=== PATIENT | female | born 1950 | race Caucasian/White ===

== ENCOUNTER → 2017-01-19 | Outpatient (CLI) | payer OTHER ==
[~2017-01-19] MED LIST: ASPI81TA28 PO; CYAN500T SL; LORA-741 PO; LPR25 PO; OMEG10007 PO; TRAM-10 PO
[2017-01-19 11:30] LABS: BLOOD UREA NITROGEN 17 mg/dl (7-18); BUN/CREATININE RATIO 23.5 (10-20); CALCIUM 9.3 mg/dl (8.5-10.1); CARBON DIOXIDE 31 mmol/L (21-32); CHLORIDE 106 mmol/L (98-107); CREATININE 0.72 mg/dl (0.60-1.20); GLUCOSE 96 mg/dl (70-99); MAGNESIUM 2.3 mg/dl (1.8-2.4); POTASSIUM 3.8 mmol/L (3.5-5.1); SODIUM 141 mmol/L (136-145)
== END | disposition home or self-care (01) ==
LOC: C.LABBC 08:52
PROVIDERS: ATTEND Family Medicine
DX: I10 Essential (primary) hypertension (principal); E53.8 Deficiency of other specified B group vitamins; R00.2 Palpitations

== ENCOUNTER → 2017-07-19 | Outpatient (CLI) | payer OTHER ==
[2017-07-19 11:03] LABS: BASO % 0.4 %; BASO ABS # 0.02 K/uL (0-0.2); COMPLETE YES; EOS % 1.5 %; HEMATOCRIT 43.3 % (37-47); LYMPH % 40.6 %; LYMPH ABS # 2.21 K/uL (1.2-3.4); MEAN CELL VOLUME 91.2 fL (80-100); MEAN CORPUSCULAR HEMOGLOBIN 29.5 pg (25-34); MEAN CORPUSCULAR HGB CONC 32.3 g/dl (32-36); MEAN PLATELET VOLUME 9.7 fL (7.4-10.4); NEUT % 48.5 %; PLATELET COUNT 267 K/uL (130-400); RED BLOOD COUNT 4.75 M/uL (4.2-5.4); WHITE BLOOD COUNT 5.45 K/uL (4.8-10.8)
[2017-07-19 11:21] LABS: BLOOD UREA NITROGEN 23 mg/dl (7-18); BUN/CREATININE RATIO 32.9 (10-20); CALCIUM 9.4 mg/dl (8.5-10.1); CARBON DIOXIDE 29 mmol/L (21-32); CHLORIDE 105 mmol/L (98-107); CHOLESTEROL 201 mg/dl (0-200); CREATININE 0.69 mg/dl (0.60-1.20); GLUCOSE 100 mg/dl (70-99); POTASSIUM 4.5 mmol/L (3.5-5.1); SODIUM 140 mmol/L (136-145)
[2017-07-19 11:24] LABS: CHOLESTEROL/HDL RATIO 3.5; HDL CHOLESTEROL 57 mg/dl; LDL CHOLESTEROL CALCULATED 123 mg/dl; TRIGLYCERIDES 105 mg/dl (0-150); VERY LOW DENSITY LIPOPROT CALC 21 mg/dl
== END | disposition home or self-care (01) ==
LOC: C.LABBC 07:27
PROVIDERS: ATTEND Family Medicine
DX: Z00.00 Encounter for general adult medical examination without abnormal findings (principal); I10 Essential (primary) hypertension; E53.8 Deficiency of other specified B group vitamins; G43.909 Migraine, unspecified, not intractable, without status migrainosus; Z13.220 Encounter for screening for lipoid disorders

== ENCOUNTER 2024-08-21 00:10 | Inpatient (IN) ==
--- OUTSIDE RECORDS SUMMARY | 2024-08-21 00:17 | External Medical Summary | Summary of Care ---
Author Name Unknown Organization [facility] Address [address] [place] [address] Phone [phone] Care Team Providers Care Spine Supervisor Name Role Phone Joceline Salter DO Primary Care Provider [phone]- [phone] Reason for Referral * Precert (Within 10 days (routine)) - Authorized Specialty Diagnoses / Procedures Referred By Contac t Referred To Contact Cardiac Studies Diagnoses Abnormal echocardiogram HTN, goal below 140/90 Procedures ECHO, COMPLETE (2D), TRANS-THORACIC Lo Eli CRNP [address] [place] [address] Referral ID Status Reason Start Date Expiration Date V isits Requested Visits Authorized [id number] Authorized Precert 10/21/2024 999 999 Reason for Visit * Reason Onset Date Comments Test Results 04/21/2024 Encounter Details Date Type Department Care Team (Late st Contact Info) Description 04/21/2024 Telephone Cardiology, [facility] [address] [place] [address] Lo Eli CRNP [address] [place] [address] Test Results Allergies Active Allergy Reactions Criticality Noted Date Comments Atorvastatin 05/06/2023 Joint pain Carvedilol Psych complications 07/01/2023 Estrogens 03/30/2016 Hydrochlorothiazide Other (Please comment) 07/01/2023 Fatigue,visual problems,muscle weakness, Indapamide 10/07/2023 Increased BP, agitation, shaky Lisinopril Other (Please comment) 07/01/2023 Visual problems, muscle cramps, Morphine And Codeine Rash 04/17/2010 Morphine Sulfate 04/17/2010 Nausea and vomiting Oxycodone-Acetaminophen 04/17/2010 Hallucinations Fluoxetine Other (Please comment) 03/30/2016 Chest pain and difficulty breathing documented as of this encounter (statuses as of 07/21/2024) Medications Medication Sig Dispensed Refills Start Date End Date Status B-12 [address] under the tongue. 04/17/2010 Active IMODIUM A-D 2 MG PO TABS Take by mouth as needed. Active Mometasone Furoate 0.1 % External Solution (Elocon)Indication s:Plant allergic contact dermatitis Apply topically to affected area 1 Applicator daily . 60 mL 04/01/2022 Active Aspirin 81 MG Oral Tablet Chewable (Aspirin 81) Take 1 Tablet by mouth in the morning. Active OneTouch Verio In Vitro Strip (Glucose Blood)Indications: Hypoglycemia Use up to 4 times a day for hypoglycemia 100 Strip 11 11/15/2023 Active OneTouch Verio w/Device KitIndications:Hyp oglycemia Use up to 4 times a day E11.9 1 Kit 11/15/2023 Active Premarin 0.625 MG/GM Vaginal Cream (Estrogens Conjugated)Indicat ions:Vaginal dryness Administer 0.5 grams into the vagina at bedtime. As directed. 42.5 g 5 12/09/2023 Active Chlorthalidone 25 MG Oral Tablet (Hygroton) Take 1 Tablet by mouth in the morning. 30 Tablet 5 01/31/2024 Active Additional Information Patient taking differently: 12.5 mgOral Daily(AM), Reported on 02/11/2024 cloNIDine HCl 0.1 MG Oral Tablet (Catapres) Take 1 tab as needed maximal three times daily if BP > 160/100 45 Tablet 3 01/31/2024 Active Baclofen 10 MG Oral Tablet (Lioresal)Indicati ons:Muscle spasm of back Take 1 Tablet by mouth at bedtime as needed for Muscle spasms. 30 Tablet 2 04/10/2024 Active Additional Information Patient not taking.Reported on 06/01/2024 documented as of this encounter (statuses as of 07/21/2024) Active Problems Problem Noted Date Diagnosed Date Vitamin D deficiency 11/13/2022 Mixed hyperlipidemia 11/13/2022 Osteopenia of multiple sites 11/13/2022 Double vision 11/13/2022 History of TIA (transient ischemic attack) 11/13 Overview: ? in 2007. Secondary to hormone. She reports negative workup. History of colon surgery 10/15/2021 Overview: 2009 Overweight (BMI 25.0-29.9) 11/13/2019 Vaginal dryness 11/13/2019 HTN, goal below 140/90 03/30/2016 documented as of this encounter (statuses as of 07/21/2024) Resolved Problems Problem Noted Date Diagnosed Date Resolved Date Ophthalmoplegic migraine, not intractable 06/11/2023 06/17/2023 Ophthalmoplegic migraine, not intractable 06/11/2023 11/15/2023 Scoliosis 11/13/2019 11/13/2019 Leg cramps 05/12/2018 08/04/2018 INFORMATION 07/30/2017 12/24/2017 Overview: Gets increased fatigue, blurred vision, fevers and brain fog with tick borne illness PVC (premature ventricular contraction) 03/30/2016 11/09/2019 Overview: Historical. Cervicalgia 03/30/2016 11/09/2019 Overview: Acute. History of atypical nevus 05/09/2013 Overview: left lateral scapula 02/25/07 Historical. Diverticulitis of colon 05/14/201010/25 documented as of this encounter (statuses as of 07/21/2024) Immunizations Name Administration Dates Next Due COVID-19 mRNA, LNP-s, No Pre serve, 2-Dose Series ([employer]) 08/21/2023,05/08/2022,08/30/2021,01/22,12/27/2020 Pneumococcal Conjugate Vacc, 13 Valent (Prevnar) 07/28/2016 Pneumococcal Polysaccharide PPV23 (Pneumovax) 08/04/2018 Season Influenza, Quad, PF, Adjuvanted, 65+ Yrs, IM (FLUAD) 07/31/2020 Seasonal Influenza, PF, 6 M & above, IM , (FluLaval or Fluzone) 08/04/2018,07/30/2017 Seasonal Influenza, Quadriva lent Hd (Fluzone Hd) 07/19/2023,08/07/2022,07/31/2021 Seasonal Influenza, Trivalen t, Adjuvanted, 65+ YRS, PF, (Fluad) 08/18/2019 TDAP (age 10 and older)(Boostrix) 11/13/2019 Zoster Vaccine Recombinant (Shingrix) 05/05/2021 documented as of this encounter Social History Tobacco Use Types Packs/Day Years Used Date Smoking Tobacco: Former Smokeless Tobacco: Never Comments:quit 33 years ago Alcohol Use Standard Drinks/Week Comments No 0 (1 standard drink = 0.6 oz pur e alcohol) stopped 1979 PHQ-2 Answer Date Recorded PHQ Adult Total Score 0 06/23/2023 Hunger Vital Sign Answer Date Recorded Within the past 12 months, y ou worried that your food would run out before you got the money to buy more. Never true 11/02/19 23 Within the past 12 months, t he food you bought just didn't last and you didn't have money to get more. Never true 11/02/2022 Sex and Gender Information Value Date Recorded Sex Assigned at Female 04/06/2022 10:25 AM EDT Gender Identity Female 04/06/2022 10:25 AM EDT Sexual Orientation Straight 04/06/2022 10 :25 AM EDT Job Start Date Occupation Industry Not on file Not on file Not on file documented as of this encounter Miscellaneous Notes * Telephone Encounter - Ronak Dowling LPN - 04/21/2024 11:41 AM EDT Sent patient a [employer] message to make aware. Echo ordered. Scheduling please assist. ----- Message from Lo Eli sent at 04/19/2024 12:38 PM EDT ----- Echo showed a preserved LVEF of 55-59% Isolated basal septal hypertrophy (1.4 cm); possibly due to hypertension. Mild AI. No evidence of MVP or regurgitation. Recommend repeat echo in 6 months to reassess basal septal hypertrophy. documented in this encounter Plan of Treatment Upcoming Encounters Date Type Department Care Team (Late st Contact Info) Description 10/31/2024 7:30 AM EST Cardiac Studies Cardiac Studies [facility] [place] [address] [facility] [place] [address] 02/06/2025 11:00 AM EDT Office Visit Nephrology, [facility] [address] [facility] [place] [address] Carlito Nesbitt MD [address] [facility] [place] [address] 02/14/2025 8:00 AM EDT Office Visit Family Practice [facility] [address] [facility] [place] [address] Joceline Salter DO [address] [place] [address] 04/18/2025 7:20 AM EDT Office Visit Dermatology [facility] [place] [address] [facility] [place] [address] Rita Walker PA-C [address] [place] [address] Scheduled Orders Name Type Priority Associated Diagnoses Orde r Schedule ECHO, COMPLETE (2D), TRANS-THORACIC Echocardiology Routine Abnormal echocardiogram HTN, goal below 140/90 Expected: 10/21/2024 (Approximate), Expires: 04/21/2025 Health Maintenance Due Date Last Done Comments Adult Wellness Visit 2014 Zoster Vaccines (2 of 2) 06/30/2021 05/05/2021 DXA Scan 12/08/2022 12/08/2018, 07/30/2015 Depression Screening 06/23/2024 06/23/2023 COVID-19 Vaccine ( season) 2024 08/21/2023, 05/08/2022, 08/30/2021, Additional history exists Influenza Vaccine (FLU shot) (#1) 2024 07/19/2023, 08/07/2022, 07/31/2021, Additional history exists GFR 04/08/2025 04/08/2024, 01/23, 10/04/2023, Additional history exists Albumin/Creatinine Ratio 08/03/2026 023, 11/13/2022, 07/22/2016 DTap/Tdap Vaccines (2 - Td or Tdap) 11/13/2029 11/13/2019 Colonoscopy Discontinued 02/16/2018 Colorectal Cancer Screening Discontinued RETIRED - COLONOSCOPY-EVERY 5 YRS AGES 18-100 Discontinued 02/16/2018 Pneumococcal Vaccine: 65+ Years Completed 08/04/2018, 07/28/2016 Cologuard Discontinued Fecal Occult Blood Test Discontinued HPV (Gardasil) Vaccine Aged Out No lo nger eligible based on patient's age to complete this topic Hepatitis B Vaccine Aged Out No longe r eligible based on patient's age to complete this topic MENINGOCOCCAL (MENACTRA/MENVEO) Aged Out No longer eligible based on patient's age to complete this topic Sigmoidoscopy Discontinued documented as of this encounter Medical Devices Not on filedocumented as of this encounter Visit Diagnoses Diagnosis Abnormal echocardiogram- Primary Nonspecific (abnormal) findings on radiological and other examination of other intrathoracic organs HTN, goal below 140/90 Unspecified essential hypertension documented in this encounter Advance Directives * Full Code (Latest Code Status on File) Date Activated Date Inactivated Comments 05/19/2010 11:40 AM 05/21/2010 5:47 PM This order reflects the patients wishes and were consensually agreed upon. Care Teams Spine Supervisor Relationship Specialty Start Date End Date Joceline Salter DO [address] [facility] [place] [address] PCP - General Family Medicine 10/14/23 documented as of this encounter
--- OUTSIDE RECORDS SUMMARY | 2024-08-21 00:17 | External Medical Summary | Summary of Care ---
Author Name Unknown Organization [facility] Address [address] [place] [address] Phone [phone] Care Team Providers Care Front Desk Clerk Name Role Phone Joceline Salter DO Primary Care Provider [phone]- [phone] Reason for Visit * Reason Onset Date Comments Other 06/12/2024 Encounter Details Date Type Department Care Team (Late st Contact Info) Description 06/12/2024 Telephone Nephrology, [address] [address] Services, Scheduling [address] [place] [address] Other Allergies Active Allergy Reactions Criticality Noted Date [...] as of this encounter (statuses as of 06/13/2024) Medications Medication Sig Dispensed Refills Start Date [...] Additional Information Patient not taking.Reported on 06/01/2024 cloNIDine HCl 0.3 MG Oral Tablet take one tablet by mouth in the morning and one tablet before bedtime 60 Tablet 11 06/01/2024 Active documented as of this encounter (statuses as of 06/13/2024) Active Problems Problem Noted Date Diagnosed Date Vitamin D deficiency 11/13/2022 Mixed hyperlipidemia 11/13/2022 Osteopenia of multiple sites 11/13/2022 Double vision 11/13/2022 History of TIA (transient ischemic attack) 11/13 Overview: ? in 2007. Secondary to hormone. She reports negative workup. History of colon surgery 10/15/2021 Overview: 2010 Overweight (BMI 25.0-29.9) 11/13/2019 Vaginal dryness 11/13/2019 HTN, goal below 140/90 03/30/2016 documented as of this encounter (statuses as of 06/13/2024) Resolved Problems Problem Noted Date Diagnosed Date [...] as of this encounter (statuses as of 06/13/2024) Immunizations Name Administration Dates Next Due COVID-19 mRNA, LNP-s, No Pre serve, 2-Dose Series ([email or web address]) 08/21/2023,05/08/2022,08/30/2021,01/22,12/27/2020 Pneumococcal Conjugate Vacc, 13 Valent (Prevnar) 07/28/2016 Pneumococcal Polysaccharide PPV23 (Pneumovax) 08/04/2018 Season Influenza, Quad, PF, Adjuvanted, 65+ Yrs, IM (FLUAD) 07/31/2020 Seasonal Influenza, PF, 6 M & above, IM , (FluLaval or Fluzone) 08/04/2018,07/30/2017 Seasonal Influenza, Quadriva lent Hd (Fluzone Hd) 07/19/2023,08/07/2022,07/31/2021 Seasonal Influenza, Trivalen t, Adjuvanted, 65+ yrs 08/18/2019 TDAP (age 10 and older)(Boostrix) 11/13/2019 [...] encounter Miscellaneous Notes * Telephone Encounter - Carlito Nesbitt MD - 06/13/2024 10:16 AM EDT Maybe the tab dose is not equivalent to Patch. lets do clonidine 0.1 mg twice daily. Will need new Rx though. * Telephone Encounter - Tali Quintana LPN - 06/12/2024 11:47 AM EDT Pt states took Clonidine 0.3 mg first dose last Pm then went to bed (Pt had been on the patch priorbut was changed due to cost and skin irritation) Awoke this AM feeling dizzy unsteady [place] like I was in a brain fog" and very tired fatigued " BP @ 1100 112/67 P 54 1130 96/58 P 57 Pt is questioningif she can try 1/2 the dose and see how she does with that Or go back to patch Please advise * Telephone Encounter - Etelvina Loving OSA - 06/12/2024 11:21 AM EDT Good morning, Pt on the line, requesting a call back from Dr. Nesbitt sometime today, she is having a reaction toa medication. Please give her a call back at [phone] documented in this encounter Plan of Treatment Upcoming Encounters Date Type Department Care Team (Late st Contact Info) Description 10/31/2024 7:30 AM EST [facility] [address] [facility] [place] [address] 02/06/2025 11:00 AM EDT Office Visit Nephrology, [facility] [address] [facility] [place] [address] Carlito Nesbitt MD [address] [facility] [place] [address] 02/14/2025 8:00 AM EDT Office Visit Family Practice [facility] [address] [facility] [place] [address] Joceline Salter DO [address] [facility] [place] [address] 04/18/2025 7:20 AM EDT Office Visit Dermatology [place] [facility] [place] [address] [facility] [place] [address] Rita Walker PA-C [address] [facility] [place] [address] Health Maintenance Due Date Last Done Comments Adult Wellness Visit 2014 Zoster Vaccines (2 of 2) 06/30/2021 05/05/2021 DXA Scan 12/08/2022 12/08/2018, 07/30/2015 COVID-19 Vaccine ( season) 2023 08/21/2023, 05/08/2022, 08/30/2021, Additional history exists Depression Screening 06/23/2024 06/23/2023 Influenza Vaccine (FLU shot) (#1) 2024 07/19/2023, 08/07/2022, 07/31/2021, Additional history exists GFR 04/08/2025 04/08/2024, 01/23, 10/04/2023, Additional history exists Albumin/Creatinine Ratio 08/03/2026 023, 11/13/2022, 07/22/2016 DTaP,Tdap,and Td Vaccines (2 - Td or Tdap) 11/13/2029 [...] Not on filedocumented as of this encounter Advance Directives * Full Code (Latest Code Status on File) Date Activated Date Inactivated Comments 05/19/2010 11:40 AM 05/21/2010 5:47 PM This order reflects the patients wishes and were consensually agreed upon. Care Teams Front Desk Clerk Relationship Specialty Start Date End Date Joceline Salter DO [address] [facility] [place] [id number] PCP - General Family Medicine 10/14/23 documented as of this encounter
--- OUTSIDE RECORDS SUMMARY | 2024-08-21 00:17 | External Medical Summary | Summary of Care ---
Author Name Unknown Organization [facility] Address [address] [place] [address] Phone [phone] Care Team Providers Care Hook And Eye Sewing Machine Operator Name Role Phone Joceline Salter DO Primary Care Provider [phone] Reason for Visit * Reason Comments NEW PATIENT * Evaluate & Treat - Unlimited Visits (Within 10 days (routine)) - Authorized Specialty Diagnoses / Procedures Referred By Evonne rachel Referred To Contact CLINICAL PHARMACY TECHNICIAN - Urogynecology / Gynecology Urology Diagnoses Cystocele with prolapse Joceline Salter DO [address] [place] [address] Referral ID Status Reason Start Date Expiration Date Visits Requested Visits Authorized [id number] Authorized Specialty Services Required [phone] Encounter Details Date Type Department Care Team (Late st Contact Info) Description 08/15/2024 2:55 PM EDT Office Visit Urogynecology Urvashi Rush [address] [place] [address] Fran Ojeda MD [address] [place] [address] Nurse Jennifer Rush [address] [place] [address] Cystocele, midline*; Vaginal vault prolapse, posthysterectomy; AMADO (stress urinary incontinence, female); Urgency of urination; Vaginal atrophy Allergies Active Allergy Reactions Criticality Noted Date [...] as of this encounter (statuses as of 08/15/2024) Medications Medication Sig Dispensed Refills Start Date End Date Status B-12 [address] under the tongue. 04/17/2010 Active IMODIUM A-D 2 MG PO TABS Take by mouth as needed. Active Mometasone Furoate 0.1 % External Solution (Elocon)Indicatio ns:Plant allergic contact dermatitis Apply topically to affected area 1 Applicator daily . 60 mL 04/01/2022 Active Aspirin 81 MG Oral Tablet Chewable (Aspirin 81) Take 1 Tablet by mouth in the morning. Active OneTouch Verio In Vitro Strip (Glucose Blood)Indications :Hypoglycemia Use up to 4 times a day for hypoglycemia 100 Strip 11 11/15/2023 Active OneTouch Verio w/Device KitIndications:Hy poglycemia Use up to 4 times a day E11.9 1 Kit 11/15/2023 Active Premarin 0.625 MG/GM Vaginal Cream (Estrogens Conjugated)Indica tions:Vaginal dryness Administer 0.5 grams into the vagina [...] 01/31/2024 Active Baclofen 10 MG Oral Tablet (Lioresal)Indicat ions:Muscle spasm of back Take 1 Tablet by mouth at bedtime as needed for Muscle spasms. 30 Tablet 2 04/10/2024 Active Additional Information Patient not taking.Reported on 08/15/2024 cloNIDine 0.2 MG/24HR Transdermal Patch Weekly (Catapres-Tts- 2)Indications:HTN , goal below 140/90 Place 1 Patch topically on the skin once a week. 12 Patch 1 07/06/2024 Active cloNIDine HCl 0.3 MG Oral Tablet take one tablet by mouth in the morning and one tablet before bedtime 60 Tablet 11 06/01/2024 Discontinue d(Patient preference/ discontinua tion) documented as of this encounter (statuses as of 08/15/2024) Active Problems Problem Noted Date Diagnosed Date Cystocele, midline 08/15/2024 Vaginal vault prolapse, posthysterectomy 024 AMADO (stress urinary incontinence, female) 2023 Vitamin D deficiency 11/13/2022 Mixed hyperlipidemia 11/13/2022 Osteopenia of multiple sites 11/13/2022 Double vision 11/13/2022 History of TIA (transient ischemic attack) 11/13 Overview: ? in 2007. Secondary to hormone. She reports negative workup. History of colon surgery 10/15/2021 Overview: 2010 Overweight (BMI 25.0-29.9) 11/13/2019 Vaginal dryness 11/13/2019 HTN, goal below 140/90 03/30/2016 documented as of this encounter (statuses as of 08/15/2024) Resolved Problems Problem Noted Date Diagnosed Date [...] as of this encounter (statuses as of 08/15/2024) Immunizations Name Administration Dates Next Due COVID-19 mRNA, LNP-s, No Pre serve, 2-Dose Series (ZootRock) 08/21/2023,05/08/2022,08/30/2021,01/22,12/27/2020 Pneumococcal Conjugate Vacc, 13 Valent (Prevnar) [...] Date Smoking Tobacco: Former Smokeless Tobacco: Never Tobacco Cessation:Counseling Given: Not Answered Comments:quit 33 years ago Alcohol Use Standard Drinks/Week Comments No 0 (1 standard drink = 0.6 oz pur e alcohol) stopped 1979 PHQ-2 Answer Date Recorded PHQ Adult Total Score 0 06/23/2023 Hunger Vital Sign Answer Date Recorded Within the past 12 months, y ou worried that your food would run out before you got the money to buy more. Never true 02/01/20 24 Within the past 12 months, t he food you bought just didn't last and you didn't have money to get more. Never true 02/01/2024 Childcare Answer Date Recorded Do you feel overwhelmed with taking care of a child, family member or friend? No 02/01/2024 Does your family need help f inding childcare? (Household - for ages 0-17 years) Not on file 02/01/2024 Clothing Answer Date Recorded Have you been unable to get clothing when it was really needed? No 02/01/2024 Is your family able to get c lothes or diapers when needed? (Household - for ages 0-17 years) Not on file 02/01/2024 Personal Safety Answer Date Recorded Do you feel unsafe or have concerns for your saf ety? No 02/01/2024 Do you have concerns for you r family's safety? (Household - for ages 0-17 years) Not on file 02/01/2024 Utilities Answer Date Recorded Do you have trouble paying y our heating, water, or electric bill? No 02/01/2024 Is your family able to pay t he heat, water, or electric bill? (Household - for ages 0-17 years) Not on file 02/01/2024 Does your family have access to good internet? (Household - for ages 0-17 years) Not on file 02/01/2024 Employment Status Answer Date Recorded Are you unemployed or without regular income? No 02/01/2024 Does the household have a re gular source of income? (Household - for ages 0-17 years) Not on file 02/01/2024 Social Connections Answer Date Recorded How often do you feel lonely or isolated from th ose around you? Never 02/01/2024 Financial Resource Strain Answer Date R ecorded Do you have any trouble payi ng for your medications, or do you think you might in the future? No 02/01/2024 Does your family have troubl e paying for medicine? (Household - for ages 0-17 years) Not on file 02/01/2024 Transportation Needs Answer Date Record ed READ ONLY Do you have troubl e getting a ride to medical visits or work? Never True 02/01/2024 Does your family have a hard time getting a ride to doctors visits? (Household - for ages 0-17 years) Not on file 02/01/2024 Has lack of transportation k ept you from medical appointments, meetings, work, or from getting things needed for daily living? Check all that apply. (Adult - for ages 18 years and over) Not on file 02/01/2024 Do you (or your family) have trouble finding or paying for a ride (transportation)? (Household - for ages 0-17 years) Not on file 02/01/2024 Housing Stability Answer Date Recorded Do you currently live in a s helter or have no steady place to sleep at night? No 02/01/2024 READ ONLY Do you think you a re at risk of becoming homeless? No 02/01/2024 Does your family worry about paying for your home or becoming homeless? (Household - for ages 0-17 years) Not on file 0 02/01/2024 Are you homeless or worried that you might be in the future? (Adult - for ages 18 years and over) Not on file Are you (or your family) jah eless or worried that you might be in the future? (Household - for ages 0-17 years) Not on file Food Insecurity Answer Date Recorded Do you need food for this week? No 02/01/2024 Are you able to get enough f ood for your family? (Household - for ages 0-17 years) Not on file 02/01/2024 Does your family need food t his week? (Household - for ages 0-17 years) Not on file 02/01/2024 Do you always have enough fo od for your family? (Household - for ages 0-17 years) Not on file 02/01/2024 Sex and Gender Information Value Date Recorded Sex Assigned at Female 04/06/2022 10:25 AM EDT Gender Identity Female 04/06/2022 10:25 AM EDT Sexual Orientation Straight 04/06/2022 10 :25 AM EDT Job Start Date Occupation Industry Not on file Not on file Not on file documented as of this encounter Last Filed Vital Signs Vital Sign Reading Time Taken Comments Blood Pressure 162/92 08/15/2024 2:53 PM EDT Pulse - - Temperature - - Respiratory Rate - - Oxygen Saturation - - Inhaled Oxygen Concentration - - Weight 67.9 kg (149 lb 12.8 oz) 08/15/2024 2:53 PM EDT Height 160 cm (5' 3") 08/15/2024 2:53 PM EDT Body Mass Index 26.54 08/15/2024 2:53 PM EDT documented in this encounter Progress Notes * Eunice Meyer - 08/15/2024 2:55 PM EDT Diya Hawkins is a 74 year old female P 2P002 here for evaluation of cystocele with prolapse. Referred by Joceline Salter DO. Patient reports several weeks ago she went to the bathroom, wiped, and felt a tissue protrusion from her vagina. Patient has a history of hysterectomy. Urinary: Leakage: experienced LOF prior to prolapse, now has urgency. Denies frequency Wears pads: No She denies a sense of incomplete bladder emptying. Prior/current treatment include: None UTI: She states she has had no urinary tract infections in the past year. Voiding detail: Daytime frequency: Denies Urgency Admits Nocturia:1-2x a night Hesitancy: prior to prolapse Straining: prior to prolpase Hematuria Denies Postvoid dribbling Denies Postvoid urgency denies Manual reduction Admits to leakage of urine with cough Prolapse: She admits a palpable bulge and admits symptoms of pelvic pressure. Patient reports she has to manually reduce several times a day GI: Bowel habits: hx of diverticulitis, no consistency in BM. Has hx of bowel resections 12 inches due to diverticulitis, reports surgery was completed through rectum She denies fecal incontinence. Gynecologic history: endometriosis. Medical History: Patient Active Problem List Diagnosis HTN, goal below 140/90 Overweight (BMI 25.0-29.9) Vaginal dryness History of colon surgery Vitamin D deficiency Mixed hyperlipidemia Osteopenia of multiple sites Double vision History of TIA (transient ischemic attack) Past Medical History: Diagnosis Date Diverticulitis of colon 05/14/2010 Diverticulitis of colon 05/14/2010 Patient sees Joceline Salter DO as her primary care provider. Surgical History: Past Surgical History: Procedure Laterality Date CYSTOSCOPY/INSERTION OF STENT 05/19/2010 CYSTOURETHROSCOPY WITH INSERTION URETERAL STENT performed by NICHOLAS VELASCO at OR [facility] INFORMATION Clavicle fx repair INFORMATION 1997 Nevus sebacceous wendy removal LAP;W/HYSTERECTOMY Hysterectomy Complete PARTIAL REMOVAL OF COLON 12" removed REMOVAL OF APPENDIX Appendectomy REMOVE TONSILS & ADENOIDS, UNDER 12 Tonsillectomy/Adenoids,<12 Y/O REPAIR RECURRENT INGUINAL HERNIA 1996 Inguinal Hernia Repair, Recurrent OB History 2 Para 2 Term 2 AB Living 2 SAB IAB Ectopic Multiple Live Births Vaginal deliveries: 2 C/S: 0 Allergies: Review of patient's allergies indicates: Allergen Reactions Atorvastatin Joint pain Coreg [Carvedilol] Psych complications Estrogens Hydrochlorothiazide Other (Please comment) Fatigue,visual problems,muscle weakness, Indapamide Increased BP, agitation, shaky Lisinopril Other (Please comment) Visual problems, muscle cramps, Morphine And Codeine Rash Morphine Sulfate Nausea and vomiting Percocet [Oxycodone-Acetaminophen] Hallucinations Prozac [Fluoxetine] Other (Please comment) Chest pain and difficulty breathing Active Medications: Current Outpatient Medications Medication Sig Dispense Refill B-12 [address] under the tongue. IMODIUM A-D 2 MG PO TABS Take by mouth as needed. Mometasone Furoate 0.1 % External Solution (Elocon) Apply topically to affected area 1 Applicator daily . 60 mL 0 Aspirin 81 MG Oral Tablet Chewable (Aspirin 81) Take 1 Tablet by mouth in the morning. Premarin 0.625 MG/GM Vaginal Cream (Estrogens Conjugated) Administer 0.5 grams into the vagina at bedtime. As directed. 42.5 g 5 Chlorthalidone 25 MG Oral Tablet (Hygroton) Take 1 Tablet by mouth in the morning. (Patient taking differently: Take 0.5 Tablets by mouth in the morning.) 30 Tablet 5 cloNIDine HCl 0.1 MG Oral Tablet (Catapres) Take 1 tab as needed maximal three times daily if BP > 160/100 45 Tablet 3 cloNIDine 0.2 MG/24HR Transdermal Patch Weekly (Catapres-Tts- 2) Place 1 Patch topically on the skin once a week. 12 Patch 1 OneTouch Verio In Vitro Strip (Glucose Blood) Use up to 4 times a day for hypoglycemia 100 Strip 11 OneTouch Verio w/Device Kit Use up to 4 times a day E11.9 1 Kit 0 Baclofen 10 MG Oral Tablet (Lioresal) Take 1 Tablet by mouth at bedtime as needed for Muscle spasms. (Patient not taking: Reported on 08/15/2024) 30 Tablet 2 No current facility-administered medications for this visit. Social History: Social History Socioeconomic History Marital status: Tobacco Use Smoking status: Former Smokeless tobacco: Never Tobacco comments: quit 33 years ago Vaping Use Vaping status: Never Used Substance and Sexual Activity Alcohol use: No Comment: stopped 1979 Drug use: No Sexual activity: Yes control/protection: Surgical Social Determinants of Health Financial Resource Strain: Low Risk (02/01/2024) Financial Resource Strain Do you have any trouble paying for your medications, or do you think you might in the future? (Adult - for ages 18 years and over): No Food Insecurity: No Food Insecurity (02/01/2024) Food Insecurity Do you need food for this week? (Adult - for ages 18 years and over): No Transportation Needs: No Transportation Needs (02/01/2024) Transportation Needs Do you have trouble getting a ride to medical visits or work? (Adult - for ages 18 years and over):Never True Social Connections: Socially Integrated (02/01/2024) Social Connections How often do you feel lonely or isolated from those around you? (Adult - for ages 18 years and over): Never Housing Stability: Low Risk (02/01/2024) Housing Stability Do you currently live in a alf or have no steady place to sleep at night? (Adult - for ages 18 years and over): No Do you think you are at risk of becoming homeless? (Adult - for ages 18 years and over): No Family History: Family History Problem Relation Name Age of Onset Lymphoma Mother Hypertension Mother Heart disease Father Stroke Father 89 Diabetes Brother 1/2 paternal 80 Breast Cancer Aunt (Unspecified) maternal Cancer Uncle (Unspecified) maternal Diabetes Brother 69 Hypertension Sister Ludmila Scoliosis Sister Ludmila CONSTITUTIONAL ROS: No change in weight, No weakness and No fatigue NECK ROS: No lumps or masses, PULMONARY ROS: No recent change in breathing CARDIOVASCULAR ROS: No chest pain, No shortness of breath and No dyspnea on exertion GASTROINTESTINAL ROS: No abdominal pain,as per HPI GENITO-URINARY FEMALE ROS: As per HPI MSK/EXTREMITIES ROS: denies joint pain joint stiffness back pain SKIN/INTEGUMENTARY ROS: No rash and No itching NEUROLOGICAL ROS: Normal balance No weakness PSYCHIATRIC ROS: denies depression and anxiety Refinery Pipeline Operator Documentation: Provider requested data entry manager Name of Refinery Pipeline Operator: Angelica Mullins Blood pressure 162/92, height 1.6 m (5' 3"), weight 67.9 kg (149 lb 12.8 oz), not currently . Blood pressure %amanda are not available for patients who are 18 years or older. Body mass index is 26.54 kg/m. EXAM: Well developed well nourished female in no apparent distress. Alert oriented x3 HEENT: NC AT HEART: Normal peripheral pulse, edema THYROID: no obvious neck mass LUNG: No increased respiratory effort ABDOMEN: Soft, NT, ND, PELVIC EXAM: Ext. Gen: Normal external female genitalia, no vulvar lesions. Clitoris, labia, minor vestibular glands and urethral meatus appear normal. Urethra and bladder palpated non-tender with no masses and no expressible exudate. Vagina atrophic without lesions. Cervix: surgically absent BIMANUAL EXAM: PROJECT CONTROLS SPECIALIST: positive Levator ani muscle strength 2. Tenderness elicited on palpation Rectovaginal exam: perianal area normal, anus normal, digital rectal exam negative, anal sphincter tone normal, no masses, . Aa 0 Ba 0 C 0 GH 2 PB 3 TVL -6 Ap -2 Bp -2 D The following data points/ labs were reviewed: Results for orders placed or performed in visit on 04/18/24 ECHO, COMPLETE (2D), TRANS-THORACIC Result Value Ref Range LEFT VENTRICULAR EJECTION FRACTION 55 % PVR: 62 ml via bladder scan Records/ Imaging/ Results reviewed include: N/A Impression: This is a 74 year old with cystocele and vaginal vault prolapse, and AMADO. Discussed treatment options including pessary or surgical. Discussed anterior colporrhaphy with bladder sling placement or colpocleisis with bladder sling placement. Patient is not sexually active and does not intend for sexual activity in the future. Discussed with colpocleisis, upper vagina will be closed off not allowingvaginal intercourse. Patient is understanding and would like to move forward with colpocleisis withbladder sling placement. Pessary placed in the office and patient does not have to remove until surgery date. Will obtain CBC, CMP, and EKG for presurgical workup. Went over risks of surgery including infection, bleeding, and injury to surrounding structures. (N81.11) Cystocele, midline (primary encounter diagnosis) - Will send to OR schedulers - CBC, CMP, EKG - Pessary placement in office today, will keep in vagina until surgery date (N99.3) Vaginal vault prolapse, posthysterectomy - Will send to OR schedulers - CBC, CMP, EKG (N39.3) AMADO (stress urinary incontinence, female) - Will move forward with colpocleisis with bladder sling placement - Given vaginal sensitivity during pelvic exam will avoid sacrospinous approach (R39.15) Urgency of urination (N95.2) Vaginal atrophy - Recommended to continue vaginal estrogen cream Eunice Meyer, DO PGY-2 OBGYN 08/15/2024 2:30 PM I saw and evaluated the patient today. I have reviewed the resident/fellow physician note and agree. Patient desires colpocleisis, colporrhaphy, sling, and cystoscopy. We reviewed the risks of surgeryincluding infection, bleeding, injury, pain, mesh exposure, urinary retention. All questions answered. Educational materials provided. I spent a total of 56 minutes on the date of service in preparation, delivery, and documentation ofthe care provided to Diya Hawkins excluding any time spent in the performance of separately billed services. documented in this encounter Nursing Notes * Angelica Mullins LPN - 08/15/2024 2:53 PM EDT Pt presents to clinic as a new pt Cystocele -08/06 noticed it was at vaginal opening- having to push back up in Having some burning around vaginal opening Premarin as needed Wanting surgery PVR- 62 documented in this encounter Miscellaneous Notes * Addendum Note - Fran Ojeda MD - 08/15/2024 4:08 PM EDTAddended by: FRAN OJEDA on: 08/15/2024 04:08 PM Modules accepted: Level of Service documented in this encounter Plan of Treatment Upcoming Encounters Date Type Department Care Team (Late st Contact Info) Description 10/31/2024 7:30 AM EST Cardiac Studies Cardiac Studies [facility] [place] [address] [place] [address] 02/06/2025 11:00 AM EDT Office Visit Nephrology, [facility] [address] [facility] [place] [address] Carlito Nesbitt MD [address] [facility] [place] [address] 02/14/2025 8:00 AM EDT Office Visit Family Practice [facility] [address] [place] [address] Joceline Salter DO [address] [place] [address] 04/18/2025 7:20 AM EDT Office Visit Dermatology [facility] [address] [place] [address] Rita Walker PA-C [address] [place] [address] Scheduled Orders Name Type Priority Associated Diagnoses Orde r Schedule BASIC METABOLIC PANEL Lab Routine Cystocele, midline Vaginal vault prolapse, posthysterectomy AMADO (stress urinary incontinence, female) Expected: 08/15/2024, Expires: 08/15/2025 CBC WITH WBC DIFFERENTIAL AND ANEMIA REFLEX WORKUP Lab Routine Cystocele, midline Vaginal vault prolapse, posthysterectomy AMADO (stress urinary incontinence, female) Expected: 08/15/2024, Expires: 08/15/2025 EKG EKG Routine Cystocele, midline Vaginal vault prolapse, posthysterectomy AMADO (stress urinary incontinence, female) Expected: 08/15/2024, Expires: 09/15/2025 Scheduled Procedures Name Priority Associated Diagnoses Date/Ti fl COMBINED ANTEROPOSTERIOR COLPORRHAPHY, CYSTO Cystocele, midline Vaginal vault prolapse, posthysterectomy AMADO (stress urinary incontinence, female) VAGINAL SLING PROCEDURE FOR STRESS INCONTINENCE Cystocele, midline Vaginal vault prolapse, posthysterectomy AMADO (stress urinary incontinence, female) COLPOCLEISIS Cystocele, midline Vaginal vault prolapse, posthysterectomy AMADO (stress urinary incontinence, female) Health Maintenance Due Date Last Done Comments [...] as of this encounter Visit Diagnoses Diagnosis Cystocele, midline- Primary Vaginal vault prolapse, posthysterectomy Prolapse of vaginal vault after hysterectomy AMADO (stress urinary incontinence, female) Female stress incontinence Urgency of urination Vaginal atrophy Postmenopausal atrophic vaginitis documented in this encounter Advance Directives * Full Code (Latest Code Status on File) Date Activated Date Inactivated Comments 05/19/2010 11:40 AM 05/21/2010 5:47 PM This order reflects the patients wishes and were consensually agreed upon. Care Teams Hook And Eye Sewing Machine Operator Relationship Specialty Start Date End Date Joceline Salter DO [address] [facility] [place] [address] PCP - General Family Medicine 10/14/23 documented as of this encounter
--- OUTSIDE RECORDS SUMMARY | 2024-08-21 00:17 | External Medical Summary | Summary of Care ---
Author Name Unknown Organization [facility] Address [address] [place] [address] Phone [phone] Care Team Providers Care Senior Linux Engineer Name Role Phone Joceline Salter DO Primary Care Provider +1- [phone] Reason for Referral * Evaluate & Treat - Unlimited Visits (Within 10 days (routine)) - Authorized Specialty Diagnoses / Procedures Referred By Evonne rachel Referred To Contact SODA DRY HOUSE OPERATOR - Urogynecology / Gynecology Urology Diagnoses Cystocele with prolapse Joceline Salter DO [address] [place] [address] Referral ID Status Reason Start Date Expiration Date Visits Requested Visits Authorized [id number] Authorized Specialty Services Required 4 [phone] Question Answer Referral Priority Within 10 days (routine) Where should this appointment be scheduled? [facility] What condition is the patient being referred for? Prolapse (dropped bladder, uterus, etc) Reason for Visit * Reason Comments Acute She went to the bath room yesterday, started to wipe after a BM, felt like a big mushroom, literally fell out of her vagina. She was able to push it back up in. No pain. Over the last 2 months or so, she would get a random feeling that she needed to urinate, but when she sat to go, she couldn't. Now looking back, thinking this was coming, and that was probably a sign. Doing a lot of heavy lifting. Encounter Details Date Type Department Care Team (Late st Contact Info) Description 08/07/2024 3:00 PM EDT Office Visit Family [facility] [place], [place] [address] [place] [address] Joceline Salter DO [address] [place] [address] Cystocele with prolapse* Allergies Active Allergy Reactions Criticality Noted Date [...] as of this encounter (statuses as of 08/07/2024) Medications Medication Sig Dispensed Refills Start Date End Date Status B-12 [address] under the tongue. 04/17/2010 Active IMODIUM A-D 2 MG PO TABS Take by mouth as needed. Active Mometasone Furoate 0.1 % External Solution (Elocon)Indications :Plant allergic contact dermatitis Apply topically to affected area 1 Applicator daily . 60 mL 04/01/2022 Active Aspirin 81 MG Oral Tablet Chewable (Aspirin 81) Take 1 Tablet by mouth in the morning. Active OneTouch Verio In Vitro Strip (Glucose Blood)Indications:H ypoglycemia Use up to 4 times a day for hypoglycemia 100 Strip 11 11/15/2023 Active OneTouch Verio w/Device KitIndications:Hypo glycemia Use up to 4 times a day E11.9 1 Kit 11/15/2023 Active Premarin 0.625 MG/GM Vaginal Cream (Estrogens Conjugated)Indicati ons:Vaginal dryness Administer 0.5 grams into the vagina [...] 01/31/2024 Active Baclofen 10 MG Oral Tablet (Lioresal)Indicatio ns:Muscle spasm of back Take 1 Tablet by mouth at bedtime as needed for Muscle spasms. 30 Tablet 2 04/10/2024 Active cloNIDine HCl 0.3 MG Oral Tablet take one tablet by mouth in the morning and one tablet before bedtime 60 Tablet 11 06/01/2024 Active cloNIDine 0.2 MG/24HR Transdermal Patch Weekly (Catapres-Tts- 2)Indications:HTN, goal below 140/90 Place 1 Patch topically on the skin once a week. 12 Patch 1 07/06/2024 Active documented as of this encounter (statuses as of 08/07/2024) Active Problems Problem Noted Date Diagnosed Date [...] as of this encounter (statuses as of 08/07/2024) Resolved Problems Problem Noted Date Diagnosed Date [...] as of this encounter (statuses as of 08/07/2024) Immunizations Name Administration Dates Next Due COVID-19 mRNA, LNP-s, No Pre serve, 2-Dose Series ([employer]) 08/21/2023,05/08/2022,08/30/2021,01/22,12/27/2020 Pneumococcal Conjugate Vacc, 13 Valent (Prevnar) [...] Former Smokeless Tobacco: Never Tobacco Cessation:Counseling Given: No Comments:quit 33 years ago Alcohol Use Standard [...] Sign Reading Time Taken Comments Blood Pressure 164/82 08/07/2024 3:04 PM EDT Pulse 69 08/07/2024 3:04 PM EDT Temperature 36.7 C (98 F) 08/07/2024 3:04 PM EDT Respiratory Rate 20 08/07/2024 3:04 PM EDT Oxygen Saturation 95% 08/07/2024 3:04 PM EDT Inhaled Oxygen Concentration - - Weight 67.9 kg (149 lb 9.6 oz) 08/07/2024 3:04 P M EDT Height 160.7 cm (5' 3.25") 08/07/2024 3:04 PM ED T Body Mass Index 26.29 08/07/2024 3:04 PM EDT documented in this encounter Progress Notes * Joceline Salter, - 08/07/2024 4:59 PM EDT Subjective Diya Hawkins is a 74 year old female. Chief Complaint Patient presents with Acute She went to the bathroom yesterday, started to wipe after a BM, felt like a big mushroom, literallyfell out of her vagina. She was able to push it back up in. No pain. Over the last 2 months or so, she would get a random feeling that she needed to urinate, but when she sat to go, she couldn't. Nowlooking back, thinking this was coming, and that was probably a sign. Doing a lot of heavy lifting. HPI: 74-year-old female here today for acute visit Chart reviewed Patient states that when she went to the bathroom yesterday she was having some pelvic pressure, felt like her bladder was prolapsing, states that look like something was falling out of her vagina She has had some issues with urinary urgency Pelvic pressure seem to get worse after she was doing some heavy lifting She denies any significant bowel issues although she has had a previous colon surgery Patient is asking for referral to Gynecology PMH: Patient Active Problem List Diagnosis HTN, goal below 140/90 Overweight (BMI 25.0-29.9) Vaginal dryness History of colon surgery Vitamin D deficiency Mixed hyperlipidemia Osteopenia of multiple sites Double vision History of TIA (transient ischemic attack) Current Outpatient Medications Medication Sig Dispense Refill B-12 [address] under the tongue. IMODIUM A-D 2 MG PO TABS Take by mouth as needed. Mometasone Furoate 0.1 % External Solution (Elocon) Apply topically to affected area 1 Applicator daily . 60 mL 0 Aspirin 81 MG Oral Tablet Chewable (Aspirin 81) Take 1 Tablet by mouth in the morning. OneTouch Verio In Vitro Strip (Glucose Blood) Use up to 4 times a day for hypoglycemia 100 Strip 11 OneTouch Verio w/Device Kit Use up to 4 times a day E11.9 1 Kit 0 Premarin 0.625 MG/GM Vaginal Cream (Estrogens Conjugated) [...] if BP > 160/100 45 Tablet 3 Baclofen 10 MG Oral Tablet (Lioresal) Take 1 Tablet by mouth at bedtime as needed for Muscle spasms. 30 Tablet 2 cloNIDine HCl 0.3 MG Oral Tablet take one tablet by mouth in the morning and one tablet before bedtime 60 Tablet 11 cloNIDine 0.2 MG/24HR Transdermal Patch Weekly (Catapres-Tts- 2) Place 1 Patch topically on the skin once a week. 12 Patch 1 No current facility-administered medications for this visit. Past Medical History: Diagnosis Date Diverticulitis of colon 05/14/2010 Diverticulitis of colon 05/14/2010 Past Surgical History: Procedure Laterality Date CYSTOSCOPY/INSERTION OF STENT 05/19/2010 CYSTOURETHROSCOPY WITH INSERTION URETERAL STENT [place]CO [place] [facility] [place] [facility] [place] Clavicle fx repair INFORMATION 1997 Nevus sebacceous wendy removal LAP;W/HYSTERECTOMY Hysterectomy Complete PARTIAL REMOVAL OF COLON 12" removed REMOVAL OF APPENDIX Appendectomy REMOVE TONSILS & ADENOIDS, UNDER 12 Tonsillectomy/Adenoids,<12 Y/O REPAIR RECURRENT INGUINAL HERNIA 1995 Inguinal Hernia Repair, Recurrent Review of patient's allergies indicates: Allergen Reactions Atorvastatin Joint pain Coreg [Carvedilol] Psych complications Estrogens Hydrochlorothiazide Other (Please comment) Fatigue,visual problems,muscle weakness, Indapamide Increased BP, agitation, shaky Lisinopril Other (Please comment) Visual problems, muscle cramps, Morphine And Codeine Rash Morphine Sulfate Nausea and vomiting Percocet [Oxycodone-Acetaminophen] Hallucinations Prozac [Fluoxetine] Other (Please comment) Chest pain and difficulty breathing Family History Problem Relation Name Age of Onset Lymphoma Mother Hypertension Mother Heart disease Father Stroke Father 89 Diabetes Brother 1/2 paternal 80 Breast Cancer Aunt (Unspecified) maternal Cancer Uncle (Unspecified) maternal Diabetes Brother 69 Hypertension Sister Ludmila Scoliosis Sister Ludmila Family Status Relation Status Mo Fa Bro MGMA MGFA PGMA PGFA AUNT UNCLE Bro Sis Alive Won Alive Won Alive Social History Socioeconomic History Marital status: Spouse name: Not on file Number of children: Not on file Years of education: Not on file Highest education level: Not on file Occupational History Not on file Tobacco Use Smoking status: Former Smokeless tobacco: Never Tobacco comments: quit 33 years ago Vaping Use Vaping status: Never Used Substance and Sexual Activity Alcohol use: No Comment: stopped 1979 Drug use: No Sexual activity: Yes control/protection: Surgical Other Topics Concern Not on file Social History Narrative Not on file Social Determinants of Health Financial Resource Strain: Low Risk (02/01/2024) Financial Resource Strain Do you have any trouble paying for your medications, or do you think you might in the future? (Adult - for ages 18 years and over): No Does your family have trouble paying for medicine? (Household - for ages 0-17 years): Not on file Food Insecurity: No Food Insecurity (02/01/2024) Food Insecurity Do you need food for this week? (Adult - for ages 18 years and over): No Are you able to get enough food for your family? (Household - for ages 0-17 years): Not on file Does your family need food this week? (Household - for ages 0-17 years): Not on file Do you always have enough food for your family? (Household - for ages 0-17 years): Not on file Transportation Needs: No Transportation Needs (02/01/2024) Transportation Needs Do you have trouble getting a ride to medical visits or work? (Adult - for ages 18 years and over):Never True Does your family have a hard time getting a ride to doctors visits? (Household - for ages 0-17 years): Not on file Has lack of transportation kept you from medical appointments, meetings, work, or from getting things needed for daily living? Check all that apply. (Adult - for ages 18 years and over): Not on file Do you (or your family) have trouble finding or paying for a ride (transportation)? (Household - for ages 0-17 years): Not on file Social Connections: Socially Integrated (02/01/2024) Social Connections How often do you feel lonely or isolated from those around you? (Adult - for ages 18 years and over): Never Housing Stability: Low Risk (02/01/2024) Housing Stability Do you currently live in a fpc or have no steady place to sleep at night? (Adult - for ages 18 years and over): No Do you think you are at risk of becoming homeless? (Adult - for ages 18 years and over): No Does your family worry about paying for your home or becoming homeless? (Household - for ages 0-17 years): Not on file Are you homeless or worried that you might be in the future? (Adult - for ages 18 years and over): Not on file Are you (or your family) homeless or worried that you might be in the future? (Household - for ages0-17 years): Not on file Objective BP 164/82 | Pulse 69 | Temp 36.7 C (98 F) (Temporal Artery) | Resp 20 | Ht 1.607 m (5' 3.25") |Wt 67.9 kg (149 lb 9.6 oz) | SpO2 95% | BMI 26.29 kg/m | BSA 1.74 m Physical Exam Constitutional: Appearance: Normal appearance. Genitourinary: Comments: Patient refused Neurological: Mental Status: She is alert. Psychiatric: Mood and Affect: Mood normal. Behavior: Behavior normal. ASSESSMENT/PLAN: Cystocele with prolapse (Primary) - UROGYNECOLOGY CLINIC REFERRAL OP (FEMALE ONLY) Will refer to Urogynecology Recommend patient call the office with any worsening symptoms Follow-up at regular scheduled visit Follow Up: Return if symptoms worsen or fail to improve. Joceline Salter DO documented in this encounter Nursing Notes * Ana Espinoza LPN - 08/07/2024 3:00 PM EDT Chief Complaint Patient presents with Acute She went to the bathroom yesterday, started to wipe after a BM, felt like a big mushroom, literallyfell out of her vagina. She was able to push it back up in. No pain. Over the last 2 months or so, she would get a random feeling that she needed to urinate, but when she sat to go, she couldn't. Nowlooking back, thinking this was coming, and that was probably a sign. Doing a lot of heavy lifting. documented in this encounter Plan of Treatment Upcoming Encounters Date Type Department Care Team (Late st Contact Info) Description 09/11/2024 1:35 PM EST Office Visit Urogynecology [facility] [address] [place] [address] Fran Ojeda MD [address] [place] [address] Nurse Jennifer Rush [address] [address] 10/31/2024 7:30 AM EST Cardiac Studies Cardiac Studies [address] [place] [address] 02/06/2025 11:00 AM EDT Office Visit Nephrology, Myra [address] [address] [facility] [place] [address] Carlito Nesbitt MD [address] [facility] [place] [address] 02/14/2025 8:00 AM EDT Office Visit Family Practice [address], [place] [address] [place] [address] Joceline Salter, [address] [place] [address] 04/18/2025 7:20 AM EDT Office Visit Dermatology [address], [place] [address] [place] [address] Rita Walker PA-C [address] [place] [address] Scheduled Referrals Name Type Priority Associated Diagnoses Order Schedule UROGYNECOLOGY CLINIC REFERRAL OP (FEMALE ONLY) Referral Within 10 days (routine) Cystocele with prolapse Ordered: 08/07/2024 Health Maintenance Due Date Last Done Comments [...] as of this encounter Visit Diagnoses Diagnosis Cystocele with prolapse- Primary documented in this encounter Advance Directives * Full Code (Latest Code Status on File) Date Activated Date Inactivated Comments 05/19/2010 11:40 AM 05/21/2010 5:47 PM This order reflects the patients wishes and were consensually agreed upon. Care Teams Senior Linux Engineer Relationship Specialty Start Date End Date Joceline Salter DO [address] [facility] [place] [address] PCP - General Family Medicine 10/14/23 documented as of this encounter
--- OUTSIDE RECORDS SUMMARY | 2024-08-21 00:17 | External Medical Summary | Summary of Care ---
Author Name Unknown Organization [facility] Address [address] [place] [address] Phone [phone] Care Team Providers Care Digital Print Operator Name Role Phone Joceline Salter DO Primary Care Provider +1- [phone] Reason for Visit * Reason Onset Date Comments Other 06/12/2024 Encounter Details Date Type Department Care Team (Late st Contact Info) Description 06/12/2024 Telephone Nephrology, [address] [address] Services, Scheduling [address] [place] [address] Other Allergies Active Allergy Reactions Criticality Noted [...] as of this encounter (statuses as of 06/14/2024) Medications Medication Sig Dispensed Refills Start Date [...] as of this encounter (statuses as of 06/14/2024) Active Problems Problem Noted Date Diagnosed Date [...] as of this encounter (statuses as of 06/14/2024) Resolved Problems Problem Noted Date Diagnosed Date [...] as of this encounter (statuses as of 06/14/2024) Immunizations Name Administration Dates Next Due COVID-19 mRNA, LNP-s, No Pre serve, 2-Dose Series ([employer]) 08/21/2023,05/08/2022,08/30/2021,01/22,12/27/2020 Pneumococcal Conjugate Vacc, 13 Valent (Prevnar) [...] encounter Miscellaneous Notes * Telephone Encounter - Tali Quintana LPN - 06/14/2024 11:54 AM EDT See previous message Per Dr Nesbitt she was returned to patch * Telephone Encounter - Carlito Nesbitt MD [...] irritation) Awoke this AM feeling dizzy unsteady Warriormine like I was in a brain fog" [...] Please give her a call back at [phone] documented in this encounter Plan of Treatment Upcoming Encounters Date Type Department Care Team (Late st Contact Info) Description 10/31/2024 7:30 AM EST Cardiac Studies Cardiac Studies [facility] [address] [place] [address] 02/06/2025 11:00 AM EDT Office Visit Nephrology, Myra Denney [address] [place] [address] Carlito Nesbitt MD [address] [facility] [place] [address] 02/14/2025 8:00 AM EDT Office Visit Family Practice [facility] [place] [address] Joceline Salter DO [address] [place] [address] 04/18/2025 7:20 AM EDT Office Visit Dermatology [facility] [address] [place] [address] Rita Walker PA-C [address] [facility] [place] [address] Health Maintenance Due Date Last Done Comments [...] and were consensually agreed upon. Care Teams Digital Print Operator Relationship Specialty Start Date End Date Joceline Salter DO [address] [facility] [place] [address] PCP - General Family Medicine 10/14/23 documented as of this encounter
--- OUTSIDE RECORDS SUMMARY | 2024-08-21 00:17 | External Medical Summary | Summary of Care ---
Author Name Unknown Organization [facility] Address [address] [place] [address] Phone [phone] Care Team Providers Care Fish Tender Name Role Phone Joceline Salter DO Primary Care Provider +1- [phone] Reason for Visit * Reason Comments NEW PATIENT * Evaluate & Treat - Unlimited Visits (Within 10 days (routine)) - Authorized Specialty Diagnoses / Procedures Referred By Evonne rachel Referred To Contact CONTROL ROOM HELPER - Urogynecology / Gynecology Urology Diagnoses Cystocele with prolapse Joceline Salter DO [address] [place] [address] Referral ID Status Reason Start Date Expiration Date Visits Requested Visits Authorized [id number] Authorized Specialty Services Required [phone] Encounter Details Date Type Department Care Team (Late st Contact Info) Description 08/15/2024 2:55 PM EDT Office Visit Urogynecology [facility] Rush [address] [place] [address] Fran Ojeda MD [address] [place] [address] Nurse Jennifer Rush [address] [place] [address] Cystocele, midline*; Vaginal vault prolapse, posthysterectomy; AMADO [...] mRNA, LNP-s, No Pre serve, 2-Dose Series ([employer]) 08/21/2023,05/08/2022,08/30/2021,01/22,12/27/2020 Pneumococcal Conjugate Vacc, 13 Valent (Prevnar) [...] STENT performed by NICHOLAS VELASCO at [place] [facility] [place] Clavicle fx repair INFORMATION 1997 Nevus [...] Stability Do you currently live in a mcfp or have no steady place to sleep [...] weakness PSYCHIATRIC ROS: denies depression and anxiety Vacuum Caster Documentation: Provider requested banana ripening room supervisor Name of Vacuum Caster: Angelica Mullins Blood pressure 162/92, height 1.6 [...] without lesions. Cervix: surgically absent BIMANUAL EXAM: GRINDER CHIPPER: positive Levator ani muscle strength 2. Tenderness [...] 7:30 AM EST Cardiac Studies Cardiac Studies [facility], [place] [address] [place] [address] 02/06/2025 11:00 AM EDT Office Visit Nephrology, [facility] [address] [facility] [place] [address] Carlito Nesbitt MD [address] [facility] [place] [address] 02/14/2025 8:00 AM EDT Office Visit Family Practice [facility] [address] [place] [address] Joceline Salter DO [address] [place] [address] 04/18/2025 7:20 AM EDT Office Visit Dermatology [facility] [address] [place] [address] Rita Walker PA-C [address] [place] [address] Scheduled Orders Name Type Priority Associated Diagnoses [...] Scheduled Procedures Name Priority Associated Diagnoses Date/Ti wa COMBINED ANTEROPOSTERIOR COLPORRHAPHY, CYSTO Cystocele, midline Vaginal [...] and were consensually agreed upon. Care Teams Fish Tender Relationship Specialty Start Date End Date Joceline Salter DO [address] [facility] [place] [address] PCP - General Family Medicine 10/14/23 documented as of this encounter
--- OUTSIDE RECORDS SUMMARY | 2024-08-21 00:17 | External Medical Summary | Summary of Care ---
Author Name Unknown Organization [facility] Address [address] [place] [address] Phone [phone] Care Team Providers Care Sealer Aircraft Name Role Phone Joceline Salter DO Primary Care Provider [phone]- [phone] Reason for Visit * Reason Onset Date Comments Medication Refill Status Check 07/04/2024 Encounter Details Date Type Department Care Team (Late st Contact Info) Description 07/04/2024 Refill [facility] [address] [place] [address] Joceline Salter DO [address] [place] [address] HTN, goal below 140/90* Allergies Active Allergy Reactions Criticality Noted Date [...] as of this encounter (statuses as of 07/06/2024) Medications Medication Sig Dispensed Refills Start Date [...] as of this encounter (statuses as of 07/06/2024) Active Problems Problem Noted Date Diagnosed Date Vitamin D deficiency 11/13/2022 Mixed hyperlipidemia 11/13/2022 Osteopenia of multiple sites 11/13/2022 Double vision 11/13/2022 History of TIA (transient ischemic attack) 11/13 Overview: ? in 2008. Secondary to hormone. She reports negative workup. History of colon surgery 10/15/2021 Overview: 2010 Overweight (BMI 25.0-29.9) 11/13/2019 Vaginal dryness 11/13/2019 HTN, goal below 140/90 03/30/2016 documented as of this encounter (statuses as of 07/06/2024) Resolved Problems Problem Noted Date Diagnosed Date [...] as of this encounter (statuses as of 07/06/2024) Immunizations Name Administration Dates Next Due COVID-19 mRNA, LNP-s, No Pre serve, 2-Dose Series ([employer]) 08/21/2023,05/08/2022,08/30/2021,01/22,12/27/2020 Pneumococcal Conjugate Vacc, 13 Valent (Prevnar) [...] encounter Miscellaneous Notes * Telephone Encounter - Craig Nguyen PA-C - 07/06/2024 1:43 PM EDT Signed Prescriptions: Disp Refills cloNIDine 0.2 MG/24HR Transdermal Patch We*12 Pat*1 Sig: Place 1 Patch topically on the skin once a week. Authorizing Provider: CRAIG NGUYEN * Telephone Encounter - Sheree Knowles CPhT - 07/05/2024 3:24 PM EDT Patient is requesting a new prescription for clonidine patch please Did you pend patient's preferred pharmacy and medication before forwarding?yes Pharmacy: [facility] Pending Prescriptions: Disp Refills cloNIDine 0.2 MG/24HR Transdermal Patch W*12 Pat*1 Sig: Place 1 Patch topically on the skin once a week. Last Visit: 11/15/2023 (in office), Visit date not found (telemedicine) Next Visit: Visit date not found If no future appointments scheduled, and last appointment is greater than a year ago, please schedule patient for a follow-up appointment Last date the medication was ordered: 04/06/24 Is this request for a controlled substance?No Urine Drug Screen:No results found for this or any previous visit. Patient Phone Numbers Labs: Lab Results Component Value Date/Time CREAT 0.60 04/08/2024 12:00 AM CREAT 0.7 05/17/2020 07:21 AM POTASSIUM 4.0 04/08/2024 12:00 AM POTASSIUM 4.0 05/17/2020 07:21 AM TSH 2.13 08/03/2023 08:00 AM TSH 1.97 05/17/2020 07:21 AM LDL 104 08/03/2023 08:00 AM LDL 104 05/17/2020 07:21 AM LDL NOT APPLICABLE 05/17/2020 07:21 AM LDLCALC 123 07/19/2017 12:00 AM ALT 18 08/03/2023 08:00 AM ALT 14 05/17/2020 07:21 AM HGBA1C 5.5 08/03/2023 08:00 AM * Telephone Encounter - Mona Stewart CCMA - 07/05/2024 7:24 AM EDTPending Prescriptions: Disp Refills cloNIDine 0.2 MG/24HR Transdermal Patch We*12 Pat*1 Sig: Place 1 Patch topically on the skin once a week. * Telephone Encounter - Mona Stewart CCMA - 07/05/2024 7:22 AM EDT Pending Prescriptions: Disp Refills cloNIDine 0.2 MG/24HR Transdermal Patch W*12 Pat*1 Sig: Place 1 Patch topically on the skin once a week. Last Visit: 11/15/2023 (in office), Visit date not found (telemedicine) Next Visit: Visit date not found Last date the medication was ordered: 04/06/24 Patient Active Problem List Diagnosis HTN, goal below 140/90 Overweight (BMI 25.0-29.9) Vaginal dryness History of colon surgery Vitamin D deficiency Mixed hyperlipidemia Osteopenia of multiple sites Double vision History of TIA (transient ischemic attack) Labs: Lab Results Component Value Date/Time CREATININE - [facility] 0.7 02/11/2024 09:01 AM CREATININE - [facility] 0.7 05/17/2020 07:21 AM CREATININE, RANDOM URINE - [facility] 84 08/03/2023 08:00 AM CREATININE-OUTSIDE LAB 0.60 04/08/2024 12:00 AM Lab Results Component Value Date/Time POTASSIUM - [facility] 3.5 02/11/2024 09:01 AM POTASSIUM - [facility] 4.0 05/17/2020 07:21 AM POTASSIUM-OUTSIDE LAB 4.0 04/08/2024 12:00 AM Lab Results Component Value Date/Time TSH - [facility] 2.13 08/03/2023 08:00 AM TSH - [facility] 1.97 05/17/2020 07:21 AM Lab Results Component Value Date/Time LDL (CALCULATED)-OUTSIDE LAB 123 07/19/2017 12:00 AM LDL CHOLESTEROL (CALCULATED) - [facility] 104 08/03/2023 08:00 AM LDL CHOLESTEROL (CALCULATED) - [facility] 63 01/14/2023 07:47 AM LDL CHOLESTEROL (CALCULATED) - [facility] 104 05/17/2020 07:21 AM LDL CHOLESTEROL (CALCULATED) - [facility] 118 05/10/2019 07:40 AM LDL CHOLESTEROL (DIRECT MEASURE) - [facility] NOT APPLICABLE 05/17/2020 07:21 AM LDL CHOLESTEROL (DIRECT MEASURE) - [facility] NOT APPLICABLE 05/10/2019 07:40 AM Lab Results Component Value Date/Time ALT - [facility] 18 08/03/2023 08:00 AM ALT - [facility] 14 05/17/2020 07:21 AM Hemoglobin AIC Results: Lab Results Component Value Date/Time HEMOGLOBIN A1C - [facility] 5.5 08/03/2023 08:00 AM HEMOGLOBIN A1C - [facility] 5.7 (H) 11/13/2022 08:23 AM * Telephone Encounter - Renetta Guzmán - 07/04/2024 4:29 PM EDTPending Prescriptions: Disp Refills cloNIDine 0.2 MG/24HR Transdermal Patch We*12 Pat*1 Sig: Place 1 Patch topically on the skin once a week. documented in this encounter Plan of Treatment Upcoming Encounters Date Type Department Care Team (Late st Contact Info) Description 10/31/2024 7:30 AM EST Cardiac Studies Cardiac Studies [place] [facility]pa Lawler [address] [place] [address] 02/06/2025 11:00 AM EDT Office Visit Myra Rodriguez [address] [place], [place] [address] Carlito Nesbitt MD [address], [place] [address] 02/14/2025 8:00 AM EDT Office Visit Family Practice [facility], [place] [address] [place] [address] Joceline Salter, [address] [place] [address] 04/18/2025 7:20 AM EDT Office Visit Dermatology [facility], [place] [address] [place] [address] Rita Walker PA-C [address] [place] [address] Health Maintenance Due Date Last Done Comments Adult Wellness Visit 2014 Zoster Vaccines (2 of 2) 06/30/2021 05/05/2021 DXA Scan 12/08/2022 12/08/2018, 07/30/2015 Depression Screening 06/23/2024 06/23/2023 COVID-19 Vaccine ( season) 2024 08/21/2023, 05/08/2022, 08/30/2021, Additional history exists Influenza Vaccine (FLU shot) (#1) 2024 07/19/2023, 08/07/2022, 07/31/2021, Additional history exists GFR 04/08/2025 04/08/2024, 0406/2024, 10/04/2023, Additional history exists Albumin/Creatinine Ratio 08/03/2026 [...] as of this encounter Visit Diagnoses Diagnosis HTN, goal below 140/90- Primary Unspecified essential hypertension documented in this encounter Advance Directives * Full Code (Latest Code Status on File) Date Activated Date Inactivated Comments 05/19/2010 11:40 AM 05/21/2010 5:47 PM This order reflects the patients wishes and were consensually agreed upon. Care Teams Sealer Aircraft Relationship Specialty Start Date End Date Joceline Salter DO [address] [facility] [place] [address] PCP - General Family Medicine 10/14/23 documented as of this encounter
--- OUTSIDE RECORDS SUMMARY | 2024-08-21 00:17 | External Medical Summary | Summary of Care ---
Author Name Unknown Organization [facility] Address [address] [place] [address] Phone [phone] Care Team Providers Care Crystallizer Operator Name Role Phone Joceline Salter DO Primary Care Provider [phone]- [phone] Reason for Visit * Reason Comments NEW PATIENT * Evaluate & Treat - Unlimited Visits (Within 10 days (routine)) - Authorized Specialty Diagnoses / Procedures Referred By Evonne rachel Referred To Contact DOCUMENT CONTROL ASSOCIATE - Urogynecology / Gynecology Urology Diagnoses Cystocele with prolapse Joceline Salter DO [address] [place] [address] Referral ID Status Reason Start Date Expiration Date Visits Requested Visits Authorized [id number] Authorized Specialty Services Required [phone] Encounter Details Date Type Department Care Team (Late st Contact Info) Description 08/15/2024 2:55 PM EDT Office Visit Urogynecology [facility] Rush [address] [place] [address] Fran Ojeda MD [address] [place] [address] Nurse Jennifer Rush [address] [place] [address] Cystocele, midline*; Vaginal vault prolapse, posthysterectomy; AMADO [...] as of this encounter (statuses as of 08/16/2024) Medications Medication Sig Dispensed Refills Start Date [...] as of this encounter (statuses as of 08/16/2024) Active Problems Problem Noted Date Diagnosed Date [...] as of this encounter (statuses as of 08/16/2024) Resolved Problems Problem Noted Date Diagnosed Date [...] as of this encounter (statuses as of 08/16/2024) Immunizations Name Administration Dates Next Due COVID-19 mRNA, LNP-s, No Pre serve, 2-Dose Series ([employer]) 08/21/2023,05/08/2022,08/30/2021,01/22,12/27/2020 Pneumococcal Conjugate Vacc, 13 Valent (Prevnar) [...] documented in this encounter Progress Notes * Fran Ojeda MD - 08/16/2024 7:38 AM EDT I have discussed the patient's management with the medical trainee and agree with the note. Please refer to the documented findings and plan of care. This patient's visit today consisted of an evaluation. I was present and confirmed the findings of the history and exam, and PVR bladder scan. Fran Ojeda MD * Fran Ojeda MD - 08/16/2024 7:36 AM EDT I have discussed the patient's management with the medical trainee and agree with the note. Please refer to the documented findings and plan of care. This patient's visit today consisted of an evaluation. I was present and confirmed the findings of the history and exam, and bladder scan PVR. Fran Ojeda MD * Eunice Meyer DO - 08/15/2024 2:55 PM EDT Diya Hawkins [...] URETERAL STENT performed by NICHOLAS VELASCO at [facility] INFORMATION Clavicle fx repair INFORMATION 1997 Nevus sebacceous wendy removal LAP;W/HYSTERECTOMY Hysterectomy Complete PARTIAL REMOVAL OF COLON 12" removed REMOVAL OF APPENDIX Appendectomy REMOVE TONSILS & ADENOIDS, UNDER 12 Tonsillectomy/Adenoids,<12 Y/O REPAIR RECURRENT INGUINAL HERNIA 1995 Inguinal Hernia Repair, Recurrent OB History 2 [...] weakness PSYCHIATRIC ROS: denies depression and anxiety Rigging And Controls Aircraft Mechanic Documentation: Provider requested supervisor paper machine Name of Rigging And Controls Aircraft Mechanic: Angelica Mullins Blood pressure 162/92, height 1.6 [...] without lesions. Cervix: surgically absent BIMANUAL EXAM: MACARONI MAKER: positive Levator ani muscle strength 2. Tenderness [...] 7:30 AM EST Cardiac Studies Cardiac Studies [facility], [place] [address] [facility] [place] [address] 02/06/2025 11:00 AM EDT Office Visit Nephrology, [facility] [address] [place] [address] Carlito Nesbitt MD [address] [place] [address] 02/14/2025 8:00 AM EDT Office Visit Family Practice [facility] [place] [address] [facility] [place] [address] Joceline Salter DO [address] [facility] [place] [address] 04/18/2025 7:20 AM EDT Office Visit Dermatology [facility] [place] [address] [facility] [place] [address] Rita Walker PA-C [address] [place] [address] Scheduled Orders Name Type Priority Associated Diagnoses [...] Scheduled Procedures Name Priority Associated Diagnoses Date/Ti me COMBINED ANTEROPOSTERIOR COLPORRHAPHY, CYSTO Cystocele, midline Vaginal [...] and were consensually agreed upon. Care Teams Crystallizer Operator Relationship Specialty Start Date End Date Joceline Salter DO [address] [facility] [place] [address] PCP - General Family Medicine 10/14/23 documented as of this encounter
--- OUTSIDE RECORDS SUMMARY | 2024-08-21 00:17 | External Medical Summary | Summary of Care ---
Author Name Unknown Organization [facility] Address [address] [place] [address] Phone [phone] Care Team Providers Care Nurse Paralegal Name Role Phone Joceline Salter DO Primary Care Provider +1- [phone] Reason for Visit * Reason Comments NEW PATIENT * Evaluate & Treat - Unlimited Visits (Within 10 days (routine)) - Authorized Specialty Diagnoses / Procedures Referred By Evonne rachel Referred To Contact ELECTRIC MULE DRIVER - Urogynecology / Gynecology Urology Diagnoses Cystocele with prolapse Joceline Salter DO [address] [place] [address] Referral ID Status Reason Start Date Expiration Date Visits Requested Visits Authorized [id number] Authorized Specialty Services Required [phone] Encounter Details Date Type Department Care Team (Late st Contact Info) Description 08/15/2024 2:55 PM EDT Office Visit Urogynecology [facility] Rush [address] [place] [address] Fran Ojeda MD [address] [place] [address] Nurse Jennifer Rush [address] [place] [address] Cystocele, midline*; Vaginal vault prolapse, posthysterectomy; AMADO [...] mRNA, LNP-s, No Pre serve, 2-Dose Series (Going My Way) 08/21/2023,05/08/2022,08/30/2021,01/22,12/27/2020 Pneumococcal Conjugate Vacc, 13 Valent (Prevnar) [...] Notes * Fran Ojeda MD - 08/16/2024 7:36 [...] STENT performed by NICHOLAS VELASCO at [facility] INFORMATION Clavicle fx repair INFORMATION 1997 Nevus [...] Sexual Activity Alcohol use: No Comment: stopped 1980 Drug use: No Sexual activity: Yes control/protection: [...] Stability Do you currently live in a group home or have no steady place to sleep [...] weakness PSYCHIATRIC ROS: denies depression and anxiety Senior Business Development Analyst Documentation: Provider requested merchandise stocker Name of Senior Business Development Analyst: Angelica Mullins Blood pressure 162/92, height 1.6 [...] without lesions. Cervix: surgically absent BIMANUAL EXAM: ICE BAG ASSEMBLER: positive Levator ani muscle strength 2. Tenderness [...] to continue vaginal estrogen cream Eunice Meyer, PGY-2 OBGYN 08/15/2024 2:30 PM I saw [...] 7:30 AM EST Cardiac Studies Cardiac Studies [facility], [place] [address] [place] [address] 02/06/2025 11:00 AM EDT Office Visit Nephrology, [facility] [address] [facility] [address] Carlito Nesbitt MD [address] [place] [address] 02/14/2025 8:00 AM EDT Office Visit Family Practice [facility], [place] [address] [place] [address] Joceline Salter DO [address] [place] [address] 04/18/2025 7:20 AM EDT Office Visit Dermatology [address], [place] [address] [place] [address] Rita Walker PA-C [address] [place] [address] Scheduled Orders Name Type Priority Associated Diagnoses [...] and were consensually agreed upon. Care Teams Nurse Paralegal Relationship Specialty Start Date End Date Joceline Salter DO [address] [place] [address] PCP - General Family Medicine 10/14/23 documented as of this encounter
--- OUTSIDE RECORDS SUMMARY | 2024-08-21 00:18 | External Medical Summary | Summary of Care ---
Author Name Unknown Organization [facility] Address [address] [place] [address] Phone [phone] Care Team Providers Care Professional Bass Fisher Name Role Phone Joceline Salter DO Primary Care Provider +1- [phone] Reason for Visit * Reason Comments Skin Check 1 yr routine skin ex am. Hx: atypical mole. Encounter Details Date Type Department Care Team (Late st Contact Info) Description 04/17/2024 7:20 AM EDT Office Visit Dermatology [facility] [address] [place] [address] Rita Walker PA-C [address] [place] [address] Multiple pigmented nevi*; Diffuse photodamage of skin; History of atypical nevus; Skin exam, screening for cancer Allergies Active Allergy Reactions Criticality Noted Date [...] as of this encounter (statuses as of 04/17/2024) Medications Medication Sig Dispensed Refills Start Date [...] > 160/100 45 Tablet 3 01/31/2024 Active cloNIDine 0.2 MG/24HR Transdermal Patch Weekly (Catapres-Tts- 2)Indications:HTN, goal below 140/90 Place 1 Patch topically on the skin once a week. 12 Patch 1 04/06/2024 Active Baclofen 10 MG Oral Tablet (Lioresal)Indicatio ns:Muscle spasm of back Take 1 Tablet by mouth at bedtime as needed for Muscle spasms. 30 Tablet 2 04/10/2024 Active documented as of this encounter (statuses as of 04/17/2024) Active Problems Problem Noted Date Diagnosed Date [...] as of this encounter (statuses as of 04/17/2024) Resolved Problems Problem Noted Date Diagnosed Date [...] as of this encounter (statuses as of 04/17/2024) Immunizations Name Administration Dates Next Due COVID-19 mRNA, LNP-s, No Pre serve, 2-Dose Series (KeyMe) 08/21/2023,05/08/2022,08/30/2021,01/22,12/27/2020 Pneumococcal Conjugate Vacc, 13 Valent (Prevnar) [...] on file documented as of this encounter Progress Notes * Rita Walker PA-C - 04/17/2024 7:12 AM EDT Nursing Notes: Sofía Melgoza LPN 04/17/24 0735 Signed Patient identified by name and date. Chief Complaint Patient presents with Skin Check 1 yr routine skin exam. Hx: atypical mole. SUBJECTIVE: HPI: Diya Hawkins is a 72 year old female who is an established patient seen for follow-up full skin check. Patient last visit on 04/16/23. 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 Wears long-sleeve shirts and hats while outside sometimes. REVIEW OF SYSTEMS: See HPI- all other findings negative Constitutional: (-) fever, chills, sweats, weight loss Cardiovascular: (-) lower extremity edema Skin: (-) no rash or new or changing moles or skin lesions MEDICA TIONS: Current Outpatient Medications Medication Sig Dispense Refill [...] skin once a week. 12 Patch 1 Baclofen 10 MG Oral Tablet (Lioresal) Take 1 Tablet by mouth at bedtime as needed for Muscle spasms. 30 Tablet 2 No current facility-administered medications for this visit. ALLERG Y: Atorvastatin, Coreg [carvedilol], Estrogens, Hydrochlorothiazide, Indapamide, Lisinopril, Morphine and codeine, Morphine sulfate, Percocet [oxycodone- acetaminophen], and Prozac [fluoxetine] OBJECTIVE: GEN: Healthy, alert, no distress, appears oriented, pleasant and cooperative. PSYCH: Appropriate mood and affect, alert SKIN: Detailed exam of scalp, hair, face including lids and lips, ears, neck, chest, back, abdomen,buttocks, bilateral upper extremities and bilateral lower extremities including the nails and digits was completed and are within normal limits with the following exceptions: 1. Scattered benign appearing lesions over examined skin including scattered benign and relatively monomorphic appearing melanocytic nevi, waxy flesh- colored, greyish brown benign and non-inflamed appearing stuck-on papules and plaques, benign and uniform appearing brown macules and patches in sun exposed areas, bright red benign appearing dome-shaped papules and macules and solar elastosis and evident photodamage of sunexposed skin. 2. Scar L scapula and R temporal scalp ASSESSMENT/PLAN: 1. Multiple benign-appearing nevi - No features concerning for malignancy on exam today. - Continue to monitor with monthly self-skin exams. - Patient counseled on ABCDEs of melanoma. - Discussed and emphasized importance of sun protection including broadband, water-resistant, SPF 30 or greater sunscreen with reapplication q2h or after swimming/excessive perspiration and sun protective attire (wide-brimmed hats, long pants/shirt, sunglasses). - Patient to contact physician for any new or changing lesions or other concerns. 2. Photodamage - The signs and symptoms of skin cancer were reviewed and the patient was advised to practice sun protection and sun avoidance, use daily sunscreen, and perform regular self skin exams. 3. H/o Atypical nevus - No evidence of disease, continue to monitor 4. Routine Skin Examination For Skin Cancer -Educated patient on ABCDE's. -Advised patient that if they notice any of these changes to please call for a follow-up appointment as soon as possible. -Counseled patient on criteria for good sunscreen including SPF 30 or higher, broad spectrum (UVA and UVB) and water resistant (up to 40 to 80 minutes). Advised to reapply sunscreen every 2 hours andafter swimming or profuse sweating. Advised to wear protective clothing when out in the sun including long sleeved shirt, pants, wide-brimmed hat and sunglasses. Informed to seek shade during 10 AM to 4 PM when the sun's rays are the strongest. -Advised to perform routine (at least once a year) skin self-examinations. Advised to contact theirdermatologist immediately if they notice any new or changing skin lesions. Patient alone today. Follow-up: 1 year Photos taken, patient consented to photos taken. Applicable photos (if any) and chart reviewed by Dr. Kin Fox The patient was encouraged to contact me with any further questions or concerns. Rita Walker PA-C 04/17/24 documented in this encounter Nursing Notes * Sofía Melgoza LPN - 04/17/2024 7:35 AM EDT Patient identified by name and date. Chief Complaint Patient presents with Skin Check 1 yr routine skin exam. Hx: atypical mole. documented in this encounter Plan of Treatment Upcoming Encounters Date Type Department Care Team (Late st Contact Info) Description 04/18/2024 8:30 AM EDT Cardiac Studies Cardiac Studies [facility], [place] [address] [place] [address] 05/05/2024 3:00 PM EDT Office Visit NephrologyMyra [address] [facility] [place] [address] Carlito Nesbitt MD [address] [facility] [place] [address] 02/14/2025 8:00 AM EDT Office Visit Family Practice [facility], [place] [address] [place] [address] Joceline Salter DO [address] [place] [address] 04/18/2025 7:20 AM EDT Office Visit Dermatology [facility] [place] [address] [place] [address] Rita Walker PA-C [address] [place] [address] Health Maintenance Due Date Last Done Comments Zoster Vaccines (2 of 2) 06/30/2021 05/05/2021 DXA Scan 12/08/2022 12/08/2018, 07/30/2015 COVID-19 Vaccine ( season) 2023 08/21/2023, 05/08/2022, 08/30/2021, Additional history exists Depression Screening 06/23/2024 06/23/2023 GFR 04/08/2025 04/08/2024, 04/06/2024, 10/04/2023, Additional history exists Albumin/Creatinine Ratio 08/03/2026 023, 11/13/2022, 07/22/2016 DTaP,Tdap,and Td Vaccines (2 - Td or Tdap) 11/13/2029 11/13/2019 Colonoscopy Discontinued 02/16/2018 Colorectal Cancer Screening Discontinued RETIRED - COLONOSCOPY-EVERY 5 YRS AGES 18-100 Discontinued 02/16/2018 Pneumococcal Vaccine: 65+ Years Completed 08/04/2018, 07/28/2016 Influenza Vaccine (FLU shot) Completed 07/19/2023, 08/07/2022, 07/31/2021, Additional history exists Cologuard Discontinued Fecal Occult Blood Test Discontinued GARDASIL-HPV IMMUNIZATION SERIES Aged Out No longer eligible based on patient's age to complete this topic Hepatitis B Aged Out No longer eligi ble based on patient's age to complete this topic MENINGOCOCCAL (MENACTRA/MENVEO) Aged Out No longer eligible based on patient's age to complete this topic Sigmoidoscopy Discontinued documented as of this encounter Medical Devices Not on filedocumented as of this encounter Procedures Procedure Name Priority Date/Time Associated Diagnosis Comments DERM EXAM - DERM (IMAGES ONLY, NO REPORT) Routine 04/17/2024 7:13 AM EDT Multiple pigmented nevi Diffuse photodamage of skin History of atypical nevus Skin exam, screening for cancer documented in this encounter Results * DERM EXAM - DERM (IMAGES ONLY, NO REPORT) (04/17/2024 7:13 AM EDT) Narrative Scheduling, Silent - 04/17/2024 7:13 AM EDT This is an imaging study not interpreted or resulted by a [facility] contracted radiologist. Rita Walker PA-C RADIOLOGY ( [facility]) documented in this encounter Visit Diagnoses Diagnosis Multiple pigmented nevi- Primary Benign neoplasm of skin, site unspecified Diffuse photodamage of skin Other chronic dermatitis due to solar radiation History of atypical nevus Personal history of diseases of skin and subcutaneous tissue Skin exam, screening for cancer Screening for malignant neoplasm of the skin documented in this encounter Advance Directives * Full Code (Latest Code Status on File) Date Activated Date Inactivated Comments 05/19/2010 11:40 AM 05/21/2010 5:47 PM This order reflects the patients wishes and were consensually agreed upon. Care Teams Professional Bass Fisher Relationship Specialty Start Date End Date Joceline Salter DO [address] [facility] [place] [address] PCP - General Family Medicine 10/14/23 documented as of this encounter
--- OUTSIDE RECORDS SUMMARY | 2024-08-21 00:18 | External Medical Summary | Summary of Care ---
Author Name Unknown Organization [facility] Address [address] [place] [address] Phone [phone] Care Team Providers Care Spooler Name Role Phone Joceline Salter DO Primary Care Provider +1- [phone] Reason for Visit * Reason Onset Date Comments Other 06/12/2024 Encounter Details Date Type Department Care Team (Late st Contact Info) Description 06/12/2024 Telephone Nephrology, [address] [address] Services, Scheduling [address] [place] [address] Other Allergies Active Allergy Reactions Criticality Noted [...] as of this encounter (statuses as of 06/12/2024) Medications Medication Sig Dispensed Refills Start Date [...] as of this encounter (statuses as of 06/12/2024) Active Problems Problem Noted Date Diagnosed Date [...] as of this encounter (statuses as of 06/12/2024) Resolved Problems Problem Noted Date Diagnosed Date [...] as of this encounter (statuses as of 06/12/2024) Immunizations Name Administration Dates Next Due COVID-19 mRNA, LNP-s, No Pre serve, 2-Dose Series (Liveyearbook) 08/21/2023,05/08/2022,08/30/2021,01/22,12/27/2020 Pneumococcal Conjugate Vacc, 13 Valent (Prevnar) [...] encounter Miscellaneous Notes * Telephone Encounter - Etelvina Loving OSA - 06/12/2024 11:21 AM EDT Good morning, Pt on the line, requesting a call back from Dr. Nesbitt sometime today, she is having a reaction toa medication. Please give her a call back at [phone] documented in this encounter Plan of Treatment Upcoming Encounters Date Type Department Care Team (Late st Contact Info) Description 10/31/2024 7:30 AM EST Cardiac Studies Cardiac Studies [place] [facility] [address] [place] [id number] 02/06/2025 11:00 AM EDT Office Visit [facility]Myra [address] [facility] [place] [address] Carlito Nesbitt MD [address] [facility] [place] [address] 02/14/2025 8:00 AM EDT Office Visit Family Practice [address], [place] [address] [place] [address] Joceline Salter, [address] [place] [address] 04/18/2025 7:20 AM EDT Office Visit Dermatology [address], [place] [address] [place] [address] Rita Walker PA-C [address] [place] [address] Health Maintenance Due Date Last Done Comments Adult Wellness Visit 2014 Zoster Vaccines (2 of 2) 06/30/2021 05/05/2021 DXA Scan 12/08/2022 12/08/2018, 07/30/2015 COVID-19 Vaccine (2022- season) 2023 08/21/2023, 05/08/2022, 08/30/2021, Additional history [...] and were consensually agreed upon. Care Teams Spooler Relationship Specialty Start Date End Date Joceline Salter DO [address] [facility] [place] [address] PCP - General Family Medicine 10/14/23 documented as of this encounter
--- OUTSIDE RECORDS SUMMARY | 2024-08-21 00:18 | External Medical Summary | Summary of Care ---
Author Name Unknown Organization [facility] Address [address] [place] [address] Phone [phone] Care Team Providers Care Quantitative Associate Name Role Phone Joceline Salter DO Primary Care Provider +1- [phone] Reason for Visit * Reason Onset Date Comments Other 06/12/2024 Encounter Details Date Type Department Care Team (Late st Contact Info) Description 06/12/2024 Telephone Nephrology, [address] [address] Services, Scheduling [address] [place] [address] Other Allergies Active Allergy Reactions Criticality Noted [...] mRNA, LNP-s, No Pre serve, 2-Dose Series ([place]) 08/21/2023,05/08/2022,08/30/2021,01/22,12/27/2020 Pneumococcal Conjugate Vacc, 13 Valent (Prevnar) [...] irritation) Awoke this AM feeling dizzy unsteady [place] like I was in a brain fog" [...] Please give her a call back at [phone] documented in this encounter Plan of Treatment Upcoming Encounters Date Type Department Care Team (Late st Contact Info) Description 10/31/2024 7:30 AM EST Cardiac Studies Cardiac Studies [facility], [place] [address] [place] [address] 02/06/2025 11:00 AM EDT Office Visit Nephrology, [place] [address] [place] [address] Carlito Nesbitt MD [address] [facility] [place] [address] 02/14/2025 8:00 AM EDT Office Visit Family Practice [facility] [place] [address] [place] [address] Joceline Salter DO [address] [place] [address] 04/18/2025 7:20 AM EDT Office Visit Dermatology [facility], [place] [address] [place] [address] Rita Walker PA-C [address] [place] [address] Health Maintenance Due Date Last Done Comments [...] and were consensually agreed upon. Care Teams Quantitative Associate Relationship Specialty Start Date End Date Joceline Salter DO [address] [facility] [place] [address] PCP - General Family Medicine 10/14/23 documented as of this encounter
--- OUTSIDE RECORDS SUMMARY | 2024-08-21 00:18 | External Medical Summary | Summary of Care ---
Author Name Unknown Organization [facility] Address [address] [place] [address] Phone [phone] Care Team Providers Care Sociology Teacher Name Role Phone Joceline Salter DO Primary Care Provider +1- [phone] Reason for Visit * Reason Onset Date Comments Appointment 04/21/2024 pt called to [facility] her annual with [employer] Cristian Blum Encounter Details Date Type Department Care Team (Late st Contact Info) Description 04/21/2024 Telephone Dermatology [facility] [address] [place] [address] Services, Scheduling [address] [place] [address] Appointment (pt called to schedule her gayle... Allergies Active Allergy Reactions Criticality Noted Date [...] as of this encounter (statuses as of 04/24/2024) Medications Medication Sig Dispensed Refills Start Date [...] as of this encounter (statuses as of 04/24/2024) Active Problems Problem Noted Date Diagnosed Date [...] as of this encounter (statuses as of 04/24/2024) Resolved Problems Problem Noted Date Diagnosed Date [...] as of this encounter (statuses as of 04/24/2024) Immunizations Name Administration Dates Next Due COVID-19 mRNA, LNP-s, No Pre serve, 2-Dose Series (Voice2Insight) 08/21/2023,05/08/2022,08/30/2021,01/22,12/27/2020 Pneumococcal Conjugate Vacc, 13 Valent (Prevnar) [...] encounter Miscellaneous Notes * Telephone Encounter - Breezy Chow OSA - 04/24/2024 7:47 AM EDT Patient has been scheduled with Niecy Clarke. Currently no appts with Dr. Harris. Wednesday Arrive by 1:45 PM Appt at 2:00 PM (30 min) * Telephone Encounter - Bobby Mulligan OSA - 04/21/2024 4:52 PM EDT Neto, documented in this encounter Plan of Treatment Upcoming Encounters Date Type Department Care Team (Late st Contact Info) Description 05/05/2024 3:00 PM EDT Office Visit Nephrology, [place] [address] [facility] [place] [address] Carlito Nesbitt MD [address] [facility] [place] [place] [address] 05/31/2024 2:00 PM EDT Office Visit Cardiology, [facility] [address] [facility] [place] [address] Niecy Clarke PA-C [address] [facility] [place] [address] 10/31/2024 7:30 AM EST Cardiac Studies Cardiac Studies [facility], [place] [address] [facility] [place] [address] 02/14/2025 8:00 AM EDT Office Visit Family Practice [address], [place] [address] [place] [address] Joceline Salter, [address] [place] [address] 04/18/2025 7:20 AM EDT Office Visit Dermatology [address], [place] [address] [place] [address] Rita Walker PA-C [address] [place] [address] Health Maintenance Due Date Last Done Comments [...] and were consensually agreed upon. Care Teams Sociology Teacher Relationship Specialty Start Date End Date Joceline Salter DO [address] [facility] [place] [address] PCP - General Family Medicine 10/14/23 documented as of this encounter
--- OUTSIDE RECORDS SUMMARY | 2024-08-21 00:18 | External Medical Summary | Summary of Care ---
Author Name Unknown Organization [facility] Address [address] [place] [address] Phone [phone] Care Team Providers Care Masonry Teacher Name Role Phone Joceline Salter DO Primary Care Provider +1- [phone] Reason for Visit * Reason Onset Date Comments Other 06/12/2024 Encounter Details Date Type Department Care Team (Late st Contact Info) Description 06/12/2024 Telephone Nephrology, [address] [address] Services, Scheduling [address] [place] [address] Other Allergies Active Allergy Reactions Criticality Noted [...] mRNA, LNP-s, No Pre serve, 2-Dose Series (UpMo) 08/21/2023,05/08/2022,08/30/2021,01/22,12/27/2020 Pneumococcal Conjugate Vacc, 13 Valent (Prevnar) [...] Please give her a call back at [phone] documented in this encounter Plan of Treatment Upcoming Encounters Date Type Department Care Team (Late st Contact Info) Description 10/31/2024 7:30 AM EST Cardiac Studies Cardiac Studies [place] [address] [place] [id number] 02/06/2025 11:00 AM EDT Office Visit [facility]Myra [address] [facility] [facility] [address] Carlito Nesbitt MD [address] [facility] [place] [address] 02/14/2025 8:00 AM EDT Office Visit Family Practice [address], [place] [address] [place] [address] Joceline Salter, [address] [place] [address] 04/18/2025 7:20 AM EDT Office Visit Dermatology [address], [place] [address] [place] [address] Rita Walker PA-C [address] [place] [address] Health Maintenance Due Date Last Done Comments [...] and were consensually agreed upon. Care Teams Masonry Teacher Relationship Specialty Start Date End Date Joceline Salter DO [address] [facility] [place] [address] PCP - General Family Medicine 10/14/23 documented as of this encounter
--- OUTSIDE RECORDS SUMMARY | 2024-08-21 00:18 | External Medical Summary | Summary of Care ---
Author Name Unknown Organization [facility] Address [address] [place] [address] Phone [phone] Care Team Providers Care Graphic Manager Name Role Phone Joceline Salter DO Primary Care Provider +1- [phone] Reason for Visit * Reason Comments Hypertension Encounter Details Date Type Department Care Team (Late st Contact Info) Description 06/01/2024 1:40 PM EDT Office Visit Nephrology, [facility] [address] [place] [address] Carlito Nesbitt MD [address] [place] [address] HTN, goal below 130/80* Allergies Active Allergy Reactions Criticality Noted Date [...] as of this encounter (statuses as of 06/01/2024) Medications Medication Sig Dispensed Refills Start Date [...] once a week. 12 Patch 1 04/06/2024 Discontinue d(Discharge d) documented as of this encounter (statuses as of 06/01/2024) Active Problems Problem Noted Date Diagnosed Date [...] as of this encounter (statuses as of 06/01/2024) Resolved Problems Problem Noted Date Diagnosed Date [...] as of this encounter (statuses as of 06/01/2024) Immunizations Name Administration Dates Next Due COVID-19 mRNA, LNP-s, No Pre serve, 2-Dose Series ([id number]) 08/21/2023,05/08/2022,08/30/2021,01/22,12/27/2020 Pneumococcal Conjugate Vacc, 13 Valent (Prevnar) [...] Sign Reading Time Taken Comments Blood Pressure 146/91 06/01/2024 1:43 PM EDT Pulse 73 06/01/2024 1:43 PM EDT Temperature 36.4 C (97.6 F) 06/01/2024 1:40 PM ED T Respiratory Rate 18 06/01/2024 1:40 PM EDT Oxygen Saturation 94% 06/01/2024 1:40 PM EDT Inhaled Oxygen Concentration - - Weight 67.6 kg (149 lb) 06/01/2024 1:40 PM EDT Height - - Body Mass Index 25.98 03/06/2024 10:28 AM EDT documented in this encounter Progress Notes * Carlito Nesbitt MD - 06/01/2024 1:51 PM EDT Chief complaint------ patient with severe hypertension with extreme problem with medication tolerance transferring care to me. She has seen Nephrology in [facility] September 2023. HPI: Diya has been having multiple side effects from all BP medications that she has taken in the past.She has tried lisinopril, coreg, HCTZ, indapamide, losartan and amlodipine. Sometimes she can tolerate the medications for weeks to months, but will have side effects and will sometimes experience elevated BP despite taking the medications. Medications will initially lower her BP. Has experienced vision changes, tingling in limbs, muscle discomfort and headaches. Has had recently labs including BMP and 24 urine. Has had recent US and MRI. During that visit she was prescribed clonidine patch which she is taking currently. She feels all her family members have significant problem with tolerating blood pressure medications Complaining of lot of anxiety stress specially with her 's health--he was on dialysis and iscurrently status post kidney transplant but is struggling because of lack of vision. Renovascular scan and hormonal workup for hypertension already done and normal. Has trouble with skin tearing from Clonidine patch and wants to change to pills. Taking Chlorthalidone as needed and sometime half tab only. Past Medical History: Diagnosis Date Diverticulitis of colon 05/14/2010 Diverticulitis of colon 05/14/2010 Patient Active Problem List Diagnosis HTN, goal below 140/90 Overweight (BMI 25.0-29.9) Vaginal dryness History of colon surgery Vitamin D deficiency Mixed hyperlipidemia Osteopenia of multiple sites Double vision History of TIA (transient ischemic attack) REVIEW OF SYSTEMS: Constitutional: (-) fever chills sweats or weight loss Eyes: (+) vision changes with elevated BP Cardiovascular: (-) negative: no chest pain, dyspnea, syncope, or palpitations Pulmonary: (-) negative: no cough, wheezing, or shortness of breath Extremities: (-) edema, +tingling sensation at times Psychiatry: (+) anxious and stressed All other systems were reviewed and were negative. Current Outpatient Medications Medication Sig Dispense Refill B-12 [address] under the tongue. Mometasone Furoate 0.1 % External Solution (Elocon) [...] in the morning.) 30 Tablet 5 cloNIDine 0.2 MG/24HR Transdermal Patch Weekly (Catapres-Tts- 2) Place 1 Patch topically on the skin once a week. 12 Patch 1 IMODIUM A-D 2 MG PO TABS Take by mouth as needed. OneTouch Verio In Vitro Strip (Glucose Blood) Use up to 4 times a day for hypoglycemia 100 Strip 11 OneTouch Verio w/Device Kit Use up to 4 times a day E11.9 1 Kit 0 cloNIDine HCl 0.1 MG Oral Tablet (Catapres) Take 1 tab as needed maximal three times daily if BP > 160/100 45 Tablet 3 Baclofen 10 MG Oral Tablet (Lioresal) Take 1 Tablet by mouth at bedtime as needed for Muscle spasms. (Patient not taking: Reported on 06/01/2024) 30 Tablet 2 No current facility-administered medications for this visit. Review of patient's allergies indicates: Allergen Reactions Atorvastatin Joint pain Coreg [Carvedilol] Psych complications Estrogens Hydrochlorothiazide Other (Please comment) Fatigue,visual problems,muscle weakness, Indapamide Increased BP, agitation, shaky Lisinopril Other (Please comment) Visual problems, muscle cramps, Morphine And Codeine Rash Morphine Sulfate Nausea and vomiting Percocet [Oxycodone-Acetaminophen] Hallucinations Prozac [Fluoxetine] Other (Please comment) Chest pain and difficulty breathing Social History Socioeconomic History Marital status: Spouse [...] Stability Do you currently live in a retirement or have no steady place to sleep [...] - for ages0-17 years): Not on file Family History Problem Relation Name Age of Onset Lymphoma Mother Hypertension Mother Heart disease Father Stroke Father 89 Diabetes Brother 1/2 paternal 80 Breast Cancer Aunt (Unspecified) maternal Cancer Uncle (Unspecified) maternal Diabetes Brother 69 Hypertension Sister Ludmila Scoliosis Sister Ludmila Family Status Relation Status Mo Fa Bro MGMA MGFA PGMA PGFA AUNT UNCLE Bro Sis Alive Won Alive Won Alive PHYSICAL EXAMINATION: Filed Vitals: 06/01/24 1340 06/01/24 1343 BP: 142/91 146/91 Pulse: 71 73 Resp: 18 Temp: 36.4 C (97.6 F) SpO2: 94% Weight: 67.6 kg (149 lb) GENERAL: alert, healthy, and no distress LUNGS: normal respiratory rate and rhythm, lungs clear to auscultation HEART: regular rate & rhythm, no murmur, and no gallops ABDOMEN: abdomen soft and non-tender EXTREMITIES: no edema LABS: Lab Results Component Value Date/Time CREATININE - [facility] 0.7 02/11/2024 09:01 AM CREATININE - [facility] 0.6 10/04/2023 08:26 AM CREATININE - [facility] 0.7 08/03/2023 08:00 AM CREATININE - [facility] 0.6 06/11/2023 07:45 AM CREATININE - [facility] 0.6 05/04/2023 11:41 AM CREATININE - [facility] 0.6 01/14/2023 07:47 AM CREATININE - [facility] 0.7 11/13/2022 08:23 AM CREATININE - [facility] 0.7 04/29/2022 07:48 AM CREATININE - [facility] 0.7 10/15/2021 10:44 AM CREATININE - [facility] 0.7 05/12/2021 10:25 AM CREATININE - [facility] 0.7 05/17/2020 07:21 AM CREATININE - [facility] 0.7 05/10/2019 07:40 AM CREATININE - [facility] 0.6 05/12/2018 10:04 AM CREATININE - [facility] 0.7 12/24/2017 08:35 AM CREATININE - [facility] 0.7 08/02/2017 08:02 AM CREATININE - [facility] 0.7 03/30/2016 08:43 AM CREATININE - [facility] 0.5 (L) 05/21/2010 06:30 AM CREATININE - [facility] 0.5 (L) 05/20/2010 06:10 AM CREATININE - [facility] RESULTS RECHECKED 05/20/2010 06:10 AM CREATININE - [facility] 0.6 (L) 05/12/2010 10:34 AM CREATININE, RANDOM URINE - [facility] 84 08/03/2023 08:00 AM CREATININE, RANDOM URINE - [facility] 61 11/13/2022 08:23 AM CREATININE-OUTSIDE LAB 0.60 04/08/2024 12:00 AM CREATININE-OUTSIDE LAB 0.60 06/11/2023 12:00 AM CREATININE-OUTSIDE LAB 0.69 07/19/2017 12:00 AM CREATININE-OUTSIDE LAB 0.63 05/01/2016 12:00 AM Lab Results Component Value Date/Time BUN - [facility] 13 02/11/2024 09:01 AM BUN - [facility] 14 10/04/2023 08:26 AM BUN - [facility] 11 08/03/2023 08:00 AM BUN - [facility] 10 06/11/2023 07:45 AM BUN - [facility] 13 05/04/2023 11:41 AM BUN - [facility] 11 01/14/2023 07:47 AM BUN - [facility] 12 11/13/2022 08:23 AM BUN - [facility] 15 04/29/2022 07:48 AM BUN - [facility] 14 10/15/2021 10:44 AM BUN - [facility] 12 05/12/2021 10:25 AM BUN - [facility] 11 05/17/2020 07:21 AM BUN - [facility] 16 05/10/2019 07:40 AM BUN - [facility] 11 05/12/2018 10:04 AM BUN - [facility] 12 12/24/2017 08:35 AM BUN - [facility] 14 08/02/2017 08:02 AM BUN - [facility] 18 03/30/2016 08:43 AM BUN - [facility] 9 05/21/2010 06:30 AM BUN - [facility] 8 05/20/2010 06:10 AM BUN - [facility] RESULTS RECHECKED 05/20/2010 06:10 AM BUN - [facility] 10 05/12/2010 10:34 AM Lab Results Component Value Date/Time SODIUM - [facility] 137 02/11/2024 09:01 AM SODIUM - [facility] 140 10/04/2023 08:26 AM SODIUM - [facility] 143 08/03/2023 08:00 AM SODIUM - [facility] 143 06/11/2023 07:45 AM SODIUM - [facility] 137 05/04/2023 11:41 AM SODIUM - [facility] 141 05/17/2020 07:21 AM SODIUM - [facility] 141 05/10/2019 07:40 AM SODIUM - [facility] 139 05/12/2018 10:04 AM SODIUM - [facility] 144 12/24/2017 08:35 AM SODIUM - [facility] 141 08/02/2017 08:02 AM Lab Results Component Value Date/Time POTASSIUM - [facility] 3.5 02/11/2024 09:01 AM POTASSIUM - [facility] 4.0 10/04/2023 08:26 AM POTASSIUM - [facility] 4.4 08/03/2023 08:00 AM POTASSIUM - [facility] 4.5 06/11/2023 07:45 AM POTASSIUM - [facility] 4.0 05/04/2023 11:41 AM POTASSIUM - [facility] 4.1 01/14/2023 07:47 AM POTASSIUM - [facility] 3.9 11/13/2022 08:23 AM POTASSIUM - [facility] 4.2 04/29/2022 07:48 AM POTASSIUM - [facility] 4.1 10/15/2021 10:44 AM POTASSIUM - [facility] 4.2 05/12/2021 10:25 AM POTASSIUM - [facility] 4.0 05/17/2020 07:21 AM POTASSIUM - [facility] 4.3 05/10/2019 07:40 AM POTASSIUM - [facility] 3.5 05/12/2018 10:04 AM POTASSIUM - [facility] 4.2 12/24/2017 08:35 AM POTASSIUM - [facility] 4.1 08/02/2017 08:02 AM POTASSIUM - [facility] 4.6 03/30/2016 08:43 AM POTASSIUM - [facility] 3.5 05/21/2010 06:30 AM POTASSIUM - [facility] 3.8 05/20/2010 06:10 AM POTASSIUM - [facility] RESULTS RECHECKED 05/20/2010 06:10 AM POTASSIUM - [facility] 3.5 05/12/2010 10:34 AM POTASSIUM-OUTSIDE LAB 4.0 04/08/2024 12:00 AM POTASSIUM-OUTSIDE LAB 3.9 06/11/2023 12:00 AM POTASSIUM-OUTSIDE LAB 4.5 07/19/2017 12:00 AM POTASSIUM-OUTSIDE LAB 3.6 05/01/2016 12:00 AM Lab Results Component Value Date/Time CHLORIDE - [facility] 96 (L) 02/11/2024 09:01 AM CHLORIDE - [facility] 99 10/04/2023 08:26 AM CHLORIDE - [facility] 104 08/03/2023 08:00 AM CHLORIDE - [facility] 102 05/17/2020 07:21 AM CHLORIDE - [facility] 101 05/10/2019 07:40 AM CHLORIDE - [facility] 97 (L) 05/12/2018 10:04 AM Lab Results Component Value Date/Time CO2 - [facility] 30 02/11/2024 09:01 AM CO2 - [facility] 29 10/04/2023 08:26 AM CO2 - [facility] 28 08/03/2023 08:00 AM CO2 - [facility] 28 05/17/2020 07:21 AM CO2 - [facility] 32 05/10/2019 07:40 AM CO2 - [facility] 32 05/12/2018 10:04 AM Lab Results Component Value Date/Time CALCIUM - [facility] 9.6 02/11/2024 09:01 AM CALCIUM - [facility] 9.6 10/04/2023 08:26 AM CALCIUM - [facility] 9.5 08/03/2023 08:00 AM CALCIUM - [facility] 9.3 05/17/2020 07:21 AM CALCIUM - [facility] 9.7 05/10/2019 07:40 AM CALCIUM - [facility] 9.5 05/12/2018 10:04 AM Lab Results Component Value Date/Time HGB 14.2 04/08/2024 12:00 AM HGB 14.6 08/03/2023 08:00 AM HGB 15.1 06/11/2023 12:00 AM HGB 14.3 05/04/2023 11:41 AM HGB 15.0 11/13/2022 08:23 AM HGB 13.8 05/17/2020 07:21 AM HGB 14.6 05/10/2019 07:40 AM HGB 14.5 12/24/2017 08:35 AM No results found for: "PLATELET" ASSESSMENT AND PLAN HTN, goal below 130/80 (Primary) Difficult to control hypertension because of significant side-effects she gets with most of the blood pressure medications. She has tried many different agents and has had significant and varied problems related with that. Renovascular scan already done and normal. Hormonal workup for hypotension already done and normal. Does not have proteinuria. Despite high blood pressure she really does not have much end-organ damage as of now. She looks healthy and is able to do significant amount of exercise including walking for miles. Currently taking clonidine patch 0.2 mcg. We had a lot of discussion about the issue with blood pressure. We will keep trying to find a regimen that she can tolerate. Also suggested to take clonidine 0.1 mg tablet if her blood pressure gets more than 160 x 100. Check blood pressure mainly in the morning. She has a blood pressure machine and does check blood pressure regularly and keeps a log. - cloNIDine HCl 0.1 MG Oral Tablet (Catapres); Take 1 tab as needed maximal three times daily if BP > 160/100 As per patient request will stop Clonidine patch. Instead use Clonidine 0.3 bid as baseline and extra 0.1 as needed for SBP > 160 Reminded her again to take at least 1/2 tab daily of Chlorthalidone Follow Up: Return in about 6 months (around 12/02/2024) for Clinic Visit. | For: Clinic Visit Carlito Nesbitt MD documented in this encounter Nursing Notes * Yadira Main RN - 06/01/2024 1:42 PM EDT Follow up visit today. Only taking Chlorthalidone as needed and not daily. Does monitor readings athome. documented in this encounter Plan of Treatment Upcoming Encounters Date Type Department Care Team (Late st Contact Info) Description 10/31/2024 7:30 AM EST Cardiac Studies Cardiac Studies [address], [place] [address] [place] [address] 02/06/2025 11:00 AM EDT Office Visit Nephrology, [facility] [address] [place] [address] Carlito Nesbitt MD [address] [facility] [place], [place] [address] 02/14/2025 8:00 AM EDT Office Visit Family Practice [address], [place] [address] [place] [address] Joceline Salter DO [address] [place] [address] 04/18/2025 7:20 AM EDT Office Visit Dermatology [address], [place] [address] [place] [address] Rita Walker PA-C [address] [place] [address] Health Maintenance Due Date Last Done Comments [...] encounter Visit Diagnoses Diagnosis HTN, goal below 130/80- Primary Unspecified essential hypertension documented in this encounter Advance Directives * Full Code (Latest Code Status on File) Date Activated Date Inactivated Comments 05/19/2010 11:40 AM 05/21/2010 5:47 PM This order reflects the patients wishes and were consensually agreed upon. Care Teams Graphic Manager Relationship Specialty Start Date End Date Joceline Salter DO [address] [facility] [place] [address] PCP - General Family Medicine 10/14/23 documented as of this encounter
--- OUTSIDE RECORDS SUMMARY | 2024-08-21 00:18 | External Medical Summary | Summary of Care ---
Author Name Unknown Organization [facility] Address [address] [place] [address] Phone [phone] Care Team Providers Care Fuller Brush Worker Name Role Phone Joceline Salter DO Primary Care Provider +1- [phone] Reason for Visit * Reason Onset Date Comments Appointment 05/02/2024 Encounter Details Date Type Department Care Team (Late st Contact Info) Description 05/02/2024 Telephone Nephrology, [facility] [address] [place] [address] Carlito Nesbitt MD 200 [facility] [place] [address] Appointment Allergies Active Allergy Reactions Criticality Noted Date [...] as of this encounter (statuses as of 05/02/2024) Medications Medication Sig Dispensed Refills Start Date [...] as of this encounter (statuses as of 05/02/2024) Active Problems Problem Noted Date Diagnosed Date [...] as of this encounter (statuses as of 05/02/2024) Resolved Problems Problem Noted Date Diagnosed Date [...] as of this encounter (statuses as of 05/02/2024) Immunizations Name Administration Dates Next Due COVID-19 mRNA, LNP-s, No Pre serve, 2-Dose Series ([employer]) 08/21/2023,05/08/2022,08/30/2021,01/22,12/27/2020 Pneumococcal Conjugate Vacc, 13 Valent (Prevnar) [...] encounter Miscellaneous Notes * Telephone Encounter - Yadira Main RN - 05/02/2024 1:19 PM EDT Please reschedule pt from 05/05/24. documented in this encounter Plan of Treatment Upcoming Encounters Date Type Department Care Team (Late st Contact Info) Description 05/05/2024 3:00 PM EDT Office Visit [facility]My[facility] [address] [place] [address] Carlito Nesbitt MD [address] [place] [address] 05/31/2024 2:00 PM EDT Office Visit Cardiology, [facility] [address] [facility] [place] [address] Niecy Clarke PA-C [address] [facility] [place] [address] 06/01/2024 1:40 PM EDT Office Visit Nephrology, [facility] [address] [facility] [place] [address] Carlito Nesbitt MD 200 [facility] [place] [address] 10/31/2024 7:30 AM EST Cardiac Studies Cardiac Studies [address] [place] [address] 02/14/2025 8:00 AM EDT Office Visit Family Practice [address] [place] [address] Joceline Salter DO [address] [place] [address] 04/18/2025 7:20 AM EDT Office Visit Dermatology [address] [place] [address] Rita Walker PA-C [address] [place] [address] Health Maintenance Due Date Last Done Comments [...] and were consensually agreed upon. Care Teams Fuller Brush Worker Relationship Specialty Start Date End Date Joceline Salter DO [address] [facility] [place] [address] PCP - General Family Medicine 10/14/23 documented as of this encounter
--- OUTSIDE RECORDS SUMMARY | 2024-08-21 00:18 | External Medical Summary | Summary of Care ---
Author Name Unknown Organization [facility] Address [address] [place] [address] Phone [phone] Care Team Providers Care Note Specialist Name Role Phone Joceline Salter DO Primary Care Provider +1- [phone] Encounter Details Date Type Department Care Team (Latest Contact Info) Description 04/17/2024 7:13 AM EDT - 04/17/2024 11:59 PM EDT Hospital Encounter Radiology Film File [address] [place] [address] Arrived Discharge Disposition: Home - Self Care Allergies Active Allergy Reactions Criticality Noted Date [...] as of this encounter (statuses as of 04/18/2024) Medications Medication Sig Dispensed Refills Start Date [...] as of this encounter (statuses as of 04/18/2024) Active Problems Problem Noted Date Diagnosed Date [...] as of this encounter (statuses as of 04/18/2024) Resolved Problems Problem Noted Date Diagnosed Date [...] as of this encounter (statuses as of 04/18/2024) Immunizations Name Administration Dates Next Due COVID-19 mRNA, LNP-s, No Pre serve, 2-Dose Series ([employer]) 08/21/2023,05/08/2022,08/30/2021,01/22,12/27/2020 Pneumococcal Conjugate Vacc, 13 Valent (Prevnar) [...] on file documented as of this encounter Plan of Treatment Upcoming Encounters Date Type Department Care Team (Late st Contact Info) Description 05/05/2024 3:00 PM EDT Office Visit Nephrology, [facility] [address] [place] [address] Carlito Nesbitt MD [address] [facility] [place] [id number] 02/14/2025 8:00 AM EDT Office Visit Family Practice [facility] [address] [facility] [place] [address] Joceline Salter DO [address] [facility] [place] [id number] 04/18/2025 7:20 AM EDT Office Visit Dermatology [facility] [address] [facility] [place] [address] Rita Walker PA-C [address] [place] [id number] Health Maintenance Due Date Last Done Comments Zoster Vaccines (2 of 2) 06/30/2021 05/05/2021 DXA Scan 12/08/2022 12/08/2018, 07/30/2015 COVID-19 Vaccine ( season) 2023 08/21/2023, 05/08/2022, 08/30/2021, Additional history exists Depression Screening 06/23/2024 06/23/2023 GFR 04/08/2025 04/08/2024, 01/23, 10/04/2023, Additional history [...] interpreted or resulted by a [facility] or [facility] radiologist. Rita Walker PA-C RADIOLOGY ( RAD GENERAL) documented in this encounter Advance Directives * Full Code (Latest Code Status on File) Date Activated Date Inactivated Comments 05/19/2010 11:40 AM 05/21/2010 5:47 PM This order reflects the patients wishes and were consensually agreed upon. Care Teams Note Specialist Relationship Specialty Start Date End Date Joceline Salter DO [address] [facility] [place] [address] PCP - General Family Medicine 10/14/23 documented as of this encounter
--- OUTSIDE RECORDS SUMMARY | 2024-08-21 00:18 | External Medical Summary | Summary of Care ---
Author Name Unknown Organization [facility] Address [address] [place] [address] Phone [phone] Care Team Providers Care Kiln Stoker Name Role Phone Joceline Salter DO Primary Care Provider +1- [phone] Encounter Details Date Type Department Care Team (Late st Contact Info) Description 04/08/2024 Result Scan Unspecified Department <No scans attached> Allergies Active Allergy Reactions Criticality Noted Date [...] as of this encounter (statuses as of 05/25/2024) Medications Medication Sig Dispensed Refills Start Date [...] a week. 12 Patch 1 04/06/2024 Active documented as of this encounter (statuses as of 05/25/2024) Active Problems Problem Noted Date Diagnosed Date [...] as of this encounter (statuses as of 05/25/2024) Resolved Problems Problem Noted Date Diagnosed Date [...] as of this encounter (statuses as of 05/25/2024) Immunizations Name Administration Dates Next Due COVID-19 mRNA, LNP-s, No Pre serve, 2-Dose Series ([employer]) 08/21/2023,05/08/2022,08/30/2021,01/22,12/27/2020 Pneumococcal Conjugate Vacc, 13 Valent (Prevnar) [...] Description 06/01/2024 1:40 PM EDT Office Visit [facility] [address] [place] [address] Carlito Nesbitt MD [address] [place] [address] 10/31/2024 7:30 AM EST Cardiac Studies Cardiac Studies [facility] [address] [facility] [place] [address] 02/14/2025 8:00 AM EDT Office Visit Family Practice [facility] [address] [place] [address] Joceline Salter DO [address] [place] [address] 04/18/2025 7:20 AM EDT Office Visit Dermatology [facility] [address] [facility] [place] [address] Rita Walker PA-C [address] [facility] [place] [address] Health Maintenance Due Date Last Done Comments [...] Procedure Name Priority Date/Time Associated Diagnosis Comments EKG SCANNED RESULT 04/08/2024 documented in this encounter Results * EKG SCANNED RESULT (04/08/2024) 04/08/2024 No Physician Data Unknown EKG documented in this encounter Advance Directives * Full Code (Latest Code Status on File) Date Activated Date Inactivated Comments 05/19/2010 11:40 AM 05/21/2010 5:47 PM This order reflects the patients wishes and were consensually agreed upon. Care Teams Kiln Stoker Relationship Specialty Start Date End Date Joceline Salter DO [address] [facility] [place] [id number] PCP - General Family Medicine 10/14/23 documented as of this encounter
--- OUTSIDE RECORDS SUMMARY | 2024-08-21 00:18 | External Medical Summary | Summary of Care ---
Author Name Unknown Organization [facility] Address [address] [place] [address] Phone [phone] Care Team Providers Care Facilities Planner Name Role Phone Joceline Salter DO Primary Care Provider +1- [phone] Reason for Visit * Reason Onset Date Comments Advice 06/06/2024 Encounter Details Date Type Department Care Team (Late st Contact Info) Description 06/06/2024 Telephone Family Practice [facility] [place] [address] [place] [address] Joceline Salter DO [address] [place] [address] Advice Allergies Active Allergy Reactions Criticality Noted Date [...] as of this encounter (statuses as of 06/06/2024) Medications Medication Sig Dispensed Refills Start Date [...] as of this encounter (statuses as of 06/06/2024) Active Problems Problem Noted Date Diagnosed Date [...] as of this encounter (statuses as of 06/06/2024) Resolved Problems Problem Noted Date Diagnosed Date [...] as of this encounter (statuses as of 06/06/2024) Immunizations Name Administration Dates Next Due COVID-19 mRNA, LNP-s, No Pre serve, 2-Dose Series ([employer]) 08/21/2023,05/08/2022,08/30/2021,01/22,12/27/2020 Pneumococcal Conjugate Vacc, 13 Valent (Prevnar) [...] encounter Miscellaneous Notes * Telephone Encounter - Marilyn Delgado OSA - 06/06/2024 10:44 AM EDT Faxed * Telephone Encounter - Gaby Tejada OSA - 06/06/2024 10:24 AM EDT Lisa with [facility] calling patient needs a script for tins unit for patients back To be faxed over [phone] documented in this encounter Plan of Treatment Upcoming Encounters Date Type Department Care Team (Late st Contact Info) Description 10/31/2024 7:30 AM EST Cardiac Studies Cardiac Studies [address] [place] [address] 02/06/2025 11:00 AM EDT Office Visit Nephrology, [facility] [address] [place] [address] Carlito Nesbitt MD 200 [facility] [place], [place] [address] 02/14/2025 8:00 AM EDT Office Visit Family Practice [address], [place] [address] [place] [address] Joceline Salter DO [address] [place] [address] 04/18/2025 7:20 AM EDT Office Visit Dermatology [facility] [place] [address] [place] [address] Rita Walker PA-C [address] [place] [address] Health Maintenance Due Date Last Done Comments [...] and were consensually agreed upon. Care Teams Facilities Planner Relationship Specialty Start Date End Date Joceline Salter DO [address] [facility] [place] [address] PCP - General Family Medicine 10/14/23 documented as of this encounter
--- OUTSIDE RECORDS SUMMARY | 2024-08-21 00:18 | External Medical Summary | Summary of Care ---
Author Name Unknown Organization [facility] Address [address] [place] [address] Phone [phone] Care Team Providers Care Rounding Machine Tender Name Role Phone Joceline Salter DO Primary Care Provider +1- [phone] Reason for Visit * Reason Comments Skin Check 1 yr routine skin ex am. Hx: atypical mole. Encounter Details Date Type Department Care Team (Late st Contact Info) Description 04/17/2024 7:20 AM EDT Office Visit Dermatology [facility] [address] [place] [address] Rita Walker PA-C [address] [place] [address] Multiple pigmented nevi*; Diffuse photodamage of skin; [...] mRNA, LNP-s, No Pre serve, 2-Dose Series ([employer]) 08/21/2023,05/08/2022,08/30/2021,01/22,12/27/2020 Pneumococcal Conjugate Vacc, 13 Valent (Prevnar) [...] as of this encounter Progress Notes * Kin Fox MD - 04/17/2024 10:23 AM EDT I have reviewed the charting notes and orders and associated images and agree with the assessment and plan of Rita Caballero PA-C . Kin Fox MD., Dermatology [facility] [address] [place] [address] , [place] [address] * Rita Walker PA-C - 04/17/2024 7:12 AM EDT Nursing Notes: Sofía Melgoza, NICK 04/17/24 0735 Signed Patient identified by name [...] 8:30 AM EDT Cardiac Studies Cardiac Studies [facility], [place] [address] [facility] [place] [address] 05/05/2024 3:00 PM EDT Office Visit Nephrology [facility] [address] [facility] [place] [address] Carlito Nesbitt MD [address] [facility] [place] [address] 02/14/2025 8:00 AM EDT Office Visit Family Practice [facility] [place] [address] [facility] [place] [address] Joceline Salter DO [address] [place] [address] 04/18/2025 7:20 AM EDT Office Visit Dermatology [address], [place] [address] [facility] [place] [address] Rita Walker PA-C [address] [facility] [place] [address] Health Maintenance Due Date Last Done Comments Zoster Vaccines (2 of 2) 06/30/2021 05/05/2021 DXA Scan 12/08/2022 12/08/2018, 07/30/2015 COVID-19 Vaccine ( season) 2023 08/21/2023, 05/08/2022, 08/30/2021, Additional history exists Depression Screening 06/23/2024 06/23/2023 GFR 04/08/2025 04/08/2024, 0406/2024, 10/04/2023, Additional history [...] interpreted or resulted by a [facility] or [facility] contracted radiologist. Rita Walker PA-C RADIOLOGY ( [facility]) documented in this encounter Visit Diagnoses [...] and were consensually agreed upon. Care Teams Rounding Machine Tender Relationship Specialty Start Date End Date Joceline Salter DO [address] [facility] [place] [address] PCP - General Family Medicine 10/14/23 documented as of this encounter
--- OUTSIDE RECORDS SUMMARY | 2024-08-21 00:18 | External Medical Summary | Summary of Care ---
Author Name Unknown Organization [facility] Address [address] [place] [address] Phone [phone] Care Team Providers Care Panel Gluer Name Role Phone Joceline Salter DO Primary Care Provider +1- [phone] Reason for Visit * Reason Comments Follow Up Encounter Details Date Type Department Care Team (Latest Contact Info) Description 05/25/2024 10:30 AM EDT Office Visit Cardiology, [facility] [address] [place] [address] Cristian Harris, [address] [place] [address] HTN, goal below 140/90*; Mitral valve prolapse; Palpitations; Mixed hyperlipidemia Allergies Active Allergy Reactions Criticality Noted Date [...] mRNA, LNP-s, No Pre serve, 2-Dose Series ([employer]) 08/21/2023,05/08/2022,08/30/2021,01/22,12/27/2020 Pneumococcal Conjugate Vacc, 13 Valent (Prevnar) [...] Sign Reading Time Taken Comments Blood Pressure 142/88 05/25/2024 10:37 AM EDT Pulse 64 05/25/2024 10:37 AM EDT Temperature - - Respiratory Rate 12 05/25/2024 10:37 AM EDT Oxygen Saturation - - Inhaled Oxygen Concentration - - Weight 66.8 kg (147 lb 3.2 oz) 05/25/2024 10:37 AM EDT Height - - Body Mass Index 25.67 03/06/2024 10:28 AM EDT documented in this encounter Progress Notes * Cristian Harris, - 05/25/2024 11:14 AM EDT 05/25/2024 Cardiology Follow Up CHIEF COMPLAINT: Follow up labile hypertension, mitral valve prolapse SUBJECTIVE: Diya Hawkins is a 73 year old year old female who returns routine cardiology follow-up of the above concerns. She notes overall feeling well. She believes that her back pain is perhaps the underlying cause much of her hypertension. She states that she was chronic back pain related to her scoliosis. She notes improvement with physical therapy. Most recently her blood pressure has been relatively well-controlled. She feels like the clonidine patch has assistance with her blood pressure as well as her anxiety symptoms, but she has his skin irritation when she removes the patches and she plans to bring this up with Dr. Yvette Nesbitt at her next visit. Past Medical History: Palpitations, likely secondary to sensed PVCs Hypertension, labile --follows with Nephrology Mild mitral valve prolapse Hyperlipidemia Multiple medication intolerances Extensive ROS: All systems reviewed & are unremarkable except as noted in HPI & below Cardiovascular (chest pain/palpitations/fluttering/diaphoresis/dyspnea on exertion/paroxysmally nocturnal dyspnea):Negative Review of patient's allergies indicates: Allergen Reactions Atorvastatin Joint pain Coreg [Carvedilol] Psych complications Estrogens Hydrochlorothiazide Other (Please comment) Fatigue,visual problems,muscle weakness, Indapamide Increased BP, agitation, shaky Lisinopril Other (Please comment) Visual problems, muscle cramps, Morphine And Codeine Rash Morphine Sulfate Nausea and vomiting Percocet [Oxycodone-Acetaminophen] Hallucinations Prozac [Fluoxetine] Other (Please comment) Chest pain and difficulty breathing Current Outpatient Medications Medication Sig Dispense Refill B-[address] under the tongue. IMODIUM A-D 2 MG PO TABS Take by mouth as needed. Aspirin 81 MG Oral Tablet Chewable (Aspirin [...] needed for Muscle spasms. 30 Tablet 2 Mometasone Furoate 0.1 % External Solution (Elocon) Apply topically to affected area 1 Applicator daily . 60 mL 0 OneTouch Verio In Vitro Strip (Glucose Blood) Use up to 4 times a day for hypoglycemia 100 Strip 11 OneTouch Verio w/Device Kit Use up to 4 times a day E11.9 1 Kit 0 cloNIDine HCl 0.1 MG Oral Tablet (Catapres) Take 1 tab as needed maximal three times daily if BP > 160/100 45 Tablet 3 No current facility-administered medications for this visit. OBJECTIVE/PHYSICAL EXAMINATION: BP 142/88 | Pulse 64 | Resp 12 | Wt 66.8 kg (147 lb 3.2 oz) | BMI 25.67 kg/m | BSA 1.73 m General: no acute distress and stated age Eyes: conjunctiva are pink and non-injected, sclera clear Neck: normal jugular venous pulse, no hepatojugular reflux Chest: normal shape and normal respiratory effort Lungs: clear to auscultation , no rales rhonchi or wheezing Cardiac Exam: - regular heart sounds, 1/6 SM Abdomen: abdomen soft, non-tender, no abnormal masses and no hepatosplenomegaly Musculoskeletal: no gait disturbance, no weakness Extremities: no edema and no cyanosis Neuro: grossly normal exam Psych: appropriate affect and insight. Data: The patient had an EKG within the [facility] in March, that revealed sinus bradycardia 53 beats per minute, left atrial enlargement, otherwise normal tracing, stable findings Summary of ttecho performed 04/18/24: The left ventricular cavity size is normal. The LV wall thickness is mildly increased (concentric). There is isolated basal septal hypertrophy with maximal thickness of 1.4 cm. The left ventricular wall motion is normal. The qualitative LV ejection fraction is 55-59% (normal). The left ventricular diastolic function is mildly abnormal (grade I). The aortic valve is mildly calcified. The aortic valve opening is mildly reduced. Mild aortic valve regurgitation is present. There is focal calcification of the anterior mitral valve leaflet with trace mitral insufficiency Lipid Panel Results: Results for orders placed or performed in visit on 08/03/23 LIPID PANEL WITH DIRECT LDL IF TG IS HIGH Result Value Ref Range Triglycerides 57 <=174 mg/dL Cholesterol 182 <200 mg/dL HDL Cholesterol 67 >49 mg/dL Non-HDL Cholesterol 115 <=159 mg/dL LDL Cholesterol 104 <=129 mg/dL ASSESSMENT / PLAN: 73 year old year old female HTN, goal below 140/90 (Primary) Mitral valve prolapse Palpitations Mixed hyperlipidemia Trace mitral valve insufficiency noted on most recent echocardiogram. Overall patient describes stable cardiac signs and symptoms. I counseled the patient to bring up her concerns about the clonidine patch at her next Nephrology visit. Perhaps she would do well with oral clonidine which may be more affordable and not cause skin irritation, but I think she should bring it up with the provider the prescribed medication for the purpose of continuity of care. Cholesterol reasonably controlled with diet. Continue clonidine, chlorthalidone, aspirin. Follow Up: Return in about 1 year (around 05/25/2025) for Clinic Visit. | For: Clinic Visit Cristian Harris DO Cardiology, [address] [address] This chart was completed in part utilizing [employer] Speech Voice Recognition Software. Grammatical errors, random word insertions, prounoun errors, and incomplete sentences are an occasional consequence of this system due to software limitations, ambient noise, and hardware issues. Any formal questions or concerns about the content, text, or information contained within the body of this dictation should be directly addressed to the provider for clarification. documented in this encounter Nursing Notes * Jess Long CMA - 05/25/2024 10:30 AM EDT Chief Complaint Patient presents with Follow Up Examination Room: 12 Name: Diya Hawkins Date of : (1950). Reason for Visit: Follow up Interim Hospitalization(s): [facility] for HTN , states her BP gets worse when having back pain Problems/Concerns: Denies Chest Pain/SOB: Denies [facility] Discussed: Yes [facility] is a way you can talk to your provider online through e-mail. Would you like to sign up? I can activate it for you? ALREADY ACTIVE Patient was instructed to not get up on the exam table until directed and assisted by their provider; patient is to remain seated in the chair/ wheelchair/ exam table for fall prevention and safety reasons. Patient is aware to have assistance to step down off exam table with personnel. Patient voiced full comprehension of instructions. documented in this encounter Plan of Treatment Upcoming Encounters Date Type Department Care Team (Late st Contact Info) Description 06/01/2024 1:40 PM EDT Office Visit Nephrology, [facility] [address] [place] [address] Carlito Nesbitt MD 200 [facility] [place] [address] 10/31/2024 7:30 AM EST Cardiac Studies Cardiac Studies [facility] [address] [place] [address] 02/14/2025 8:00 AM EDT Office Visit Family Practice [facility] [place] [address] [place] [address] Joceline Salter, [address] [place] [address] 04/18/2025 7:20 AM EDT Office Visit Dermatology [facility] [place] [address] [place] [address] Rita Walker PA-C [address] [place] [address] Health Maintenance Due Date Last Done Comments [...] goal below 140/90- Primary Unspecified essential hypertension Mitral valve prolapse Mitral valve disorders Palpitations Mixed hyperlipidemia documented in this encounter Advance Directives * Full Code (Latest Code Status on File) Date Activated Date Inactivated Comments 05/19/2010 11:40 AM 05/21/2010 5:47 PM This order reflects the patients wishes and were consensually agreed upon. Care Teams Panel Gluer Relationship Specialty Start Date End Date Joceline Salter DO [address] [facility] [place] [address] PCP - General Family Medicine 10/14/23 documented as of this encounter"
--- OUTSIDE RECORDS SUMMARY | 2024-08-21 00:19 | External Medical Summary | Summary of Care ---
Author Name Unknown Organization [facility] Address [address] [place] [address] Phone [phone] Care Team Providers Care Power System Engineer Name Role Phone Joceline Salter DO Primary Care Provider +1- [phone] Reason for Visit * Reason Onset Date Comments Appointment 04/10/2024 PT Encounter Details Date Type Department Care Team (Late st Contact Info) Description 04/10/2024 Telephone Family Practice [facility] [place] [address] [place] [address] Joceline Salter DO [address] [place] [address] Appointment (PT) Allergies Active Allergy Reactions Criticality Noted Date [...] as of this encounter (statuses as of 04/10/2024) Medications Medication Sig Dispensed Refills Start Date [...] as of this encounter (statuses as of 04/10/2024) Active Problems Problem Noted Date Diagnosed Date [...] as of this encounter (statuses as of 04/10/2024) Resolved Problems Problem Noted Date Diagnosed Date [...] as of this encounter (statuses as of 04/10/2024) Immunizations Name Administration Dates Next Due COVID-19 mRNA, LNP-s, No Pre serve, 2-Dose Series ([employer]) 08/21/2023,05/08/2022,08/30/2021,01/22,12/27/2020 Pneumococcal Conjugate Vacc, 13 Valent (Prevnar) [...] encounter Miscellaneous Notes * Telephone Encounter - Mariely Peck OSA - 04/10/2024 4:40 PM EDT PT referral faxed to [facility]. documented in this encounter Plan of Treatment Upcoming Encounters Date Type Department Care Team (Late st Contact Info) Description 04/17/2024 7:20 AM EDT Office Visit Dermatology [place] [address] [facility] [place] [address] Rita Walker PA-C [address] [facility] [place] [address] 04/18/2024 8:30 AM EDT Cardiac Studies [facility] [place] [address] [place] [address] 05/05/2024 3:00 PM EDT Office Visit Nephrology, [facility] [address] [facility] [place], [place] [address] Carlito Nesbitt MD [address] [facility] [place], [place] [address] 02/14/2025 8:00 AM EDT Office Visit Family Practice [address], [place] [address] [place] [address] Joceline Salter DO [address] [place] [address] Health Maintenance Due Date Last Done Comments Zoster Vaccines (2 of 2) 06/30/2021 05/05/2021 DXA Scan 12/08/2022 12/08/2018, 07/30/2015 COVID-19 Vaccine (2022- season) 2023 08/21/2023, 05/08/2022, 08/30/2021, Additional history exists Depression Screening 06/23/2024 06/23/2023 GFR 02/10/2025 02/11/2024, 09/24, 08/03/2023, Additional history exists Albumin/Creatinine Ratio 08/03/2026 023, [...] and were consensually agreed upon. Care Teams Power System Engineer Relationship Specialty Start Date End Date Joceline Salter DO [address] [facility] [place] [id number] PCP - General Family Medicine 10/14/23 documented as of this encounter
--- OUTSIDE RECORDS SUMMARY | 2024-08-21 00:19 | External Medical Summary | Summary of Care ---
Author Name Unknown Organization [facility] Address [address] [place] [address] Phone [phone] Care Team Providers Care Underwriting Service Representative Name Role Phone Joceline Salter DO Primary Care Provider +1- [phone] Encounter Details Date Type Department Care Team (Late st Contact Info) Description 04/11/2024 Orders Only Family Practice [facility] [place] [address] [place] [address] Joceline Salter DO [address] [place] [address] Allergies Active Allergy Reactions Criticality Noted Date [...] as of this encounter (statuses as of 04/11/2024) Medications Medication Sig Dispensed Refills Start Date End Date Status B-[address] under the tongue. [...] as of this encounter (statuses as of 04/11/2024) Active Problems Problem Noted Date Diagnosed Date [...] as of this encounter (statuses as of 04/11/2024) Resolved Problems Problem Noted Date Diagnosed Date [...] as of this encounter (statuses as of 04/11/2024) Immunizations Name Administration Dates Next Due COVID-19 mRNA, LNP-s, No Pre serve, 2-Dose Series ([email or web address]) 08/21/2023,05/08/2022,08/30/2021,01/22,12/27/2020 Pneumococcal Conjugate Vacc, 13 Valent (Prevnar) [...] 04/17/2024 7:20 AM EDT Office Visit Dermatology [facility] [address] [place] [address] Rita Walker PA-C [address] [facility] [place] [address] 04/18/2024 8:30 AM EDT Cardiac Studies Cardiac Studies [facility] [address] [place] [address] 05/05/2024 3:00 PM EDT Office Visit Nephrology, [facility] [address] [place] [address] Carlito Nesbitt MD [address] [place] [address] 02/14/2025 8:00 AM EDT [facility] [address] [place] [address] Joceline Salter DO [address] [place] [address] Health Maintenance Due Date Last Done Comments Zoster Vaccines (2 of 2) 06/30/2021 05/05/2021 DXA Scan 12/08/2022 12/08/2018, 07/30/2015 COVID-19 Vaccine ( season) 2023 08/21/2023, 05/08/2022, 08/30/2021, Additional history exists Depression Screening 06/23/2024 06/23/2023 GFR 02/10/2025 04/08/2024, 01/23, 10/04/2023, Additional history exists Albumin/Creatinine [...] Procedure Name Priority Date/Time Associated Diagnosis Comments CHEMISTRY-OUTSIDE Routine 04/08/2024 documented in this encounter Results * CHEMISTRY-OUTSIDE (04/08/2024) Not all results display below - see scan for full detail OUTSIDE LAB (SEE SCANNED REPORT) Comment:SCAN INCLUDES - CBCD , CMP, MAGNESIUM, PRO-B TYPE NATRIURETIC PEPTIDE, TROPONIN I CREATININE-OUTSID E LAB 0.60 0.40 - 1.50 MG/DL OUTSIDE LAB (SEE SCANNED REPORT) EGFR-OUTSIDE LAB >90 >=60 ML/MIN OUTSIDE LAB (SEE SCANNED REPORT) POTASSIUM-OUTSIDE LAB 4.0 3.6 - 5.0 MMOL/L OUTSIDE LAB (SEE SCANNED REPORT) GLUCOSE-OUTSIDE LAB 101 65 - 110 MG/DL OUTSIDE LAB (SEE SCANNED REPORT) HOURS FASTING OUTSID E LAB (SEE SCANNED REPORT) TRIGLYCERIDES-OUT SIDE LAB OUTSIDE LAB (SEE SCANNED REPORT) CHOLESTEROL-OUTSI DE LAB OUTSIDE LAB (SEE SCANNED REPORT) HDL-OUTSIDE LAB OUTS [facility] (SEE SCANNED REPORT) CHOL/HDL RATIO-OUTSIDE LAB OUTSIDE LA B (SEE SCANNED REPORT) LDL (CALCULATED)-OUTS [facility] OUTSIDE LAB (SEE SCANNED REPORT) LDL (DIRECT MEASURE)-OUTSIDE LAB OUTSIDE LAB (SEE SCANNED REPORT) HEMOGLOBIN, [id number]-[id number] LAB OUTSIDE LAB (SEE SCANNED REPORT) PHOSPHORUS-OUTSID E LAB OUTSIDE LAB (SEE SCANNED REPORT) PTH-OUTSIDE LAB OUTS [facility] (SEE SCANNED REPORT) MICROALBUMIN RATIO-OUTSIDE LAB OUTSIDE LA B (SEE SCANNED REPORT) PROTEIN, UA-OUTSIDE LAB OUTSIDE LAB (SEE SCANNED REPORT) HGB 14.2 12.0 - 16.0 GM/DL OUTSIDE LAB (SEE SCANNED REPORT) 04/08/2024 History Per Patient LABORATORY OUTSIDE LAB (SEE SCANNED REPORT) documented in this encounter Advance Directives * Full Code (Latest Code Status on File) Date Activated Date Inactivated Comments 05/19/2010 11:40 AM 05/21/2010 5:47 PM This order reflects the patients wishes and were consensually agreed upon. Care Teams Underwriting Service Representative Relationship Specialty Start Date End Date Joceline Salter DO [address] [facility] [place] [id number] PCP - General Family Medicine 10/14/23 documented as of this encounter
--- OUTSIDE RECORDS SUMMARY | 2024-08-21 00:19 | External Medical Summary | Summary of Care ---
Author Name Unknown Organization [facility] Address [address] [place] [address] Phone [phone] Care Team Providers Care [place] Maori Name Role Phone Joceline Salter DO Primary Care Provider +1- [phone] Encounter Details Date Type Department Care Team (Late st Contact Info) Description 04/11/2024 Orders Only Family Practice [facility] [place] [address] [place] [address] Joceline Salter DO [address] [place] [address] Allergies Active Allergy Reactions Criticality [...] Refills Start Date End Date Status B-[address] under the tongue. [...] mRNA, LNP-s, No Pre serve, 2-Dose Series ([facility]) 08/21/2023,05/08/2022,08/30/2021,01/22,12/27/2020 Pneumococcal Conjugate Vacc, 13 Valent (Prevnar) [...] 04/17/2024 7:20 AM EDT Office Visit Dermatology [facility] [address] [place] [address] Rita Walker PA-C [address] [facility] [place] [address] 04/18/2024 8:30 AM EDT Cardiac Studies Cardiac Studies [facility] [address] [place] [address] 05/05/2024 3:00 PM EDT Office Visit Nephrology, [facility]ra [facility] [address] [place] [address] Carlito Nesbitt MD [address] [place] [address] 02/14/2025 8:00 AM EDT Office Visit Family Practice [address] [place] [address] Joceline Salter DO [address] [place] [address] Health Maintenance Due Date Last Done Comments [...] Procedure Name Priority Date/Time Associated Diagnosis Comments XR CHEST 1 VIEW Routine 04/08/2024 documented in this encounter Results * XR CHEST 1 VIEW (04/08/2024) Anatomical Region Laterality Modality Chest Other 04/08/2024 History Per Patient RADIOLOGY (RAD GENER AL) documented in this encounter Advance Directives * Full Code (Latest Code Status on File) Date Activated Date Inactivated Comments 05/19/2010 11:40 AM 05/21/2010 5:47 PM This order reflects the patients wishes and were consensually agreed upon. Care Teams [place] Maori Relationship Specialty Start Date End Date Joceline Salter DO [address] [facility] [place] [address] PCP - General Family Medicine 10/14/23 documented as of this encounter
--- OUTSIDE RECORDS SUMMARY | 2024-08-21 00:19 | External Medical Summary | Summary of Care ---
Author Name Unknown Organization [facility] Address [address] [place] [address] Phone [phone] Care Team Providers Care Actuarial Director Name Role Phone Joceline Salter DO Primary Care Provider [phone] Reason for Referral * Evaluate & Treat - Unlimited Visits (Within 10 days (routine)) - Authorized Specialty Diagnoses / Procedures Referred By Evonne rachel Referred To Contact Physical Therapy / Physical Medicine And Rehab Diagnoses Muscle spasm of back Muscle spasms of neck Craig Escoto PA-C [address] [facility] [place] [address] Referral ID Status Reason Start Date Expiration Date Visits Requested Visits Authorized [id number] Authorized Specialty Services Required 04/10/2024 999 999 Question Answer Referral Priority Within 10 days (routine) Where should this appointment be scheduled? [facility] Reason for Visit * Reason Comments Emergency Department Follow-Up [facility] upper back pain, htn Encounter Details Date Type Department Care Team (Late st Contact Info) Description 04/10/2024 3:40 PM EDT Office Visit Family Practice [place] [address] [place] [place] [address] Craig Escoto PA-C [address] [facility] [place] [address] HTN, goal below 140/90*; Muscle spasm of back; Muscle spasms of neck; Risk and functional assessment Allergies Active Allergy Reactions Criticality Noted Date [...] Muscle spasms. 30 Tablet 2 04/10/2024 Active Hospital, Clinic, or Other Facility Administered Medication Ordered Dose Route Frequency Start Date End Date Status keTORolac (Toradol) 30 MG/ML inj 30 mgIndications:Muscle spasm of back,Muscle spasms of neck 30 mg IM ONCE 04/10/2024 04/10/2024 Ended documented as of this encounter (statuses as [...] mRNA, LNP-s, No Pre serve, 2-Dose Series (SpectraLinear) 08/21/2023,05/08/2022,08/30/2021,01/22,12/27/2020 Pneumococcal Conjugate Vacc, 13 Valent (Prevnar) [...] Sign Reading Time Taken Comments Blood Pressure 146/80 04/10/2024 3:38 PM EDT Pulse 72 04/10/2024 3:38 PM EDT Temperature 36.8 C (98.2 F) 04/10/2024 3:38 PM ED T Respiratory Rate 16 04/10/2024 3:38 PM EDT Oxygen Saturation 98% 04/10/2024 3:38 PM EDT Inhaled Oxygen Concentration - - Weight 66.5 kg (146 lb 9.6 oz) 04/10/2024 3:38 P M EDT Height - - Body Mass Index 25.56 03/06/2024 10:28 AM EDT documented in this encounter Patient Instructions * Patient Instructions* Diya Hare, BRODYA - 04/10/2024 3:35 PM EDT Patient Instructions - Fall Prevention (This education is for all patients over 65 regardless of symptoms) Remember to take your current medications as prescribed. In order to prevent falls, you are encouraged to: Exercise Utilize assistive/adaptive devices Avoid multifocal lenses when walking Avoid hazards in home Maintain a regular toileting schedule Any questions please contact our office. Preventing Falls in the Home (This education is for all patients over 65 regardless of symptoms) As you get older, falls are more likely. Thats because your reaction time slows. Your muscles and joints may also get stiffer, making them less flexible. Illness, medications, and vision changes can also affect your balance. A fall could leave you unable to live on your own. To make your home safer, follow these tips: Floors Put nonskid pads under area rugs Remove throw rugs Replace worn floor coverings Tack carpets firmly to each step on carpeted stairs. Put nonskid strips on the edges of uncarpeted stairs Keep floors and stairs free of clutter and cords Arrange furniture so there are clear pathways Clean up any spills right away Bathrooms Install grab bars in the tub or shower Apply nonskid strips or put a nonskid rubber mat in the tub or shower Sit on a bath chair to bathe Use bathmats with nonskid backing Lighting Keep a flashlight in each room Put a nightlight along the pathway between the bedroom and the bathroom [employer] Patient Education Copyright 2008 - 2010 [employer] except where otherwise noted Preventing Falls: Exercises to Improve Balance, Flexibility, Strength, and Staying Power (This education is for all patients over 65 regardless of symptoms) Certain types of exercises may help make you less likely to fall. Try the ones below. Or do other exercises that your healthcare provider suggests. Depending on your health, you may need to start slowly. Dont let that stop you. Even small amounts of exercise can help you. Be sure to talk to yourhealthcare provider before starting any exercise program. Improve Balance Many types of exercise can help improve balance. Remigio chi and yoga are good examples. Heres another one to try. You can do it anytime and almost anywhere. Stand next to a counter or solid support. Push yourself up onto your tiptoes. Hold for 5 seconds. If you start to lose your balance, hold on to the counter. Rest and repeat 5 times. Work up to holding for 20 to 30 seconds, if you can. Increase Flexibility Being more flexible makes it easier for you to move around safely. Try exercises like the seated hamstring stretch. Sit in a chair and put one foot on a stool. Straighten your leg and reach with both hands down either side of your leg. Reach as far down your leg as you can. Hold for about 20 seconds. Go back to the starting position. Then repeat 5 times. Switch legs. Build Strength Resistance exercises help build strength. You can do them without equipment. Or you can use weights, elastic bands, or special machines. One such exercise is called the biceps curl. You can hold a 1 pound weight or even a can of soup. Do this exercise at least 3 times a week. Strive for everyday. Sit up straight in a chair. Keep your elbow close to your body and your wrist straight. Bend your arm, moving your hand up to your shoulder. Then slowly lower your arm. Repeat 5 times. Switch to the other arm. Build Your Staying Power Aerobic exercises make your heart and lungs stronger so you can keep moving longer. Walking and swimming are two of the best types of exercises you can do. Using a stationary bike is great, too. Find an aerobic exercise that you enjoy. Start slowly and build up. Even 5 minutes is helpful. Aimfor a goal of 30 minutes, at least 3 times a week. You dont have to do 30 minutes in one session. Break it up and walk a little throughout the day. More Helpful Tips Start easy. Slowly work up to doing more. Talk with your healthcare provider about the best exercises for you. Call senior centers or health clubs about exercise programs. If needed, have a family member watch you walk every so often to check your stability. Exercise with a friend. Choose an activity you both enjoy. Try exercises that you can do anytime, anywhere. Here are two examples. Have someone with you when you first try these: Practice walking by placing one foot right in front of the other. Stand up and sit down 10 times. Repeat this throughout the day. [employer] Patient Education Copyright 2008 - 2010 [employer] except where otherwise noted. Preventing Falls: Moving Safely Using a Cane or Walker (This education is for all patients over 65 regardless of symptoms) Keep the cane away from your feet so you dont trip. A walking aid, such as a cane or walker, can help you stay more independent and avoid falls. Remember to keep your walking aid within easy reach when youre in a chair or in bed. And learn how to use it safely so you dont injure yourself. Using a Cane If you have a stronger side, hold the cane on that side. Get your balance. Move the cane and your weaker leg forward. Support your weight on both the cane and your weaker side. Step with your stronger leg. Start again from step 1. If youre using a folding walker, be sure you know how to lock it open. Check that its locked open before each use. Using a Walker Roll the walker (or lift it, if youre using one without wheels) forward about 12 inches. Step forward with your weaker leg first. Use the walker to help keep your balance. Bring your other foot forward to the center of the walker. Start again from step 1. Helpful Tips Check with your healthcare provider about the right walking aid to use. Ask about a walker with a seat attached. Check the tips of your cane or walker to make sure they have nonskid covers. Move slowly from room to room. Dont hughes. Sit down to get dressed. Use a xiomara pack or backpack to keep your hands free. Get help for jobs that mean climbing, even on a stepstool. [employer] Patient Education Copyright 2008 - 2010 [employer] except where otherwise noted. Urinary Incontinence Plan of Care Documentation: (This education is for all patients over 65 regardless of symptoms) Current medications reconciled. Patient encouraged to: Practice kegal exercises Provide education materials Use the restroom every 2 hours throughout the day Limit caffeine, alcohol, spicy foods and acidic foods Keep a bladder diary Limit fluid intake 3-4 hours before bed Lose weight Prevent constipation Take fluid pills at a time when you can get to the bathroom quickly Control sugar better if diabetic Limit fluid intake to 60 oz. per day Wear support stockings (TEDs)if you have edema Diya Hare, [facility] 04/10/2024 Kegel Exercises Kegel exercises dont require special clothing or equipment. Theyre easy to learn and simple to do. And if you do them right, no one can tell youre doing them, so they can be done almost anywhere. Your doctor, nurse, or physical therapist can answer any questions you have and help you get started. A Weak Pelvic Floor The pelvic floor muscles may weaken due to aging, and vaginal childbirth, injury, surgery, chronic cough, or lack of exercise. If the pelvic floor is weak, your bladder and other pelvic organs may sag out of place. The urethra may also open too easily and allow urine to leak out. Kegel exercises can help you strengthen your pelvic floor muscles so they can better support the pelvic organs and control urine flow. How Kegel Exercises Are Done Try each of the Kegel exercises described below. When youre doing them, try not to move your leg, buttock, or stomach muscles. While youre urinating, try to stop the flow of urine. Start and stop it as often as you can. Contract as if you were stopping your urine stream, but do it when youre not urinating. Tighten your rectum as if trying not to pass gas. Contract your anus, but dont move your buttocks. Helpful Hints Do your Kegels as often as you can. The more you do them, the faster youll feel the results. Pick an activity you do often as a reminder. For instance, do your Kegels every time you sit down. Tighten your pelvic floor before you sneeze, get up from a chair, cough, laugh, or lift. This protects your pelvic floor from injury and can help prevent urine leakage. Try to hold each Kegel for a slow count to five. You probably wont be able to hold them for thatlong at first, but keep practicing. It will get easier as your pelvic floor gets stronger. Eventually, special weights that you place in your vagina may be recommended to help make your Kegels even more effective. [employer] Patient Education Copyright 2008 - 2010 [employer] except where otherwise noted. Here are some helpful tips for your urinary incontinence: (This education is for all patients over 65 regardless of symptoms) Practice Kegel exercises Use the restroom every 2 hours throughout the day Limit caffeine, alcohol, spicy foods, and acidic foods Keep a bladder diary Limit fluid intake 3-4 hours before bed Lose weight Prevent constipation Take fluid pills at a time when can get to the bathroom quickly Control sugar better if diabetic Limit fluid intake to 60 oz. per day Any questions, please feel free to contact our office. documented in this encounter Progress Notes * Craig Escoto PA-C - 04/10/2024 3:48 PM EDT Images from the original note were not included. History of Present Illness Diya Hawkins is a 73 year old female that presents for ED f/u. Patient reports she was recently evaluated at [facility] ED for upper back pain and hypertension. However, I do not have any such records of this. I do see that she was directed to the ED by Nephrology on 04/08/2024 due to persistently elevated blood pressure readings as high as 190 systolic. - patient's self reports that in the ER, her lab work and EKG were normal; she states that it was determined that her scoliosis was the cause of her back pain/muscle spasms, so she was treated with IM Toradol as well as topical Lidoderm patch and discharged. Back pain has been doing better since then, although she will still have them now on again. - She continues on clonidine 0.2 mg/24 hour patch which she changes every Wednesday evening. Continues chlorthalidone 25 mg as needed; clonidine 0.1 mg tablets also as needed for BP greater than 160/100. Since discharge, BP has been better on average for the most part. Although she continues to report periodic nonspecific sx's such as blurred vision, SOB, sleepiness/grogginess, weakness, dry mouth. She questions if this is due to the clonidine patch. She has been following with Nephrology for history of uncontrolled high blood pressure, appears last visit was 01/31/2024. History of renal vascular scan in 09/2023 which was normal. She does not have any proteinuria per most recent urine. We have discussed sleep study testing in the past but she states she does not have it. She is tried and failed multiple blood pressure meds in the past due to a host of side effects. She requested benzo for muscle relaxer. Advised this is not the ideal treatment. States she last took flexeril in 2011, but doesn't think it helped that much. Will try baclofen. She also requested IMtoradol today. Will give 30mg since she just had dose in the ER. Patient Active Problem List Diagnosis HTN, goal below 140/90 Overweight (BMI 25.0-29.9) Vaginal dryness History of colon surgery Vitamin D deficiency Mixed hyperlipidemia Osteopenia of multiple sites Double vision History of TIA (transient ischemic attack) Review of patient's allergies indicates: Allergen Reactions [...] MCG SL SUBL Place under the tongue. Aspirin 81 MG Oral Tablet Chewable (Aspirin [...] needed for Muscle spasms. 30 Tablet 2 IMODIUM A-D 2 MG PO TABS Take [...] times a day E11.9 1 Kit 0 No current facility-administered medications for this visit. Past Medical History: Diagnosis Date Diverticulitis of colon 05/14/2010 Diverticulitis of colon 05/14/2010 Past Surgical History: Procedure Laterality Date CYSTOSCOPY/INSERTION OF STENT 05/19/2010 CYSTOURETHROSCOPY WITH INSERTION URETERAL STENT performed by NICHOLAS VELASCO at OR [facility] [place] INFORMATION Clavicle fx repair INFORMATION 1997 Nevus sebacceous wendy removal LAP;W/HYSTERECTOMY Hysterectomy Complete PARTIAL REMOVAL OF COLON 12" removed REMOVAL OF APPENDIX Appendectomy REMOVE TONSILS & ADENOIDS, UNDER 12 Tonsillectomy/Adenoids,<10 Y/O REPAIR RECURRENT INGUINAL HERNIA 1995 Inguinal Hernia Repair, Recurrent Family History Problem Relation Name Age of [...] Alive Social History Socioeconomic History Marital status: Tobacco Use Smoking status: Former Smokeless tobacco: Never Tobacco comments: quit 33 years ago Vaping Use Vaping status: Never Used Substance and Sexual Activity Alcohol use: No Comment: stopped 1979 Drug use: No Sexual activity: Yes control/protection: Surgical Social Determinants of Health Food Insecurity: No Food Insecurity (02/01/2024) Hunger Vital Sign Worried About Running Out of Food in the Last Year: Never true Ran Out of Food in the Last Year: Never true Review of Systems Constitutional: Positive for fatigue. Negative for chills and fever. HENT: Negative. Eyes: Positive for visual disturbance. Respiratory: Positive for shortness of breath. Cardiovascular: Negative. Negative for chest pain, palpitations and leg swelling. Gastrointestinal: Negative. Negative for abdominal pain, blood in stool, constipation, diarrhea, nausea and vomiting. Endocrine: Negative. Genitourinary: Negative. Musculoskeletal: Positive for back pain, myalgias, neck pain and neck stiffness. Skin: Negative. Negative for rash. Allergic/Immunologic: Negative. Neurological: Negative. Negative for syncope and light-headedness. Hematological: Negative. Psychiatric/Behavioral: The patient is nervous/anxious. All other systems reviewed and are negative. Physical Exam BP 146/80 | Pulse 72 | Temp 36.8 C (98.2 F) (Infrared ) | Resp 16 | Wt 66.5 kg (146 lb 9.6 oz) | SpO2 98% | BMI 25.56 kg/m | BSA 1.73 m Physical Exam Vitals and nursing note reviewed. Constitutional: Appearance: Normal appearance. HENT: Head: Normocephalic and atraumatic. Right Ear: Tympanic membrane, ear canal and external ear normal. Left Ear: Tympanic membrane, ear canal and external ear normal. Nose: Nose normal. Mouth/Throat: Mouth: Mucous membranes are moist. Pharynx: Oropharynx is clear. Eyes: Extraocular Movements: Extraocular movements intact. Conjunctiva/sclera: Conjunctivae normal. Pupils: Pupils are equal, round, and reactive to light. Neck: Comments: Cervical spine normal to inspection without visible deformity or any palpable deformity; mild tenderness to palpation with associated spasm in the trapezius primarily on the right side extending down into the lower thoracic spine Cardiovascular: Rate and Rhythm: Normal rate and regular rhythm. Pulses: Normal pulses. Heart sounds: Normal heart sounds. No murmur heard. Pulmonary: Effort: Pulmonary effort is normal. Breath sounds: Normal breath sounds. No wheezing, rhonchi or rales. Abdominal: General: Abdomen is flat. Bowel sounds are normal. Palpations: Abdomen is soft. Tenderness: There is no abdominal tenderness. There is no guarding or rebound. Musculoskeletal: General: Normal range of motion. Cervical back: Normal range of motion and neck supple. Tenderness present. Lymphadenopathy: Cervical: No cervical adenopathy. Skin: General: Skin is warm. Neurological: General: No focal deficit present. Mental Status: She is alert and oriented to person, place, and time. Psychiatric: Mood and Affect: Mood normal. Behavior: Behavior normal. Thought Content: Thought content normal. Judgment: Judgment normal. I have reviewed most recent labs BMP results Recent Labs Units 02/11/24 0901 10/04/23 0826 08/03/23 0800 SODIUM - [facility] mmol/L 137 140 143 POTASSIUM - [facility] mmol/L 3.5 4.0 4.4 CHLORIDE - [facility] mmol/L 96* 99 104 CO2 - [facility] mmol/L 30 29 28 CREATININE - [facility] mg/dL 0.7 0.6 0.7 BUN - [facility] mg/dL 13 14 11 CBC results Recent Labs Units 08/03/23 0800 06/11/23 0000 05/04/23 1141 11/13/22 0823 WBC K/uL 4.19 -- 6.39 5.52 HGB g/dL 14.6 15.1 14.3 15.0 HCT % 46.3* -- 43.6 47.1* PLT K/uL 248 -- 239 256 TSH results Recent Labs Units 08/03/23 0800 11/13/22 0823 TSH - [facility] uIU/mL 2.13 1.91 Hepatic panel results Recent Labs Units 08/03/23 0800 05/04/23 1141 01/14/23 0747 PROTEIN - [facility] g/dL 6.4 6.5 6.0 BILIRUBIN, TOTAL - [facility] mg/dL 0.7 0.6 1.0 ALKALINE PHOSPHATASE - [facility] U/L 53 48 44 AST - [facility] U/L 21 21 23 ALT - [facility] U/L 18 21 21 Assessment and Plan HTN, goal below 140/90 BP stable today; continue to follow with nephrology. Muscle spasm of back Will give another shot of toradol today at pt's request. Otherwise try baclofen. Update xrays and refer to PT. - Baclofen 10 MG Oral Tablet (Lioresal); Take 1 Tablet by mouth at bedtime as needed for Muscle spasms. - XR C SPINE 4-5 VIEWS - XR T SPINE AP AND LATERAL - PHYSICAL THERAPY REFERRAL OP Muscle spasms of neck - XR C SPINE 4-5 VIEWS - XR T SPINE AP AND LATERAL - PHYSICAL THERAPY REFERRAL OP Risk and functional assessment Wrap-Up Follow Up: Return if symptoms worsen or fail to improve, for As scheduled. | For: As scheduled | Check-out note: Please request ED report from [facility] from 04/08/2024. Time: I spent a total of 20-29 minutes (exact time 26 mins) on the date of service in preparation, delivery, and documentation of the care provided to Diya Hawkins excluding any time spent in the performance of separately billed services. * Diya Hare NRCMA - 04/10/2024 3:35 PM EDT Urinary Incontinence Plan of Care Documentation: (This education is for all patients over 65 regardless of symptoms) Current medications reconciled. Patient encouraged to: Practice kegal exercises Provide education materials Use the restroom every 2 hours throughout the day Limit caffeine, alcohol, spicy foods and acidic foods Keep a bladder diary Limit fluid intake 3-4 hours before bed Lose weight Prevent constipation Take fluid pills at a time when you can get to the bathroom quickly Control sugar better if diabetic Limit fluid intake to 60 oz. per day Wear support stockings (TEDs)if you have edema LAURA [place] 04/10/2024 documented in this encounter Nursing Notes * Diya Hare NRCMA - 04/10/2024 3:40 PM EDT Chief Complaint Patient presents with Emergency Department Follow-Up [facility] upper back pain, htn documented in this encounter Plan of Treatment Upcoming Encounters Date Type Department Care Team (Late st Contact Info) Description 04/17/2024 7:20 AM EDT Office Visit Dermatology [place] [address] [place] [address] Rita Walker PA-C [address] [facility] [place] [address] 04/18/2024 8:30 AM EDT [facility] [address] [place] [address] 05/05/2024 3:00 PM EDT Office Visit Nephrology, Myra Denney [address] [facility] [place], [place] [address] Carlito Nesbitt MD [address] [facility] [place], [place] [address] 02/14/2025 8:00 AM EDT Office Visit Family Practice [facility] [place] [address] [facility] [place] [address] Joceline Salter DO [address] [place] [address] Scheduled Orders Name Type Priority Associated Diagnoses Orde r Schedule XR C SPINE 4-5 VIEWS Medical Imaging Routine Muscle spasm of back Muscle spasms of neck Ordered: 04/10/2024 XR T SPINE AP AND LATERAL Medical Imaging Routine Muscle spasm of back Muscle spasms of neck Ordered: 04/10/2024 Scheduled Referrals Name Type Priority Associated Diagnoses Orde r Schedule PHYSICAL THERAPY REFERRAL OP Referral Within 10 days (routine) Muscle spasm of back Muscle spasms of neck Ordered: 04/10/2024 Health Maintenance Due Date Last Done Comments [...] goal below 140/90- Primary Unspecified essential hypertension Muscle spasm of back Other symptoms referable to back Muscle spasms of neck Spasm of muscle Risk and functional assessment Screening for unspecified condition documented in this encounter Administered Medications Inactive Administered Medications - up to 3 most recent administrations Medication Order MAR Action Action Date Dose Rate Site keTORolac (Toradol) 30 MG/ML inj 30 mg 30 mg, Intramuscular, ONCE, On 04/10/24 at 1645, For 1 dose Given 04/10/2024 4:33 PM EDT 30 mg Hip R ight documented in this encounter Advance Directives * Full Code (Latest Code Status on File) Date Activated Date Inactivated Comments 05/19/2010 11:40 AM 05/21/2010 5:47 PM This order reflects the patients wishes and were consensually agreed upon. Care Teams Actuarial Director Relationship Specialty Start Date End Date Joceline Salter DO [address] [facility] [place] [address] PCP - General Family Medicine 10/14/23 documented as of this encounter
--- OUTSIDE RECORDS SUMMARY | 2024-08-21 00:20 | External Medical Summary | Summary of Care ---
Author Name Unknown Organization [facility] Address [address] [place] [address] Phone [phone] Care Team Providers Care Offbearer Sewer Pipe Name Role Phone Joceline Salter DO Primary Care Provider +1- [phone] Reason for Visit * Reason Comments Acute URI symptoms for pas t 2 weeks, thought allergies at first then started with low grade fever 5/4 and over that weekend, had vomiting and diarrhea for 1 day, dry to productive cough, nasal drainage has mostly been clean, SOB on exertion and wheezing, fatigued. Had negative home Covid test. Encounter Details Date Type Department Care Team (Late Contact Info) Description 03/06/2024 10:20 AM EDT [facility] [place] [address] [place] [address] Craig Escoto PA-C [address] [place], [place] [id number] Viral URI with cough* Allergies Active Allergy Reactions Criticality Noted Date Comments Atorvastatin 05/06/2023 Joint pain Carvedilol Psych complications 07/01/2023 Estrogens 03/30/2016 Hydrochlorothiazide Other (Please comment) 07/01/2023 Fatigue,visual problems,muscle weakness, Indapamide 10/07/2023 Increased BP, agitation, shaky Lisinopril Other (Please comment) 07/01/2023 Visual problems, muscle cramps, Morphine And Related Rash 04/17/2010 Morphine Sulfate 04/17/2010 Nausea and vomiting Oxycodone-Acetaminophen 04/17/2010 Hallucinations Fluoxetine Other (Please comment) 03/30/2016 Chest pain and difficulty breathing documented as of this encounter (statuses as of 03/06/2024) Medications Medication Sig Dispensed Refills Start Date End Date Status B-12 [address] under the tongue. 0 04/17/2010 Active IMODIUM A-D 2 MG PO TABS Take by mouth as needed. 0 Active Mometasone Furoate 0.1 % External Solution (Elocon)Indicatio ns:Plant allergic contact dermatitis Apply topically to affected area 1 Applicator daily . 60 mL 0 04/01/2022 Active Aspirin 81 MG Oral Tablet Chewable (Aspirin 81) Take 1 Tablet by mouth in the morning. 0 Active cloNIDine 0.2 MG/24HR Transdermal Patch Weekly (Catapres-Tts- 2)Indications:HTN , goal below 140/[address] 1 Patch topically on the skin once a week. 12 Patch 1 11/15/2023 Active OneTouch Verio In Vitro Strip (Glucose Blood)Indications :Hypoglycemia Use up to 4 times a day for hypoglycemia 100 Strip 11 11/15/2023 Active OneTouch Verio w/Device KitIndications:Hy poglycemia Use up to 4 times a day E11.9 1 Kit 0 11/15/2023 Active Premarin 0.625 MG/GM Vaginal Cream [...] > 160/100 45 Tablet 3 01/31/2024 Active Pseudoephedrine HCl 30 MG Oral Tablet (Sudafed) Take 1 Tablet by mouth every 4 hours as needed for Congestion. 0 4 Discontinue d(End of Procedure) documented as of this encounter (statuses as of 03/06/2024) Active Problems Problem Noted Date Diagnosed Date [...] as of this encounter (statuses as of 03/06/2024) Resolved Problems Problem Noted Date Diagnosed Date [...] as of this encounter (statuses as of 03/06/2024) Immunizations Name Administration Dates Next Due COVID-19 mRNA, LNP-s, No Pre serve, 2-Dose Series ([employer]) 08/21/2023,05/08/2022,08/30/2021,01/22,12/27/2020 Pneumococcal Conjugate Vacc, 13 Valent (Prevnar) [...] Sign Reading Time Taken Comments Blood Pressure 138/70 03/06/2024 10:28 AM EDT Pulse 74 03/06/2024 10:28 AM EDT Temperature 37.1 C (98.8 F) 03/06/2024 10:28 AM E DT Respiratory Rate 18 03/06/2024 10:28 AM EDT Oxygen Saturation 98% 03/06/2024 10:28 AM EDT Inhaled Oxygen Concentration - - Weight 66.7 kg (147 lb) 03/06/2024 10:28 AM EDT Height 161.3 cm (5' 3.5") 03/06/2024 10:28 AM ED T Body Mass Index 25.63 03/06/2024 10:28 AM EDT documented in this encounter Progress Notes * Craig Escoto PA-C - 03/06/2024 10:41 AM EDT Images from the original note were not included. History of Present Illness Diya Hawkins is a 73 year old female that presents for acute visi. URI symptoms for past 2 weeks, thought allergies at first then started with low grade fever 5/4 andover that weekend, had vomiting and diarrhea for 1 day, dry to productive cough, nasal drainage hasmostly been clean, SOB on exertion and wheezing, fatigued. Had negative home Covid test. Patient Active Problem List Diagnosis Code HTN, goal below 140/90 I10 Overweight (BMI 25.0-29.9) E66.3 Vaginal dryness N89.8 History of colon surgery Z98.890 Vitamin D deficiency E55.9 Mixed hyperlipidemia E78.2 Osteopenia of multiple sites M85.89 Double vision H53.2 History of TIA (transient ischemic attack) Z86.73 Review of patient's allergies indicates: Allergen Reactions Atorvastatin Joint pain Coreg [Carvedilol] Psych complications Estrogens Hydrochlorothiazide Other (Please comment) Fatigue,visual problems,muscle weakness, Indapamide Increased BP, agitation, shaky Lisinopril Other (Please comment) Visual problems, muscle cramps, Morphine And Related Rash Morphine Sulfate Nausea and vomiting Percocet [...] 1 Tablet by mouth in the morning. cloNIDine 0.2 MG/24HR Transdermal Patch Weekly (Catapres-Tts- [...] [place] [facility] [place] Clavicle fx repair INFORMATION 1997 Nevus sebacceous wendy removal LAP;W/HYSTERECTOMY Hysterectomy Complete PARTIAL REMOVAL OF COLON 12" removed REMOVAL OF APPENDIX Appendectomy REMOVE TONSILS & ADENOIDS, UNDER 12 Tonsillectomy/Adenoids,<12 Y/O REPAIR RECURRENT INGUINAL HERNIA 1995 Inguinal Hernia Repair, Recurrent Family History Problem Relation Age of Onset Lymphoma Mother Hypertension Mother Heart disease Father Stroke Father 89 Diabetes Brother 80 Breast Cancer Aunt (Unspecified) Cancer Uncle (Unspecified) Diabetes Brother 69 Hypertension Sister Scoliosis Sister Family Status Relation Status Mo Fa Bro MGMA MGFA PGMA PGFA AUNT UNCLE Bro Sis Alive Won Alive Won Alive Social History Socioeconomic History Marital status: Tobacco Use Smoking status: Former Smokeless tobacco: Never Tobacco comments: quit 33 years ago Vaping Use Vaping Use: Never used Substance and Sexual Activity Alcohol use: No Comment: stopped 1979 Drug use: No Sexual activity: Yes control/protection: Surgical Social Determinants of Health Food Insecurity: No Food Insecurity (02/01/2024) Hunger Vital Sign Worried About Running Out of Food in the Last Year: Never true Ran Out of Food in the Last Year: Never true Review of Systems Constitutional: Positive for fatigue and fever. Negative for chills. HENT: Positive for congestion, nosebleeds, postnasal drip, rhinorrhea, sinus pressure and sore throat. Negative for ear discharge, ear pain and sinus pain. Eyes: Negative. Respiratory: Positive for cough. Negative for shortness of breath. Cardiovascular: Negative. Negative for chest pain, palpitations and leg swelling. Gastrointestinal: Negative. Negative for abdominal pain, blood in stool, constipation, diarrhea, nausea and vomiting. Endocrine: Negative. Genitourinary: Negative. Musculoskeletal: Negative. Skin: Negative. Negative for rash. Allergic/Immunologic: Negative. Neurological: Negative. Negative for syncope and light-headedness. Hematological: Negative. Negative for adenopathy. Psychiatric/Behavioral: Negative. All other systems reviewed and are negative. Physical Exam BP 138/70 | Pulse 74 | Temp 37.1 C (98.8 F) | Resp 18 | Ht 1.613 m (5' 3.5") | Wt 66.7 kg (147 lb) | SpO2 98% | BMI 25.63 kg/m | BSA 1.73 m Physical Exam Vitals and nursing note reviewed. Constitutional: Appearance: Normal appearance. HENT: Head: Normocephalic and atraumatic. Right Ear: Ear canal and external ear normal. Left Ear: Ear canal and external ear normal. Ears: Comments: Mild serous otitis bilat Nose: Congestion and rhinorrhea present. Mouth/Throat: Mouth: Mucous membranes are moist. Pharynx: Oropharynx is clear. Posterior oropharyngeal erythema present. No oropharyngeal exudate. Eyes: Extraocular Movements: Extraocular movements intact. Conjunctiva/sclera: Conjunctivae normal. Pupils: Pupils are equal, round, and reactive to light. Cardiovascular: Rate and Rhythm: Normal rate and regular rhythm. Pulses: Normal pulses. Heart sounds: Murmur heard. Pulmonary: Effort: Pulmonary effort is normal. Breath sounds: Normal breath sounds. No wheezing, rhonchi or rales. Musculoskeletal: General: Normal range of motion. Cervical back: Normal range of motion and neck supple. Lymphadenopathy: Cervical: No cervical adenopathy. Skin: General: Skin is warm. Findings: No rash. Neurological: General: No focal deficit present. Mental Status: She is alert and oriented to person, place, and time. Psychiatric: Mood and Affect: Mood normal. Behavior: Behavior normal. Thought Content: Thought content normal. Judgment: Judgment normal. Assessment and Plan Viral URI with cough Symptoms consistent with viral upper respiratory infection. Symptoms has been present for about 10 days, progressively improving. Her cough is less productive. Still has some sinus congestion and drainage in addition to fatigue. Since her symptoms are progressively improving, encouraged supportive therapy as she has been doing. Avoid decongestants due to history of high blood pressure. Knows to call with worsening symptoms. Wrap-Up Follow Up: Return if symptoms worsen or fail to improve, for As scheduled. | For: As scheduled Time: I spent a total of 10-19 minutes (exact time 15 mins) on the date of service in preparation, delivery, and documentation of the care provided to Diya Hawkins excluding any time spent in the performance of separately billed services. documented in this encounter Nursing Notes * Ana Eubanks LPN - 03/06/2024 10:30 AM EDT Chief Complaint Patient presents with Acute URI symptoms for past 2 weeks, thought allergies at first then started with low grade fever 5/4 andover that weekend, had vomiting and diarrhea for 1 day, dry to productive cough, nasal drainage hasmostly been clean, SOB on exertion and wheezing, fatigued. Had negative home Covid test. documented in this encounter Miscellaneous Notes * Pt Handout (on AVS) - Craig Escoto PA-C - 03/06/2024 10:57 AM EDT [id number] Viral Upper Respiratory Illness (Adult) You have a viral upper respiratory illness (URI), which is another term for the common cold. This viral illness is contagious during the first few days. It's spread through the air by coughing and sneezing. It may also be spread by direct contact (touching the sick person and then touching your owneyes, nose, or mouth). Frequent handwashing will lower risk of spread. Most viral illnesses go awaywithin 7 to 10 days with rest and simple home remedies. Sometimes the illness may last for several weeks. Antibiotics will not kill a virus, and they are generally not prescribed for this condition. Home care If symptoms are severe, rest at home for the first 2 to 3 days or as advised. When you resume activity, don't let yourself get too tired. Don't smoke. If you need help stopping, talk with your healthcare provider. Stay away from cigarette smoke (yours or others?). You may use acetaminophen or ibuprofen to control pain and fever, unless another medicine was prescribed. Talk with your provider before taking these medicines if you have chronic liver or kidney disease. Also talk with your provider if you've had a stomach ulcer or digestive bleeding, or you take blood- thinning medicines. Never give aspirin to anyone under 18 years of age who is ill with a viral infection or fever. It may cause severe liver or brain damage, or even . Your appetite may be poor, so a light diet is OK. Stay well hydrated by drinking 6 to 8 glasses of fluids per day (water, soft drinks, juices, tea, or soup). Extra fluids will help loosen secretions in the nose and lungs. Asyw-xew-cutvblh cold medicines will not shorten the length of time you?re sick. But they may behelpful for cough, sore throat, and nasal and sinus congestion. If you take prescription medicines,ask your healthcare provider or pharmacist which xnng-bgh-msjuprt medicines are safe to use. Don't use decongestants, if you have high blood pressure, without first talking with your healthcare provider. If you are taking other prescribed medicine, contact your healthcare provider before taking any qmch-jpi-cbiyqii medicines. Follow-up care Follow up with your healthcare provider, or as advised. When to seek medical advice Call your healthcare provider right away if any of these occur: Cough with lots of colored sputum (mucus) Severe headache; face, neck, or ear pain Difficulty swallowing due to throat pain Fever of 100.4F (38C) or higher , or as directed by your healthcare provider Call 911 Call 911 if any of these occur: Chest pain, shortness of breath, wheezing, or difficulty breathing Coughing up blood Very severe pain with swallowing, especially if it goes along with a muffled voice Feeling of doom Feeling dizzy, faint, or confused Lips or skin is blue, purple or ayala in color Last Reviewed Date: 10/25/202119994238-9820 [employer]. All rights reserved. This information is not intended as a substitute for professional medical care. Always follow your healthcare professional's instructions. documented in this encounter Plan of Treatment Upcoming Encounters Date Type Department Care Team (Late st Contact Info) Description 04/17/2024 7:20 AM EDT [facility] [address] [facility] [place] [address] Rita Walker PA-C [address] [facility] [place] [address] 04/18/2024 8:30 AM EDT Cardiac Studies [facility] [address] [facility] [place] [address] 06/20/2024 2:00 PM EDT Office Visit [facility], [facility] [address] [facility] [place] [address] Carlito Nesbitt MD [address] [facility] [place] [address] 02/14/2025 8:00 AM EDT Office Visit [facility] [address] [facility] [place] [address] Joceline Salter DO [address] [facility] [place] [address] Health Maintenance Due Date Last Done Comments [...] as of this encounter Visit Diagnoses Diagnosis Viral URI with cough- Primary Acute upper respiratory infections of unspecified site documented in this encounter Advance Directives Latest Code Status on File Code Status Date Activated Date Inactivated Comments Full Code 05/19/2010 11:40 AM 05/21/2010 5:47 PM This order reflects the patients wishes and were consensually agreed upon. Care Teams Offbearer Sewer Pipe Relationship Specialty Start Date End Date Joceline Salter DO [address] [facility] [place] [address] PCP - General Family Medicine 10/14/23 documented as of this encounter
--- OUTSIDE RECORDS SUMMARY | 2024-08-21 00:20 | External Medical Summary | Summary of Care ---
Author Name Unknown Organization [facility] Address [address] [place] [address] Phone [phone] Care Team Providers Care Diploma Medical Assistant Name Role Phone Joceline Salter DO Primary Care Provider [phone]- [phone] Reason for Visit * Reason Onset Date Comments Multiple Complaints 04/08/2024 Encounter Details Date Type Department Care Team (Late st Contact Info) Description 04/08/2024 Telephone [facility] [place] [address] [place] [address] Awilda Solorio MD [address] [place] [address] Multiple Complaints Allergies Active Allergy Reactions Criticality Noted Date [...] as of this encounter (statuses as of 04/08/2024) Medications Medication Sig Dispensed Refills Start Date [...] as of this encounter (statuses as of 04/08/2024) Active Problems Problem Noted Date Diagnosed Date [...] as of this encounter (statuses as of 04/08/2024) Resolved Problems Problem Noted Date Diagnosed Date [...] as of this encounter (statuses as of 04/08/2024) Immunizations Name Administration Dates Next Due COVID-19 mRNA, LNP-s, No Pre serve, 2-Dose Series (Sendin[employer]) 08/21/2023,05/08/2022,08/30/2021,01/22,12/27/2020 Pneumococcal Conjugate Vacc, 13 Valent (Prevnar) [...] encounter Miscellaneous Notes * Telephone Encounter - Awilda Solorio MD - 04/08/2024 10:50 AM EDT I got a pager alert that Ms. Diya Hawkins wants to talk. I called her. She says her BP has been fluctuating since yesterday with readings ranging from 130s to 190s systolic. She has not feeling well and has been having jitteriness, headache, shortness of breath and is not feeling well. Her most recent BP reading was 193/99 mmHg. She has been using clonidine 0.1 mg patch. Not sure about other antihypertensive meds. Plan: - Advised her to go to nearby emergency as soon as possible so that she can be evaluated and managed further. She is likely having hypertensive urgency/emergency and needs further evaluation in hospital setting. - She endorsed and appreciated. Will be going to nearby emergency now. Awilda Solorio MD Fellow Nephrology [facility] documented in this encounter Plan of Treatment Upcoming Encounters Date Type Department Care Team (Keisha escalona Contact Info) Description 04/17/2024 7:20 AM EDT Office Visit Dermatology [address] [place] [address] [facility] [address] Rita Walker PA-C [address] [place] [address] 04/18/2024 8:30 AM EDT Cardiac Studies Cardiac Studies [address] [place] [address] [place] [address] 06/20/2024 2:00 PM EDT Office Visit [facility] [address] [place] [address] Carlito Nesbitt MD 200 [facility] [place] [address] 02/14/2025 8:00 AM EDT Office Visit Family Practice [address] [place] [address] [place] [address] Joceline Salter DO [address] [place] [address] Health Maintenance Due Date Last Done Comments [...] and were consensually agreed upon. Care Teams Diploma Medical Assistant Relationship Specialty Start Date End Date [facility] [address] [facility] [address] PCP - General Family Medicine 10/14/23 documented as of this encounter
--- OUTSIDE RECORDS SUMMARY | 2024-08-21 00:20 | External Medical Summary | Summary of Care ---
Author Name Unknown Organization [facility] Address [address] [place] [address] Phone [phone] Care Team Providers Care Office Rep Name Role Phone Joceline Salter DO Primary Care Provider +1- [phone] Reason for Visit * Reason Comments Medication Refill Encounter Details Date Type Department Care Team (Late st Contact Info) Description 04/06/2024 Refill [facility] [address] [place] [address] Tete Mullen MD [address] [place] [address] HTN, goal below 140/90* Allergies Active Allergy [...] as of this encounter (statuses as of 04/06/2024) Medications Medication Sig Dispensed Refills Start Date [...] a week. 12 Patch 1 04/06/2024 Active cloNIDine 0.2 MG/24HR Transdermal Patch Weekly (Catapres-Tts- 2)Indications:HTN , goal below 140/90 Place 1 Patch topically on the skin once a week. 12 Patch 1 11/15/2023 Discontinue d(Refill) documented as of this encounter (statuses as of 04/06/2024) Active Problems Problem Noted Date Diagnosed Date [...] as of this encounter (statuses as of 04/06/2024) Resolved Problems Problem Noted Date Diagnosed Date [...] as of this encounter (statuses as of 04/06/2024) Immunizations Name Administration Dates Next Due COVID-19 mRNA, LNP-s, No Pre serve, 2-Dose Series ([employer]) 08/21/2023,05/08/2022,08/30/2021,01/22,12/27/2020 Pneumococcal Conjugate Vacc, 13 Valent (Prevnar) [...] encounter Miscellaneous Notes * Telephone Encounter - Joceline Salter DO - 04/06/2024 3:32 PM EDTSigned Prescriptions: Disp Refills cloNIDine 0.2 MG/24HR Transdermal Patch We*12 Pat*1 Sig: Place 1 Patch topically on the skin once a week. Authorizing Provider: JOCELINE SALTER * Telephone Encounter - Ana Espinoza LPN - 04/06/2024 3:14 PM EDTPending Prescriptions: Disp Refills cloNIDine 0.2 MG/24HR Transdermal Patch We*12 Pat*1 Sig: Place 1 Patch topically on the skin once a week. * Telephone Encounter - Ana Espinoza LPN - 04/06/2024 3:13 PM EDT Pending Prescriptions: Disp Refills cloNIDine 0.2 MG/24HR Transdermal Patch W*12 Pat*1 Sig: Place 1 Patch topically on the skin once a week. Last Visit: 11/15/2023 (in office), Visit date not found (telemedicine) Next Visit: Visit date not found Last date the medication was ordered: 11/15/2023 Patient Active Problem List Diagnosis HTN, goal [...] 84 08/03/2023 08:00 AM CREATININE-OUTSIDE LAB 0.60 06/11/2023 12:00 AM Lab Results Component Value Date/Time POTASSIUM - [facility] 3.5 02/11/2024 09:01 AM POTASSIUM - [facility] 4.0 05/17/2020 07:21 AM POTASSIUM-OUTSIDE LAB 3.9 06/11/2023 12:00 AM Lab Results Component Value Date/Time [...] * Telephone Encounter - Renetta Guzmán - 04/06/2024 2:53 PM EDTPending Prescriptions: Disp Refills cloNIDine 0.2 MG/24HR Transdermal Patch We*12 Pat*1 Sig: Place 1 Patch topically on the skin once a week. documented in this encounter Plan of Treatment Upcoming Encounters Date Type Department Care Team (Late st Contact Info) Description 04/17/2024 7:20 AM EDT Office Visit Dermatology [facility] [address] [facility] [place] [address] Rita Walker PA-C [address] [facility] [place] [id number] 04/18/2024 8:30 AM EDT Cardiac Studies Cardiac Studies [place] [address] [place] [address] 06/20/2024 2:00 PM EDT Office Visit Nephrology, [facility] [place] [address] [facility] [place] [address] Carlito Nesbitt MD [address] [facility] [place] [address] 02/14/2025 8:00 AM EDT Office Visit Family Practice [address] [place] [address] Joceline Salter DO [address] [place] [address] Health Maintenance Due Date Last Done Comments [...] and were consensually agreed upon. Care Teams Office Rep Relationship Specialty Start Date End Date Joceline Salter DO [address] [facility] [place] [address] PCP - General Family Medicine 10/14/23 documented as of this encounter
[2024-08-21] MEDS: SODIUM CHLORIDE 0.9% 500 ML IV ONE (00:32)
--- NOTE | 2024-08-21 00:37 | Emergency Department Note ---
Impression & Plan Syncope, Sepsis, Fracture of distal end of right fibula, Presence of pessary ED Provider Note NAME: YURI GEE AGE: 74 SEX: F : 1950 ARRIVES VIA: Ambulance INFORMANT: Patient ED PROVIDER(S): Huey Gross MD CHIEF COMPLAINT: Syncope, fever, ankle pain. PLAN: Disposition: Admit MEDICAL DECISION MAKING: The patient is a 74-year-old woman who presents to the emergency department for evaluation after having a fainting episode in the bathroom where she fell onto her right ankle and has pain. She denies any head strike or loss of consciousness. Patient has been feeling sick for the past several days with low-grade fevers. Patient notes she did have a pessary placed for management of bladder prolapse on Wednesday by [facility] uro-gynecology. On evaluation patient is uncomfortable, febrile to 39.3 with heart in the 110s and less and otherwise stable. She appears clinically dry. She has tenderness of the right lateral ankle from the malleolus up to the lateral distal lower leg without gross deformity. She has pain with range of motion. Distal PMS intact. Abdomen is nontender. EKG without overt acute ischemia. CXR negative for acute cardiopulmonary process per my personal preliminary review/interpretation. WBC 14.6 K with neutrophilia but no left shift. H/H and platelets within normal limits. Chemistry without metabolic acidosis. LFTs unremarkable. Lactic acid 1.8, within normal limits. High-sensitivity troponin is 11.4, within normal limits. Lipase is not elevated. Respiratory BioFire is negative. CT of the head was negative for acute normalities. CT of the abdomen pelvis also negative for acute abnormalities. Urinalysis attempted by straight catheterization but patient was unable to tolerate/cooperate to obtain sample due to pain and irritation of the vulvar region with mild edema with scant amount of thin white discharge. The patient was treated with 1500 cc of normal saline for IV fluid hydration and remained hemodynamically stable. Empiric treatment for suspected urinary infection initiated with IV ceftriaxone. Given vulvar findings may have a component of yeast infection though less likely to cause severity of patient's illness with high fevers. The patient agreed with referral to the hospitalist service for further management. Right lower extremity splinted with Ortho-Glass splint by auto transmission technician. Case was discussed with Dr. Fair, [facility] hospitalist, who will evaluate the patient for admission. Further management per admitting team. Triage Nursing notes reviewed and agree them. Prior/external medical records reviewed Vital Signs: reviewed Differential diagnosis: Vasovagal event, dehydration, infection, hypoglycemia, electrolyte abnormalities, cardiac sources, intracerebral event, pulmonary embolism, seizure, toxicologic, neurologic, as well as other pathologies. ER treatment provided: See below. Diagnostics interpreted by me: ECG: Sinus tachycardia, 109 bpm, no ectopy, no overt ST elevation or depression, QTc 444, QRS 82. Cardiac Monitoring: An order for continuous cardiac monitoring was placed and demonstrated Sinus tachycardia, 109 bpm, no ectopy Laboratory studies: See below Imaging studies: See below Consultation(s): Case was discussed with Dr. Fair, [facility] Hospitalist, who will evaluate the patient for admission. HPI: The patient is a 74-year-old woman who presents to the emergency department for evaluation after having a fainting episode in the bathroom where she fell onto her right ankle and has pain. She denies any head strike or loss of consciousness. Patient has been feeling sick for the past several days with low-grade fevers. Patient notes she did have a pessary placed for management of bladder prolapse on Wednesday by [facility] uro-gynecology. ROS: See above HPI for pertinent positives & negatives. A total of 10 systems reviewed and were otherwise negative. VITALS:See Below PHYSICAL EXAMINATION: GENERAL: Awake, alert, fatigued-appearing, in no distress HENT: Normocephalic, atraumatic. Oropharynx with dry mucous membranes and otherwise unremarkable. EYES: Normal conjunctiva. Sclera non-icteric. NECK: Supple. No nuchal rigidity. FROM. No JVD. RESPIRATORY: Clear to auscultation. CARDIAC: Tachycardic rate, normal rhythm. Extremities warm and well perfused. Pulses equal. ABDOMEN: Soft, non-distended. No tenderness to palpation. No rebound or guarding. No masses. : Irritation of the vulvar region with mild edema with scant amount of thin white discharge. MUSCULOSKELETAL: Chest examination reveals no tenderness. The back is symmetrical on inspection without obvious abnormality. There is no CVA tenderness to palpation. Tenderness of the right lateral ankle from the malleolus up to the lateral distal lower leg without gross deformity. She has pain with range of motion. Distal PMS intact. LOWER EXTREMITIES: Calves are equal size bilaterally and non-tender. No edema. No discoloration. NEURO: Normal sensorium. No sensory or motor deficits noted. SKIN: No rash or jaundice noted. Huey Gross MD Past Med/Surg History Problem List (Updated 08/21/24 @ 06:50 by Huey Gross MD) Presence of pessary (Acute) Fracture of distal end of right fibula (Acute) Sepsis (Acute) Syncope (Acute) Sepsis Chest pain Social History Smoking Status: Never smoker Preferred Language: Urugu[place] Feels Safe at Home: Yes Allergies Allergies Allergy/AdvReac Type Severity Reaction Status Date / Time codeine Allergy Mild urticaria Verified 10/08/23 18:02 and hallucinations fluoxetine Allergy Unknown chest pain Verified 10/08/23 18:02 oxycodone Allergy Unknown UNKNOWN Verified 10/08/23 18:02 morphine AdvReac Intermediate Hallucinati Verified 10/08/23 18:02 ng amlodipine AdvReac hypertension,foot Verified 10/08/23 18:02 and leg cramps atorvastatin AdvReac Muscle Pain Verified 10/08/23 18:02 doxycycline AdvReac HTN and Verified 10/08/23 18:08 burning of hands indapamide AdvReac leg and Verified 10/08/23 18:02 foot cramps lisinopril AdvReac Hypertensio Verified 10/08/23 18:02 n losartan AdvReac Hypertensio Verified 10/08/23 18:02 n Home Meds Home Medications Medication Instructions Recorded Confirmed aspirin 81 mg tablet,delayed 81 mg PO DAILY 08/21/24 08/21/24 release chlorthalidone 25 mg tablet 12.5 mg PO DAILY 08/21/24 08/21/24 clonidine 0.2 mg/24 hr weekly 0.2 mg topical WK 08/21/24 08/21/24 transdermal patch clonidine HCl 0.1 mg tablet 0.1 mg PO UD PRN htn 08/21/24 08/21/24 conjugated estrogens 0.625 mg/gram 0.625 mg vaginal UD PRN Vaginal 08/21/24 08/21/24 vaginal cream (Premarin) Dryness Results & Data (ED) Vital Signs Vital Signs - 24 hr 08/21/24 00:12 08/21/24 00:21 08/21/24 02:00 Temperature 39.3 C H Temperature Source Oral Pulse Rate 107 H 112 H Pulse Rate [Apical] 101 H Pulse Rhythm [Apical] Regular Pulse Strength [Apical] Normal Respiratory Rate 18 18 Respiratory Effort / Characteristics Non-Labored Spontaneous Non-Labored Spontaneous Respiratory Depth Normal Normal Respiratory Pattern Regular Blood Pressure 118/78 Blood Pressure [Right Arm] 117/78 Blood Pressure Mean 91 Blood Pressure Mean [Right Arm] 91 Blood Pressure Position [Right Arm] Pulse Oximetry 98 98 Oxygen Delivery Method Room Air Room Air Sepsis Recent Fever Within 48 Hours Yes Sepsis New/Unexplained Change in Mental Status No Sepsis Action Taken by Nursing Physician Notified 08/21/24 03:33 08/21/24 04:21 08/21/24 05:00 Temperature Temperature Source Pulse Rate 96 H Pulse Rate [Apical] 96 H 97 H Pulse Rhythm [Apical] Regular Regular Pulse Strength [Apical] Normal Normal Respiratory Rate 18 18 Respiratory Effort / Characteristics Non-Labored Spontaneous Non-Labored Spontaneous Respiratory Depth Normal Normal Respiratory Pattern Regular Blood Pressure Blood Pressure [Right Arm] 110/65 114/67 Blood Pressure Mean Blood Pressure Mean [Right Arm] 80 82 Blood Pressure Position [Right Arm] Pulse Oximetry 100 98 Oxygen Delivery Method Room Air Room Air Sepsis Recent Fever Within 48 Hours Sepsis New/Unexplained Change in Mental Status Sepsis Action Taken by Nursing 08/21/24 05:37 08/21/24 07:00 Temperature 37.6 C H Temperature Source Oral Pulse Rate Pulse Rate [Apical] 92 H Pulse Rhythm [Apical] Regular Pulse Strength [Apical] Normal Respiratory Rate 18 Respiratory Effort / Characteristics Non-Labored Spontaneous Respiratory Depth Normal Respiratory Pattern Regular Blood Pressure Blood Pressure [Right Arm] 118/67 Blood Pressure Mean Blood Pressure Mean [Right Arm] 84 Blood Pressure Position [Right Arm] Lying Pulse Oximetry 96 Oxygen Delivery Method Room Air Sepsis Recent Fever Within 48 Hours Sepsis New/Unexplained Change in Mental Status Sepsis Action Taken by Nursing Laboratory Data Attestation: I reviewed the patient's lab results. 08/21/24 00:08 08/21/24 00:08 Lab Results 08/21/24 08/21/24 08/21/24 Range/Units 00:02 00:08 03:07 WBC 14.65 H (4.8-10.8) K/ul RBC 5.17 (4.20-5.40) M/uL Hgb 15.6 (12.0-16.0) g/dl Hct 44.5 (37.0-47.0) % MCV 86.1 (80.0-100.0) fL MCH 30.2 (25.0-34.0) pg MCHC 35.1 (32.0-36.0) g/dL RDW Std Deviation 38.5 (36.4-46.3) fL RDW Coeff of Ranjeet 12.2 (11.5-14.5) % Plt Count 222 (130-400) K/uL MPV 9.1 L (9.4-12.4) fL Immature Gran % (Auto) 0.7 % Neut % (Auto) 92.7 % Lymph % (Auto) 1.8 % [place] % (Auto) 4.1 % Eos % (Auto) 0.3 % Baso % (Auto) 0.4 % Neut # (Auto) 13.58 H (1.40-6.50) K/uL Lymph # (Auto) 0.26 L (1.20-3.40) K/uL [place] # (Auto) 0.60 H (0.11-0.59) K/uL Eos # (Auto) 0.05 (0.00-0.50) K/uL Baso # (Auto) 0.06 (0.00-0.20) K/uL Immature Gran # (Auto) 0.10 (0.01-0.20) K/uL PT 12.0 (9.0-12.0) Seconds INR 1.1 (0.9-1.1) Sodium 137 (136-145) mmol/L Potassium 3.8 (3.5-5.1) mmol/L Chloride 98 (98-107) mmol/L Carbon Dioxide 31 (21-32) mmol/L Anion Gap 8 (3-11) BUN 12 (6-23) mg/dl Creatinine 0.71 (0.6-1.2) mg/dl Est Cr Clr Drug Dosing 62.2 ml/min eGFR 88.06 BUN/Creatinine Ratio 16.9 (10-20) Glucose 162 H (70-99(Fasting)) mg/dl Lactate 1.8 (0.4-2.0) mmol/L Calcium 9.0 (8.6-10.3) mg/dl Phosphorus 2.3 L (2.5-4.9) mg/dl Magnesium 1.7 (1.7-2.4) mg/dl Total Bilirubin 1.6 H (0.2-1.0) mg/dl AST 16 (13-39) U/L ALT 10 (7-52) U/L Alkaline Phosphatase 48 (34-104) U/L Troponin I High Sens 11.4 (0-14) pg/ml Total Protein 6.6 (6.0-8.3) gm/dl Albumin 3.9 (3.4-5.0) gm/dl Globulin 2.7 (2.5-4.0) gm/dl Albumin/Globulin Ratio 1.4 (0.9-2) Lipase 9 L (11-82) U/L Procalcitonin Cancelled Adenovirus (PCR) Not Detected (NotDetected) B. pertussis DNA (PCR) Not Detected (NotDetected) B.parapertussis DNA PCR Not Detected (NotDetected) C. pneumoniae DNA (PCR) Not Detected (NotDetected) Coronavirus OC43 (PCR) Not Detected (NotDetected) Coronavirus HKU1 (PCR) Not Detected (NotDetected) Coronavirus 229E (PCR) Not Detected (NotDetected) SARS-CoV-2 (PCR) Not Detected (NotDetected) Coronavirus NL63 (PCR) Not Detected (NotDetected) Human Metapneumovir PCR Not Detected (NotDetected) Influenza Type A (PCR) Not Detected (NotDetected) Influenza Type B (PCR) Not Detected (NotDetected) M. pneumoniae (PCR) Not Detected (NotDetected) Parainfluenza 1 (PCR) Not Detected (NotDetected) Parainfluenza 2 (PCR) Not Detected (NotDetected) Parainfluenza 3 (PCR) Not Detected (NotDetected) Parainfluenza 4 (PCR) Not Detected (NotDetected) RSV (PCR) Not Detected (NotDetected) Entero/Rhino (PCR) Not Detected (NotDetected) Administered Medications Discontinued Medications Sodium Chloride (Nss) 500 mls @ 999 mls/hr IV .Q31M ONE Stop: 08/21/24 00:50 Last Infusion: 08/21/24 01:19 Dose: Infused Documented By: [facility] Admin: 08/21/24 00:32 Dose: 999 mls/hr Documented By: [facility] Acetaminophen (Ofirmev) 1,000 mg in 100 mls @ 400 mls/hr IV NOW STA Stop: 08/21/24 00:48 Last Infusion: 08/21/24 01:32 Dose: Infused Documented By: [facility] Admin: 08/21/24 01:17 Dose: 400 mls/hr Documented By: [facility] Sodium Chloride (Nss) 1,000 mls @ 999 mls/hr IV .Q1H1M ONE Stop: 08/21/24 02:40 Last Infusion: 08/21/24 03:34 Dose: Infused Documented By: [facility] Admin: 08/21/24 02:16 Dose: 999 mls/hr Documented By: [facility] Ceftriaxone Sodium (Rocephin) 2,000 mg in 50 mls @ 100 mls/hr IV NOW STA Stop: 08/21/24 03:12 Last Infusion: 08/21/24 03:57 Dose: Infused Documented By: [facility] Admin: 08/21/24 03:21 Dose: 100 mls/hr Documented By: [facility] Ioversol (Optiray 320 100ml) 100 ml IV ONCE ONE Stop: 08/21/24 02:07 Last Admin: 08/21/24 02:06 Dose: 93 ml Documented By: VLADIMIR Imaging Data Radiologist's Impression: Chest X-Ray 08/21/24 00:20 XR chest 1V portable HISTORY: 74 years-old Female Chest pain, nonspecific COMPARISON: 10/08/2023 TECHNIQUE: AP view of the chest FINDINGS: Cardiac silhouette is normal in size. No pneumothorax, pleural effusion or airspace consolidation. Sigmoidal thoracolumbar scoliosis. IMPRESSION: No acute process. ACT 112: Negative or not required by law. The above report was generated using voice recognition software. It may contain grammatical, syntax or spelling errors. Electronically signed by: Caden Masterson M.D. 08/21/2024 6:48 AM Ankle X-Ray 08/21/24 00:40 XR ankle RT min 3V routine CLINICAL HISTORY: Right ankle pain following fall. COMPARISON: None FINDINGS: There is an acute oblique minimally displaced fracture of the distal diaphysis of the right fibula. Fracture is displaced 3 mm. There is also an acute minimally displaced fracture of the medial malleolus. Mild medial ankle mortise widening is present. There is a possible acute nondisplaced posterior distal right tibial fracture. There is right ankle soft tissue swelling. IMPRESSION: 1. Acute oblique minimally displaced distal diaphyseal right fibular fracture. 2. Acute mildly displaced fracture of the medial malleolus and a possible acute nondisplaced fracture of the posterior distal right tibia. 3. Mild medial ankle mortise widening. 4. Ankle soft tissue swelling. ACT 112: Negative or not required by law. Electronically signed by: Hugo Curtis M.D. 08/21/2024 6:58 AM Abdomen/Pelvis CT 08/21/24 01:39 Exam(s): CT ABDOMEN + PELVIS With Contrast IV Amt: 93 ML OPTIRAY 320 EXAM: CT Abdomen and Pelvis With Intravenous Contrast CLINICAL HISTORY: Reason for exam: fever, syncope, vaginal discharge, pessary. TECHNIQUE: Axial computed tomography images of the abdomen and pelvis with intravenous contrast. CTDI is 48 mGy and DLP is 799 mGy-cm. Automated exposure control was utilized for the study. A dose lowering technique was utilized adhering to the principles of ALARA. CONTRAST: Patient received 93 ML OPTIRAY 320 of IV contrast COMPARISON: CT abdomen and pelvis October 08, 2023. FINDINGS: Lung bases: Unremarkable. No mass. No consolidation. ABDOMEN: Liver: Unremarkable. No mass. Gallbladder and bile ducts: Unremarkable. No calcified stones. No ductal dilation. Pancreas: Unremarkable. No mass. No ductal dilation. Spleen: Unremarkable. No splenomegaly. Adrenals: Unremarkable. No mass. Kidneys and ureters: Unremarkable. No solid mass. No hydronephrosis. Stomach and bowel: Diverticulosis, without acute diverticulitis. No small bowel obstruction. No free intraperitoneal air. PELVIS: Appendix: No findings to suggest acute appendicitis. Bladder: Unremarkable. No mass. Reproductive: Pessary in the pelvis. ABDOMEN and PELVIS: Intraperitoneal space: Unremarkable. No free air. No significant fluid collection. Bones/joints: Degenerative changes of the spine. Scoliosis. No acute fracture. No dislocation. Soft tissues: Unremarkable. Vasculature: Atherosclerotic changes of the aorta. No abdominal aortic aneurysm. Lymph nodes: Unremarkable. No enlarged lymph nodes. IMPRESSION: Diverticulosis, without acute diverticulitis. No small bowel obstruction. No free intraperitoneal air. Electronically signed by: Amanuel Ruiz MD 08/21/24 02:[address] 08/21/24 01:39 Exam(s): CT HEAD Without Contrast EXAM: CT Head Without Intravenous Contrast CLINICAL HISTORY: Reason for exam: syncope, fever. TECHNIQUE: Axial computed tomography images of the head/brain without intravenous contrast. CTDI is 48 mGy and DLP is 799 mGy-cm. Automated exposure control was utilized for the study. A dose lowering technique was utilized adhering to the principles of ALARA. COMPARISON: No relevant prior studies available. FINDINGS: No acute intracranial hemorrhage. No midline shift or mass effect. The territorial ayala-white matter differentiation is maintained throughout. The ventricles and sulci are commensurate with age. The visualized orbits appear grossly unremarkable. The calvarium is intact. The visualized paranasal sinuses and mastoid air cells are grossly clear. IMPRESSION: No acute intracranial hemorrhage, midline shift, or mass effect. Electronically signed by: Amanuel Ruiz MD 08/21/24 02:26 AM Discharge Plan Visit Data Chief Complaint: Syncope Stated Complaint: SYNCOPE, ANKLE PAIN ED Provider: Huey Gross Discharge Problem: Syncope, Sepsis, Fracture of distal end of right fibula, Presence of pessary Forms Stand Alone Forms: [employer] Prescriptions Prescriptions: No Action clonidine HCl 0.1 mg tablet 0.1 mg PO UD PRN (Reason: htn) Rx Instructions: TID prn BP > 160/100. Hold for HR <60. clonidine 0.2 mg/24 hr patch weekly 0.2 mg topical WK chlorthalidone 25 mg tablet 12.5 mg PO DAILY Premarin 0.625 mg/gram cream 0.625 mg vaginal UD PRN (Reason: Vaginal Dryness) aspirin 81 mg Tablet,Delayed Release (Dr/Ec) 81 mg PO DAILY Referrals Referrals: Morena Miles MD [Outside Practitioners] - Discharge Problem: Syncope Qualifiers: Syncope type: unspecified Qualified Code(s): R55 - Syncope and collapse Sepsis Qualifiers: Sepsis type: sepsis due to unspecified organism Sepsis acute organ dysfunction status: unspecified Qualified Code(s): A41.9 - Sepsis, unspecified organism Fracture of distal end of right fibula Qualifiers: Encounter type: initial encounter Fracture type: closed Fracture morphology: u nspecified fracture morphology Qualified Code(s): S82.831A - Other fracture of upper and lower end of right fibula, initial encounter for closed fracture
[2024-08-21 00:45] LABS: Hematocrit (blood only) 44.5 % (37.0-47.0); Hemoglobin 15.6 g/dl (12.0-16.0); Mean Corpuscular Hemoglobin 30.2 pg (25.0-34.0); Mean Corpuscular Hgb Conc 35.1 g/dL (32.0-36.0); Mean Corpuscular Volume 86.1 fL (80.0-100.0); Mean Platelet Volume 9.1 fL (9.4-12.4); Platelet Count 222 K/uL (130-400); RDW Coefficient of Variation 12.2 % (11.5-14.5); RDW Standard Deviation 38.5 fL (36.4-46.3); Red Blood Count 5.17 M/uL (4.20-5.40); White Blood Count 14.65 K/ul (4.8-10.8)
[2024-08-21 00:59] LABS: Albumin Globulin Ratio 1.4 (0.9-2); Albumin Level 3.9 gm/dl (3.4-5.0); BUN Creatinine Ratio 16.9 (10-20); Bilirubin,Total 1.6 mg/dl (0.2-1.0); Creatinine Clr Calc Pharmacy 62.2 ml/min; Globulin 2.7 gm/dl (2.5-4.0); Magnesium 1.7 mg/dl (1.7-2.4); Phosphorus 2.3 mg/dl (2.5-4.9); Potassium 3.8 mmol/L (3.5-5.1); Total Protein 6.6 gm/dl (6.0-8.3)
[2024-08-21 01:05] LABS: Troponin I High Sensitivity 11.4 pg/ml (0-14)
[2024-08-21 01:13] LABS: Basophils # (auto) 0.06 K/uL (0.00-0.20); Basophils % (auto) 0.4 %; Eosinophils # (auto) 0.05 K/uL (0.00-0.50); Eosinophils % (auto) 0.3 %; Immature Granulocytes % (auto) 0.7 %; Lymphocytes # (auto) 0.26 K/uL (1.20-3.40); Lymphocytes % (auto) 1.8 %; Monocytes % (auto) 4.1 %; Neutrophils # (auto) 13.58 K/uL (1.40-6.50); Neutrophils % (auto) 92.7 %
[2024-08-21] MEDS: ACETAMINOPHEN 1,000 MG/100 ML VIAL IV STA (01:17)
[2024-08-21 01:22] LABS: INR 1.1 (0.9-1.1)
[2024-08-21 01:58] LABS: Adenovirus PCR Not Detected (NotDetected); Bordetella parapertussis PCR Not Detected (NotDetected); Bordetella pertussis PCR Not Detected (NotDetected); Chlamydia pneumoniae PCR Not Detected (NotDetected); Coronavirus 229E PCR Not Detected (NotDetected); Coronavirus CoV-2 (COVID19)PCR Not Detected (NotDetected); Coronavirus HKU1 PCR Not Detected (NotDetected); Coronavirus NL63 PCR Not Detected (NotDetected); Coronavirus OC43PCR Not Detected (NotDetected); Human Metapneumovirus PCR Not Detected (NotDetected); Influenza A PCR Not Detected (NotDetected); Influenza B PCR Not Detected (NotDetected); Mycoplasma pneumoniae PCR Not Detected (NotDetected); Parainfluenza Virus 1 PCR Not Detected (NotDetected); Parainfluenza Virus 2 PCR Not Detected (NotDetected); Parainfluenza Virus 3 PCR Not Detected (NotDetected); Parainfluenza Virus 4 PCR Not Detected (NotDetected); Respiratory Syncytial VirusPCR Not Detected (NotDetected); Rhinovirus/Enterovirus PCR Not Detected (NotDetected)
[2024-08-21] MEDS: OPTIRAY 320 100ml IV ONE (02:06)
[2024-08-21] MEDS: SODIUM CHLORIDE 0.9% 1,000 ML IV ONE (02:16)
--- NOTE | 2024-08-21 02:27 | CT Scan Report ---
Exam(s): CT HEAD Without Contrast EXAM: CT Head Without Intravenous Contrast CLINICAL HISTORY: Reason for exam: syncope, fever. TECHNIQUE: Axial computed tomography images of the head/brain without intravenous contrast. CTDI is 48 mGy and DLP is 799 mGy-cm. Automated exposure control was utilized for the study. A dose lowering technique was utilized adhering to the principles of ALARA. COMPARISON: No relevant prior studies available. FINDINGS: No acute intracranial hemorrhage. No midline shift or mass effect. The territorial ayala-white matter differentiation is maintained throughout. The ventricles and sulci are commensurate with age. The visualized orbits appear grossly unremarkable. The calvarium is intact. The visualized paranasal sinuses and mastoid air cells are grossly clear. IMPRESSION: No acute intracranial hemorrhage, midline shift, or mass effect. Electronically signed by: Amanuel Ruiz MD 08/21/24 02:26 AM
--- NOTE | 2024-08-21 02:30 | CT Scan Report ---
Exam(s): CT ABDOMEN + PELVIS With Contrast IV Amt: 93 ML OPTIRAY 320 EXAM: CT Abdomen and Pelvis With Intravenous Contrast CLINICAL HISTORY: Reason for exam: fever, syncope, vaginal discharge, pessary. TECHNIQUE: Axial computed tomography images of the abdomen and pelvis with intravenous contrast. CTDI is 48 mGy and DLP is 799 mGy-cm. Automated exposure control was utilized for the study. A dose lowering technique was utilized adhering to the principles of ALARA. CONTRAST: Patient received 93 ML OPTIRAY 320 of IV contrast COMPARISON: CT abdomen and pelvis October 08, 2023. FINDINGS: Lung bases: Unremarkable. No mass. No consolidation. ABDOMEN: Liver: Unremarkable. No mass. Gallbladder and bile ducts: Unremarkable. No calcified stones. No ductal dilation. Pancreas: Unremarkable. No mass. No ductal dilation. Spleen: Unremarkable. No splenomegaly. Adrenals: Unremarkable. No mass. Kidneys and ureters: Unremarkable. No solid mass. No hydronephrosis. Stomach and bowel: Diverticulosis, without acute diverticulitis. No small bowel obstruction. No free intraperitoneal air. PELVIS: Appendix: No findings to suggest acute appendicitis. Bladder: Unremarkable. No mass. Reproductive: Pessary in the pelvis. ABDOMEN and PELVIS: Intraperitoneal space: Unremarkable. No free air. No significant fluid collection. Bones/joints: Degenerative changes of the spine. Scoliosis. No acute fracture. No dislocation. Soft tissues: Unremarkable. Vasculature: Atherosclerotic changes of the aorta. No abdominal aortic aneurysm. Lymph nodes: Unremarkable. No enlarged lymph nodes. IMPRESSION: Diverticulosis, without acute diverticulitis. No small bowel obstruction. No free intraperitoneal air. Electronically signed by: Amanuel Ruiz MD 08/21/24 02:30 AM
[2024-08-21] MEDS: cefTRIAXone SODIUM 2,000 MG/50 ML BAG IV STA (03:21)
--- NOTE | 2024-08-21 05:14 | History & Physical Report ---
Date of Service August 21, 2024 Assessment & Plan (1) Sepsis: Plan: 74-year-old female with past medical history significant for hypertension, hyperlipidemia, vitamin D deficiency, vaginal dryness, stress urine incontinence, osteopenia, history of colon surgery, history of TIA comes because of sepsis and syncope. Patient was having cystocele with prolapse and stress urinary incontinence saw urogynecology last Wednesday. There is a plan for surgery in first week of September and meanwhile pessary was placed on last Wednesday by urogynecology. Since Wednesday she was having temperatures. She is also having soreness, itchiness and discharge in the vulval region. As it was not getting better she called [facility] and got appointment today on Wednesday at 3:30 PM with urogynecology. But yesterday she was very sick. She was having nausea. Dizzy. She was laying in the bed all day. Poor appetite. And when she went to bathroom around 4 PM she saw dots and she passed out for short period of time. Does not think she hit her head. Her heard noise and when he came to check her she was awake but confused for some time. She could not get up as her right leg was hurting. Her daughter and her lives close by and they came and helped her cleaned up and get to the the bed and called EMS and brought in here. Currently alert and awake. Denies any headache. No blurred vision. No runny nose. No sore throat or cough. Denies any chest pain or shortness of breath. No abdominal pain. Normal bowel movements. Could not able to give urine sample so far. Refused straight cath because of soreness in vulval region. Denies any hematuria. Currently hemodynamics are okay. Sepsis Meets criteria for sepsis with temp spike, tachycardia and elevated WBC Lactic acid okay at 1.8 Blood pressure is okay Most likely UTI Urinalysis pending cxr ok. resp biofire negative ER gave Rocephin Will continue with Zosyn, IV fluids Recently pessary was placed for cystocele and since then having itchiness, soreness and vaginal discharge. Will consult gynecology for evaluation and further recommendations ct abd/pelvis no acute findings Monitor hemodynamics Follow the cultures Close monitor Syncope and fall Mostly from sepsis Nauseous and dizzy and poor appetite yesterday EKG no acute findings and troponin negative Ct head ok. Will follow serial cardiac enzymes and echo Monitoring telemetry Right tibia/fibula fracture From the fall from syncope S/p splint in the ER Ortho consult Hypertension On clonidine patch (because of allergies )which will be continued for now and close monitor Will hold chlorthalidone Patient is also on clonidine p.o. as needed which will be held Close monitor History of TIA On aspirin Elevated total bilirubin at 1.6 AST ALT okay Will follow repeat labs Mild hypophosphatemia Will replace Follow repeat labs DVT prophylaxis Lovenox Disposition Telemetry Full code. History of Present Illness Chief Complaint: Sepsis and syncope Primary Care Provider: NO PCP 74-year-old female with past medical history significant for hypertension, hype rlipidemia, vitamin D deficiency, vaginal dryness, stress urine incontinence, osteopenia, history of colon surgery, history of TIA comes because of sepsis and syncope. Patient was having cystocele with prolapse and stress urinary incontinence saw urogynecology last Wednesday. There is a plan for surgery in first week of September and meanwhile pessary was placed on last Wednesday by urogynecology. Since Wednesday she was having temperatures. She is also having soreness, itchiness and discharge in the vulval region. As it was not getting better she called [facility] and got appointment today on Wednesday at 3:30 PM with urogynecology. But yesterday she was very sick. She was having nausea. Dizzy. She was laying in the bed all day. Poor appetite. And when she went to bathroom around 4 PM she saw dots and she passed out for short period of time. Does not think she hit her head. Her heard noise and when he came to check her she was awake but confused for some time. She could not get up as her right leg was hurting. Her daughter and her lives close by and they came and helped her cleaned up and get to the the bed and called EMS and brought in here. Currently alert and awake. Denies any headache. No blurred vision. No runny nose. No sore throat or cough. Denies any chest pain or shortness of breath. No abdominal pain. Normal bowel movements. Could not able to give urine sample so far. Refused straight cath because of soreness in vulval region. Denies any hematuria. Currently hemodynamics are okay. Past medical history. As mentioned above Past surgical history. Cystoscopy with ureteral stent. Clavicle fracture repair. Laparoscopic hysterectomy. Partial removal of colon. Appendectomy. Tonsillectomy and adenoidectomy. Inguinal hernia repair. Social history. . Quit smoking 33 years ago. No alcohol use. No drug use. Family history. Aunt had breast cancer. Uncle had cancer. Brother has diabetes. Father had heart disease. Stroke. Mother had hypertension. Lymphoma. Sister has hypertension. Scoliosis. Allergies Allergy/AdvReac Type Severity Reaction Status Date / Time codeine Allergy Mild urticaria Verified 10/08/23 18:02 and hallucinations fluoxetine Allergy Unknown chest pain Verified 10/08/23 18:02 oxycodone Allergy Unknown UNKNOWN Verified 10/08/23 18:02 morphine AdvReac Intermediate Hallucinati Verified 10/08/23 18:02 ng amlodipine AdvReac hypertension,foot Verified 10/08/23 18:02 and leg cramps atorvastatin AdvReac Muscle Pain Verified 10/08/23 18:02 doxycycline AdvReac HTN and Verified 10/08/23 18:08 burning of hands indapamide AdvReac leg and Verified 10/08/23 18:02 foot cramps lisinopril AdvReac Hypertensio Verified 10/08/23 18:02 n losartan AdvReac Hypertensio Verified 10/08/23 18:02 n Home Medications Medication Instructions Recorded Confirmed Type aspirin 81 mg tablet,delayed 81 mg PO DAILY 08/21/24 08/21/24 History release chlorthalidone 25 mg tablet 12.5 mg PO DAILY 08/21/24 08/21/24 History clonidine 0.2 mg/24 hr weekly 0.2 mg topical WK 08/21/24 08/21/24 History transdermal patch clonidine HCl 0.1 mg tablet 0.1 mg PO UD PRN htn 08/21/24 08/21/24 History conjugated estrogens 0.625 mg/gram 0.625 mg vaginal UD PRN Vaginal 08/21/24 08/21/24 History vaginal cream (Premarin) Dryness Past Med/Surg History Problem List (Updated 08/21/24 @ 06:50 by Huey Gross MD) Presence of pessary (Acute) Fracture of distal end of right fibula (Acute) Sepsis (Acute) Syncope (Acute) Sepsis Chest pain Social History Smoking Status: Former smoker Hx Alcohol Use: No Hx Substance Use: No Preferred Language: Argentine Communication Ability: Effective Assistant Media Planner Required: No Beliefs That Will Affect Care: None Current Living Situation: Spouse Other Information That Helps Us Care for You: No Feels Safe at Home: Yes Safety Concerns: Feels Safe At This Time Assistive Devices: Glasses Review of Systems Review of Systems: All systems reviewed & are unremarkable except as noted in HPI & below Physical Exam Physical Exam: General- adult Head- atraumatic Eyes- PERRL. ENT- oropharynx clear Neck- supple, no JVD. Lungs- clear to auscultation no wheezing or crackles Heart- regular rhythm; tachycardia no murmur, no gallop. Abdomen- normal bowel sounds, soft, nontender, no distension Extremities- right leg in splint, no edema or erythema in left leg. Neuro- alert, oriented PERRL, no facial palsy; no dysarthria; moves extremities except right leg which is in splint Results & Data Results & Data Vital Signs (Past 12 Hours) Vital Signs Temp Pulse Pulse Resp BP BP Pulse Ox 08/21/24 04:21 96 H 08/21/24 03:33 96 H 18 110/65 100 08/21/24 02:00 101 H 18 117/78 98 08/21/24 00:21 112 H 08/21/24 00:12 39.3 C H 107 H 18 118/78 98 O2 Del Method 08/21/24 04:21 08/21/24 03:33 Room Air 08/21/24 02:00 Room Air 08/21/24 00:21 08/21/24 00:12 Room Air Diagnostic Findings Laboratory Results WBC 14.65 K/ul (4.8-10.8) H 08/21/24 00:08 RBC 5.17 M/uL (4.20-5.40) 08/21/24 00:08 Hgb 15.6 g/dl (12.0-16.0) 08/21/24 00:08 Hct 44.5 % (37.0-47.0) 08/21/24 00:08 MCV 86.1 fL (80.0-100.0) 08/21/24 00:08 MCH 30.2 pg (25.0-34.0) 08/21/24 00:08 MCHC 35.1 g/dL (32.0-36.0) 08/21/24 00:08 RDW Std Deviation 38.5 fL (36.4-46.3) 08/21/24 00:08 RDW Coeff of Ranjeet 12.2 % (11.5-14.5) 08/21/24 00:08 Plt Count 222 K/uL (130-400) 08/21/24 00:08 MPV 9.1 fL (9.4-12.4) L 08/21/24 00:08 Immature Gran % (Auto) 0.7 % 08/21/24 00:08 Neut % (Auto) 92.7 % 08/21/24 00:08 Lymph % (Auto) 1.8 % 08/21/24 00:08 [place] % (Auto) 4.1 % 08/21/24 00:08 Eos % (Auto) 0.3 % 08/21/24 00:08 Baso % (Auto) 0.4 % 08/21/24 00:08 Neut # (Auto) 13.58 K/uL (1.40-6.50) H 08/21/24 00:08 Lymph # (Auto) 0.26 K/uL (1.20-3.40) L 08/21/24 00:08 [place] # (Auto) 0.60 K/uL (0.11-0.59) H 08/21/24 00:08 Eos # (Auto) 0.05 K/uL (0.00-0.50) 08/21/24 00:08 Baso # (Auto) 0.06 K/uL (0.00-0.20) 08/21/24 00:08 Immature Gran # (Auto) 0.10 K/uL (0.01-0.20) 08/21/24 00:08 PT 12.0 Seconds (9.0-12.0) 08/21/24 00:08 INR 1.1 (0.9-1.1) 08/21/24 00:08 Sodium 137 mmol/L (136-145) 08/21/24 00:08 Potassium 3.8 mmol/L (3.5-5.1) 08/21/24 00:08 Chloride 98 mmol/L (98-107) 08/21/24 00:08 Carbon Dioxide 31 mmol/L (21-32) 08/21/24 00:08 Anion Gap 8 (3-11) 08/21/24 00:08 BUN 12 mg/dl (6-23) 08/21/24 00:08 Creatinine 0.71 mg/dl (0.6-1.2) 08/21/24 00:08 Est Cr Clr Drug Dosing 62.2 ml/min 08/21/24 00:08 eGFR 88.06 08/21/24 00:08 BUN/Creatinine Ratio 16.9 (10-20) 08/21/24 00:08 Glucose 162 mg/dl (70-99(Fasting)) H 08/21/24 00:08 Lactate 1.8 mmol/L (0.4-2.0) 08/21/24 03:07 Calcium 9.0 mg/dl (8.6-10.3) 08/21/24 00:08 Phosphorus 2.3 mg/dl (2.5-4.9) L 08/21/24 00:08 Magnesium 1.7 mg/dl (1.7-2.4) 08/21/24 00:08 Total Bilirubin 1.6 mg/dl (0.2-1.0) H 08/21/24 00:08 AST 16 U/L (13-39) 08/21/24 00:08 ALT 10 U/L (7-52) 08/21/24 00:08 Alkaline Phosphatase 48 U/L (34-104) 08/21/24 00:08 Troponin I High Sens 11.4 pg/ml (0-14) 08/21/24 00:08 Total Protein 6.6 gm/dl (6.0-8.3) 08/21/24 00:08 Albumin 3.9 gm/dl (3.4-5.0) 08/21/24 00:08 Globulin 2.7 gm/dl (2.5-4.0) 08/21/24 00:08 Albumin/Globulin Ratio 1.4 (0.9-2) 08/21/24 00:08 Lipase 9 U/L (11-82) L 08/21/24 00:08 Procalcitonin Cancelled 08/21/24 00:08 Adenovirus (PCR) Not Detected (NotDetected) 08/21/24 00:02 B. pertussis DNA (PCR) Not Detected (NotDetected) 08/21/24 00:02 B.parapertussis DNA PCR Not Detected (NotDetected) 08/21/24 00:02 C. pneumoniae DNA (PCR) Not Detected (NotDetected) 08/21/24 00:02 Coronavirus OC43 (PCR) Not Detected (NotDetected) 08/21/24 00:02 Coronavirus HKU1 (PCR) Not Detected (NotDetected) 08/21/24 00:02 Coronavirus 229E (PCR) Not Detected (NotDetected) 08/21/24 00:02 SARS-CoV-2 (PCR) Not Detected (NotDetected) 08/21/24 00:02 Coronavirus NL63 (PCR) Not Detected (NotDetected) 08/21/24 00:02 Human Metapneumovir PCR Not Detected (NotDetected) 08/21/24 00:02 Influenza Type A (PCR) Not Detected (NotDetected) 08/21/24 00:02 Influenza Type B (PCR) Not Detected (NotDetected) 08/21/24 00:02 M. pneumoniae (PCR) Not Detected (NotDetected) 08/21/24 00:02 Parainfluenza 1 (PCR) Not Detected (NotDetected) 08/21/24 00:02 Parainfluenza 2 (PCR) Not Detected (NotDetected) 08/21/24 00:02 Parainfluenza 3 (PCR) Not Detected (NotDetected) 08/21/24 00:02 Parainfluenza 4 (PCR) Not Detected (NotDetected) 08/21/24 00:02 RSV (PCR) Not Detected (NotDetected) 08/21/24 00:02 Entero/Rhino (PCR) Not Detected (NotDetected) 08/21/24 00:02 Impressions Abdomen/Pelvis CT 08/21/24 01:39 Exam(s): CT ABDOMEN + PELVIS With Contrast IV Amt: 93 ML OPTIRAY 320 EXAM: CT Abdomen and Pelvis With Intravenous Contrast CLINICAL HISTORY: Reason for exam: fever, syncope, vaginal discharge, pessary. TECHNIQUE: Axial computed tomography images of the abdomen and pelvis with intravenous contrast. CTDI is 48 mGy and DLP is 799 mGy-cm. Automated exposure control was utilized for the study. A dose lowering technique was utilized adhering to the principles of ALARA. CONTRAST: Patient received 93 ML OPTIRAY 320 of IV contrast COMPARISON: CT abdomen and pelvis October 08, 2023. FINDINGS: Lung bases: Unremarkable. No mass. No consolidation. ABDOMEN: Liver: Unremarkable. No mass. Gallbladder and bile ducts: Unremarkable. No calcified stones. No ductal dilation. Pancreas: Unremarkable. No mass. No ductal dilation. Spleen: Unremarkable. No splenomegaly. Adrenals: Unremarkable. No mass. Kidneys and ureters: Unremarkable. No solid mass. No hydronephrosis. Stomach and bowel: Diverticulosis, without acute diverticulitis. No small bowel obstruction. No free intraperitoneal air. PELVIS: Appendix: No findings to suggest acute appendicitis. Bladder: Unremarkable. No mass. Reproductive: Pessary in the pelvis. ABDOMEN and PELVIS: Intraperitoneal space: Unremarkable. No free air. No significant fluid collection. Bones/joints: Degenerative changes of the spine. Scoliosis. No acute fracture. No dislocation. Soft tissues: Unremarkable. Vasculature: Atherosclerotic changes of the aorta. No abdominal aortic aneurysm. Lymph nodes: Unremarkable. No enlarged lymph nodes. IMPRESSION: Diverticulosis, without acute diverticulitis. No small bowel obstruction. No free intraperitoneal air. Electronically signed by: Amanuel Ruiz MD 08/21/24 02:[address] 08/21/24 01:39 Exam(s): CT HEAD Without Contrast EXAM: CT Head Without Intravenous Contrast CLINICAL HISTORY: Reason for exam: syncope, fever. TECHNIQUE: Axial computed tomography images of the head/brain without intravenous contrast. CTDI is 48 mGy and DLP is 799 mGy-cm. Automated exposure control was utilized for the study. A dose lowering technique was utilized adhering to the principles of ALARA. COMPARISON: No relevant prior studies available. FINDINGS: No acute intracranial hemorrhage. No midline shift or mass effect. The territorial ayala-white matter differentiation is maintained throughout. The ventricles and sulci are commensurate with age. The visualized orbits appear grossly unremarkable. The calvarium is intact. The visualized paranasal sinuses and mastoid air cells are grossly clear. IMPRESSION: No acute intracranial hemorrhage, midline shift, or mass effect. Electronically signed by: Amanuel Ruiz MD 08/21/24 02:26 AM ECG Additional Comments: ECG. Sinus tachycardia rate of 109. Possible left atrial enlargement. QTc 444 Code Status & VTE Plan VTE Prophylaxis Plan VTE Prophylaxis will be ordered: Yes
--- NOTE | 2024-08-21 06:50 | XRay Report ---
XR chest 1V portable HISTORY: 74 years-old Female Chest pain, nonspecific COMPARISON: 10/08/2023 TECHNIQUE: AP view of the chest FINDINGS: Cardiac silhouette is normal in size. No pneumothorax, pleural effusion or airspace consolidation. Si gmoidal thoracolumbar scoliosis. IMPRESSION: No acute process. ACT 112: Negative or not required by law. The above report was generated using voice recognition software. It may contain grammatical, syntax o r spelling errors. Electronically signed by: Caden Masterson M.D. 08/21/2024 6:48 AM
--- NOTE | 2024-08-21 07:00 | XRay Report ---
XR ankle RT min 3V routine CLINICAL HISTORY: Right ankle pain following fall. COMPARISON: None FINDINGS: There is an acute oblique minimally displaced fracture of the distal diaphysis of the righ t fibula. Fracture is displaced 3 mm. There is also an acute minimally displaced fracture of the medi al malleolus. Mild medial ankle mortise widening is present. There is a possible acute nondisplaced p osterior distal right tibial fracture. There is right ankle soft tissue swelling. IMPRESSION: 1. Acute oblique minimally displaced distal diaphyseal right fibular fracture. 2. Acute mildly displaced fracture of the medial malleolus and a possible acute nondisplaced fracture of the posterior distal right tibia. 3. Mild medial ankle mortise widening. 4. Ankle soft tissue swelling. ACT 112: Negative or not required by law. Electronically signed by: Hugo Curtis M.D. 08/21/2024 6:58 AM
[2024-08-21] MEDS ORDERED: POTASSIUM PHOS 3 MMOL/1 ML INFUSION IV STA (08:19)
[2024-08-21] MEDS ORDERED: NITROGLYCERIN SL 0.4 MG/TAB TAB SL PRN (08:19)
[2024-08-21] MEDS: CHECK CLONIDINE PATCH PLACEMENT SCH (09:29)
[2024-08-21] MEDS: PIPERACILLIN/TAZOBACTAM 4.5 GM/100 ML BAG IV ONE (09:29)
[2024-08-21] MEDS: SODIUM CHLORIDE 0.9% 1,000 ML IV SCH (09:31)
[2024-08-21] MEDS: POT PHOSPHATE MONOBASIC W/ SOD TAB PO SCH (09:32)
[2024-08-21] MEDS: ASPIRIN 81 MG ECTAB PO SCH (09:35)
[2024-08-21] MEDS: ENOXAPARIN INJ 40 MG/0.4 ML SYR SQ SCH (09:35)
[2024-08-21] MEDS ORDERED: Nursing to Pharmacy Communication SCH (10:00)
--- NOTE | 2024-08-21 10:52 | Consultation ---
Date of Consultation August 21, 2024 Assessment & Plan (1) Presence of pessary: remove pessary due to urosepsis (2) Fracture of distal end of right fibula: History of Present Illness Requesting Physician: Dr. Fair Reason for Consultation: Vaginal pessary Attending Physician: Freeman Whipple MD History of Present Illness 74-year-old female para 2-0-0-2 presents to the ER today with a syncopal episode at home fell in the bathroom after feeling dizzy and lightheaded. The patient was admitted for urosepsis with syncope possible TIA she is on blood pressure medication. The patient had a pessary placed by Dr. Ojeda at [facility] this past Wednesday and did not feel well over the weekend. She c/o vaginal discharge without bleeding. She is scheduled for surgery with Dr. Ojeda for bladder prolapse sometime in September. She states the pessary was very difficult to place and very uncomfortable upon placenment. Allergies Allergy/AdvReac Type Severity Reaction Status Date / Time codeine Allergy Mild urticaria Verified 10/08/23 18:02 and hallucinations fluoxetine Allergy Unknown chest pain Verified 10/08/23 18:02 oxycodone Allergy Unknown UNKNOWN Verified 10/08/23 18:02 morphine AdvReac Intermediate Hallucinati Verified 10/08/23 18:02 ng amlodipine AdvReac hypertension,foot Verified 10/08/23 18:02 and leg cramps atorvastatin AdvReac Muscle Pain Verified 10/08/23 18:02 doxycycline AdvReac HTN and Verified 10/08/23 18:08 burning of hands indapamide AdvReac leg and Verified 10/08/23 18:02 foot cramps lisinopril AdvReac Hypertensio Verified 10/08/23 18:02 n losartan AdvReac Hypertensio Verified 10/08/23 18:02 n Home Medications Medication Instructions Recorded Confirmed Type aspirin 81 mg tablet,delayed 81 mg PO DAILY 08/21/24 08/21/24 History release chlorthalidone 25 mg tablet 12.5 mg PO DAILY 08/21/24 08/21/24 History clonidine 0.2 mg/24 hr weekly 0.2 mg topical WK 08/21/24 08/21/24 History transdermal patch clonidine HCl 0.1 mg tablet 0.1 mg PO UD PRN htn 08/21/24 08/21/24 History conjugated estrogens 0.625 mg/gram 0.625 mg vaginal UD PRN Vaginal 08/21/24 08/21/24 History vaginal cream (Premarin) Dryness Patient History Social History Smoking Status: Former smoker Hx Alcohol Use: No Hx Substance Use: No Preferred Language: Mohawk Communication Ability: Effective Criminal Justice Program Director Required: No Beliefs That Will Affect Care: None Current Living Situation: Spouse Other Information That Helps Us Care for You: No Feels Safe at Home: Yes Safety Concerns: Feels Safe At This Time Assistive Devices: Glasses Review of Systems Review of Systems: All systems reviewed & are unremarkable except as noted in HPI & below Physical Exam Constitutional: WD/WN, vitals as above Genitourinary: no vaginal lesions, no adnexal mass Pessary removed intact. Noted was vaginal discharge and no bleeding post rmoveal of pessary. This was not replaced. Cultures done by nurse. Vulva and perineum noted to have erythema throughout. Results & Data Vital Signs (Past 12 Hours) Vital Signs Temp Pulse Pulse Resp BP BP Pulse Ox 08/21/24 08:19 37.1 C 98 H 16 121/73 94 08/21/24 07:00 92 H 18 118/67 96 08/21/24 05:37 37.6 C H 08/21/24 05:00 97 H 18 114/67 98 08/21/24 04:21 96 H 08/21/24 03:33 96 H 18 110/65 100 08/21/24 02:00 101 H 18 117/78 98 08/21/24 00:21 112 H 08/21/24 00:12 39.3 C H 107 H 18 118/78 98 O2 Del Method 08/21/24 08:19 Room Air 08/21/24 07:00 Room Air 08/21/24 05:37 08/21/24 05:00 Room Air 08/21/24 04:21 08/21/24 03:33 Room Air 08/21/24 02:00 Room Air 08/21/24 00:21 08/21/24 00:12 Room Air Laboratory Results Laboratory Results - last 72 hr 08/21/24 08/21/24 08/21/24 00:02 00:08 03:07 WBC 14.65 H RBC 5.17 Hgb 15.6 Hct 44.5 MCV 86.1 MCH 30.2 MCHC 35.1 RDW Std Deviation 38.5 RDW Coeff of Ranjeet 12.2 Plt Count 222 MPV 9.1 L Immature Gran % (Auto) 0.7 Neut % (Auto) 92.7 Lymph % (Auto) 1.8 [place] % (Auto) 4.1 Eos % (Auto) 0.3 Baso % (Auto) 0.4 Neut # (Auto) 13.58 H Lymph # (Auto) 0.26 L [place] # (Auto) 0.60 H Eos # (Auto) 0.05 Baso # (Auto) 0.06 Immature Gran # (Auto) 0.10 PT 12.0 INR 1.1 Sodium 137 Potassium 3.8 Chloride 98 Carbon Dioxide 31 Anion Gap 8 BUN 12 Creatinine 0.71 Est Cr Clr Drug Dosing 62.2 eGFR 88.06 BUN/Creatinine Ratio 16.9 Glucose 162 H Lactate 1.8 Calcium 9.0 Phosphorus 2.3 L Magnesium 1.7 Total Bilirubin 1.6 H AST 16 ALT 10 Alkaline Phosphatase 48 Troponin I High Sens 11.4 Total Protein 6.6 Albumin 3.9 Globulin 2.7 Albumin/Globulin Ratio 1.4 Lipase 9 L Procalcitonin Cancelled Adenovirus (PCR) Not Detected B. pertussis DNA (PCR) Not Detected B.parapertussis DNA PCR Not Detected C. pneumoniae DNA (PCR) Not Detected Coronavirus OC43 (PCR) Not Detected Coronavirus HKU1 (PCR) Not Detected Coronavirus 229E (PCR) Not Detected SARS-CoV-2 (PCR) Not Detected Coronavirus NL63 (PCR) Not Detected Human Metapneumovir PCR Not Detected Influenza Type A (PCR) Not Detected Influenza Type B (PCR) Not Detected M. pneumoniae (PCR) Not Detected Parainfluenza 1 (PCR) Not Detected Parainfluenza 2 (PCR) Not Detected Parainfluenza 3 (PCR) Not Detected Parainfluenza 4 (PCR) Not Detected RSV (PCR) Not Detected Entero/Rhino (PCR) Not Detected 08/21/24 09:31 WBC RBC Hgb Hct MCV MCH MCHC RDW Std Deviation RDW Coeff of Ranjeet Plt Count MPV Immature Gran % (Auto) Neut % (Auto) Lymph % (Auto) [place] % (Auto) Eos % (Auto) Baso % (Auto) Neut # (Auto) Lymph # (Auto) [place] # (Auto) Eos # (Auto) Baso # (Auto) Immature Gran # (Auto) PT INR Sodium Potassium Chloride Carbon Dioxide Anion Gap BUN Creatinine Est Cr Clr Drug Dosing eGFR BUN/Creatinine Ratio Glucose Lactate Calcium Phosphorus Magnesium Total Bilirubin AST ALT Alkaline Phosphatase Troponin I High Sens 10.0 Total Protein Albumin Globulin Albumin/Globulin Ratio Lipase Procalcitonin Adenovirus (PCR) B. pertussis DNA (PCR) B.parapertussis DNA PCR C. pneumoniae DNA (PCR) Coronavirus OC43 (PCR) Coronavirus HKU1 (PCR) Coronavirus 229E (PCR) SARS-CoV-2 (PCR) Coronavirus NL63 (PCR) Human Metapneumovir PCR Influenza Type A (PCR) Influenza Type B (PCR) M. pneumoniae (PCR) Parainfluenza 1 (PCR) Parainfluenza 2 (PCR) Parainfluenza 3 (PCR) Parainfluenza 4 (PCR) RSV (PCR) Entero/Rhino (PCR) (2) Fracture of distal end of right fibula Encounter type: initial encounter Fracture morphology: unspecified fracture morphology Fracture type: closed Qualified Code(s): S82.831A - Other fracture of upper and lower end of right fibula, initial encounter for closed fracture
--- NOTE | 2024-08-21 12:50 | Electrocardiogram Report ---
Test Reason : Blood Pressure : */* mmHG Vent. Rate : 109 BPM Atrial Rate : 109 BPM P-R Int : 136 ms QRS Dur : 82 ms QT Int : 330 ms P-R-T Axes : 61 76 44 degrees QTcB Int : 444 ms Sinus tachycardia Possible Left atrial enlargement Poor R wave progression, consider anterior KS vs. lead placement vs. LVH Nonspecific ST abnormality Abnormal ECG When compared with ECG of 08-Oct-2023 14:09, Premature ventricular complexes are no longer Present Nonspecific T wave abnormality now evident in Inferior leads Confirmed by Santos Dillon ([id number] on 08/21/2024 12:50:20 PM Referred By: REFERRED SELF Confirmed By: Santos Dillon
[2024-08-21] MEDS: PIPERACILLIN/TAZOBACTAM 4.5 GM/100 ML BAG IV SCH (13:21)
[2024-08-21] MEDS: ACETAMINOPHEN 325 MG TAB PO PRN (15:04)
[2024-08-21] MEDS: diphenhydrAMINE Capsule 25 MG CAP PO ONE (15:07)
--- NOTE | 2024-08-21 15:11 | Orthopedic Consultation ---
Date of Service August 21, 2024 Assessment & Plan (1) Fracture of distal end of right fibula: I discussed the diagnosis and treatment options with her and her daughter at bedside. Given the amount of pain she is having in her ankle, I think she would be better treated with open reduction internal fixation and possible syndesmotic fixation. Her and her daughter understand the risk, benefits, and alternatives to procedure elected proceed. Questions were answered at bedside. Time was spent scribing the procedure and postop expectations. The decision was made for surgery and she will be n.p.o. past midnight tonight. History of Present Illness Reason for Consultation: Right bimalleolar equivalent fracture. Requesting Physician: . Attending Physician: Freeman Whipple MD Diya is a pleasant 74-year-old female who lives in a house with her . She is normally a community ambulator without assistance. She was feeling sick the past few days and was in her bathroom late yesterday afternoon when she had a syncopal episode. She woke up with significant right ankle pain. She does not recall exactly how she fell. She came to the emergency room and was admitted to the hospitalist service. X-rays and clinical exam were diagnostic for a bimalleolar equivalent right ankle fracture. Orthopedics was consulted to evaluate and treat.. Allergies Allergy/AdvReac Type Severity Reaction Status Date / Time codeine Allergy Mild urticaria Verified 10/08/23 18:02 and hallucinations fluoxetine Allergy Unknown chest pain Verified 10/08/23 18:02 oxycodone Allergy Unknown UNKNOWN Verified 10/08/23 18:02 morphine AdvReac Intermediate Hallucinati Verified 10/08/23 18:02 ng amlodipine AdvReac hypertension,foot Verified 10/08/23 18:02 and leg cramps atorvastatin AdvReac Muscle Pain Verified 10/08/23 18:02 doxycycline AdvReac HTN and Verified 10/08/23 18:08 burning of hands indapamide AdvReac leg and Verified 10/08/23 18:02 foot cramps lisinopril AdvReac Hypertensio Verified 10/08/23 18:02 n losartan AdvReac Hypertensio Verified 10/08/23 18:02 n Home Medications Medication Instructions Recorded Confirmed Type aspirin 81 mg tablet,delayed 81 mg PO DAILY 08/21/24 08/21/24 History release chlorthalidone 25 mg tablet 12.5 mg PO DAILY 08/21/24 08/21/24 History clonidine 0.2 mg/24 hr weekly 0.2 mg topical WK 08/21/24 08/21/24 History transdermal patch clonidine HCl 0.1 mg tablet 0.1 mg PO UD PRN htn 08/21/24 08/21/24 History conjugated estrogens 0.625 mg/gram 0.625 mg vaginal UD PRN Vaginal 08/21/24 08/21/24 History vaginal cream (Premarin) Dryness Past Med/Surg History Problem List Presence of pessary (Acute) Fracture of distal end of right fibula (Acute) Sepsis (Acute) Syncope (Acute) Sepsis Chest pain Social History Smoking Status: Former smoker Hx Alcohol Use: No Hx Substance Use: No Preferred Language: Wallisian Communication Ability: Effective Camp Manager Required: No Beliefs That Will Affect Care: None Current Living Situation: Spouse Other Information That Helps Us Care for You: No Feels Safe at Home: Yes Safety Concerns: Feels Safe At This Time Assistive Devices: Glasses Review of Systems All systems reviewed & are unremarkable except as noted in HPI & below. Physical Exam Physical examination of the right ankle does show tenderness palpation along the medial malleolus. She has a lot of pain with any motion of the ankle. She has a lot of pain over the distal fibula. The skin quality looks okay. I do not see any fracture blisters.. Constitutional WD/WN, vitals as above Eyes PERRL, conjunctivae normal, anicteric sclerae ENMT external ear and nose normal, oropharynx normal Neck trachea midline, no thyromegaly Respiratory normal respiratory effort Cardiovascular RRR, no murmur, no edema Gastrointestinal (Abdomen) normal bowel sounds, soft, nontender, no hepatosplenomegaly Psychiatric A+Ox3, euthymic affect Results & Data Results & Data Laboratory Results . Diagnostic Findings X-rays of the right ankle do show signs of bimalleolar equivalent fracture. There is a little bit of widening of the medial joint space and comminuted fracture of the fibula.. PG Care Time/CCT Total # of Minutes Spent Total Time Spent with Patient: Total time spent is greater than 50% in coordination of care (as documented) at patient's floor/unit and/or counseling patient: Coding Level of Care Code 67859 IN/OBS CONSULT LVL 4,60M (57 - DECISION FOR SURGERY) Diagnoses Fracture of distal end of right fibula S82.831A Encounter type: initial encounter Fracture morphology: unspecified fracture morphology Fracture type: closed (1) Fracture of distal end of right fibula Encounter type: initial encounter Fracture morphology: unspecified fracture morphology Fracture type: closed Qualified Code(s): S82.831A - Other fracture of upper and lower end of right fibula, initial encounter for closed fracture
[2024-08-21] MEDS: diphenhydrAMINE 50 MG/ML VIAL IV SCH (16:58)
[2024-08-21] MEDS: metroNIDAZOLE 500 MG/100 ML BAG IV SCH (16:59)
[2024-08-21] MEDS: CEFEPIME 2000MG 2,000 MG/20 ML SYR IV SCH (17:03)
[2024-08-21 20:14] LABS: Appearance Urine Cloudy (Clear); Bacteria Urine Automated None Seen (None Seen); Bilirubin Urine Negative (Negative); Blood Urine 3+ (Negative); Color Urine Yellow; Glucose Urine UA Negative (Negative); Ketones Urine Negative (Negative); Leukocyte Esterase Urine 2+ (Negative); Nitrite Urine Negative (Negative); Protein Urine 2+ (Negative); RBC Urine Automated >20 /hpf (0-2); Specific Gravity Urine > 1.045 (1.000-1.030); Urobilinogen Urine Negative (Negative); WBC Urine Automated >50 /hpf (0-5)
[2024-08-22] MEDS: HYDROmorphone INJ 0.5 MG/0.5 ML SYR IV PRN (02:14)
[2024-08-22 06:16] LABS: Basophils # (auto) 0.02 K/uL (0.00-0.20); Basophils % (auto) 0.2 %; Eosinophils # (auto) 0.34 K/uL (0.00-0.50); Eosinophils % (auto) 3.4 %; Hematocrit (blood only) 36.3 % (37.0-47.0); Hemoglobin 12.3 g/dl (12.0-16.0); Immature Granulocytes # (auto) 0.08 K/uL (0.01-0.20); Immature Granulocytes % (auto) 0.8 %; Lymphocytes # (auto) 0.92 K/uL (1.20-3.40); Lymphocytes % (auto) 9.2 %; Mean Corpuscular Hgb Conc 33.9 g/dL (32.0-36.0); Mean Corpuscular Volume 88.5 fL (80.0-100.0); Mean Platelet Volume 9.1 fL (9.4-12.4); Monocytes # (auto) 0.31 K/uL (0.11-0.59); Monocytes % (auto) 3.1 %; Neutrophils # (auto) 8.29 K/uL (1.40-6.50); Neutrophils % (auto) 83.3 %; Platelet Count 186 K/uL (130-400); RDW Coefficient of Variation 12.6 % (11.5-14.5); RDW Standard Deviation 41.2 fL (36.4-46.3); White Blood Count 9.96 K/ul (4.8-10.8)
[2024-08-22] MEDS ORDERED: BUPIVACAINE 0.25% PF 30 ML VIAL ONE (06:33)
[2024-08-22] MEDS ORDERED: BUPIVACAINE 0.5 % 5 MG/1 ML PF 10ML VIAL ONE (06:33)
[2024-08-22 06:36] LABS: Albumin Level 2.7 gm/dl (3.4-5.0); BUN Creatinine Ratio 18.2 (10-20); Bilirubin Direct 0.1 mg/dl (0-0.2); Bilirubin,Total 0.4 mg/dl (0.2-1.0); Calcium 7.8 mg/dl (8.6-10.3); Creatinine Clr Calc Pharmacy 79.5 ml/min; Magnesium 1.8 mg/dl (1.7-2.4); Phosphorus 2.5 mg/dl (2.5-4.9); Potassium 3.1 mmol/L (3.5-5.1); Total Protein 4.8 gm/dl (6.0-8.3)
--- NOTE | 2024-08-22 07:40 | Hospitalist Progress Note ---
Date of Service August 22, 2024 Assessment & Plan (1) Sepsis: Plan: 74-year-old female with past medical history significant for hypertension, hyperlipidemia, vitamin D deficiency, vaginal dryness, stress urine incontinence, osteopenia, history of colon surgery, history of TIA comes because of sepsis and syncope. Patient was having cystocele with prolapse and stress urinary incontinence saw urogynecology last Wednesday. There is a plan for surgery in first week of September and meanwhile pessary was placed on last Wednesday by urogynecology. Since Wednesday she was having temperatures. She is also having soreness, itchiness and discharge in the vulval region. As it was not getting better she called [facility] and got appointment today on Wednesday at 3:30 PM with urogynecology. But yesterday she was very sick. She was having nausea. Dizzy. She was laying in the bed all day. Poor appetite. And when she went to bathroom around 4 PM she saw dots and she passed out for short period of time. Does not think she hit her head. Her heard noise and when he came to check her she was awake but confused for some time. She could not get up as her right leg was hurting. Her daughter and her lives close by and they came and helped her cleaned up and get to the the bed and called EMS and brought in here. Currently alert and awake. Denies any headache. No blurred vision. No runny nose. No sore throat or cough. Denies any chest pain or shortness of breath. No abdominal pain. Normal bowel movements. Could not able to give urine sample so far. Refused straight cath because of soreness in vulval region. Denies any hematuria. Currently hemodynamics are okay. Sepsis Meets criteria for sepsis with temp spike, tachycardia and elevated WBC Lactic acid normal, at 1.8 Blood pressure is okay Most likely UTI Urinalysis pending cxr ok. resp biofire negative ER gave Rocephin Will continue with Zosyn, IV fluids Recently pessary was placed for cystocele and since then having itchiness, soreness and vaginal discharge. Will consult gynecology for evaluation and further recommendations - pessary was removed, cultx sent to lab, discussed w/ pool coordinator (Dr. Ruiz - no real concern for vaginal infection) ct abd/pelvis no acute findings Monitor hemodynamics Follow the cultures Close monitor UA obtained - and posit for blood, + WBC, negative bacteria - however pt already received ceftriaxone and zosyn prior to obtaining urine sample. Cont. treatment of sepsis likely 2/2 UTI Pt also developed mild rash adriana. noted on UEs b/l - and so zosyn was switched to cefepime and flagyl (flagyl also recommended by pool coordinator) Currently pt afebrile, overall feeling better. Likely plan to switch to PO abx tmrw Syncope and fall Mostly from sepsis Nauseous and dizzy and poor appetite yesterday EKG no acute findings and troponin negative Ct head ok. checked serial cardiac enzymes and echo Monitoring on telemetry Right tibia/fibula fracture From the fall from syncope S/p splint in the ER Orthopedics consulted and plan for surgery later today (09/22/24) Hypertension On clonidine patch (because of allergies )which will be continued for now and close monitor Will hold chlorthalidone Patient is also on clonidine p.o. as needed which will be held Close monitor History of TIA On aspirin Elevated total bilirubin at 1.6 AST ALT okay Will follow repeat labs Mild hypophosphatemia Will replace Follow repeat labs DVT prophylaxis - per ortho recommend ASA BID Disposition Telemetry Full code. Admission and Anticipated Discharge Date Admission Date: August 21, 2024 Subjective Pt seen in follow up of fever, sepsis, syncope, R fib/tibia fx. Pessary placed recently, removed in the hospital Plan for surgery with ortho today Currently laying in bed in NAD No fever (febrile yesterday), chills, chest pain, shortness of breath. mild rash UEs resolving Pt is urinating without much difficulty and pain in pelvic area is much improved now Review of Systems Review of Systems: All systems reviewed & are unremarkable except as noted in Subjective Physical Exam Physical Exam: General- WD/WN F in NAD Head- atraumatic Eyes- PERRL. Neck- supple, no JVD. Lungs- clear to auscultation no wheezing or crackles Heart- rrr Abdomen- normal bowel sounds, soft, nontender, no distension Extremities- right leg in splint Neuro- alert, oriented PERRL, no facial palsy; no dysarthria; moves extremities except right leg which is in splint Results & Data Results & Data Vital Signs (Past 12 Hours) Vital Signs Temp Pulse Pulse Resp BP Pulse Ox O2 Del Method 08/22/24 07:22 36.6 C 75 18 118/72 95 Room Air 08/22/24 02:12 37.0 C 89 20 117/69 95 Room Air 08/22/24 00:40 90 08/21/24 22:30 37.1 C 90 18 113/65 96 Room Air Laboratory Results 08/22/24 08/21/24 08/21/24 Range/Units 05:42 Unknown 15:55 WBC 9.96 (4.8-10.8) K/ul RBC 4.10 L (4.20-5.40) M/uL Hgb 12.3 D (12.0-16.0) g/dl Hct 36.3 L (37.0-47.0) % MCV 88.5 (80.0-100.0) fL MCH 30.0 (25.0-34.0) pg MCHC 33.9 (32.0-36.0) g/dL RDW Std Deviation 41.2 (36.4-46.3) fL RDW Coeff of Ranjeet 12.6 (11.5-14.5) % Plt Count 186 (130-400) K/uL MPV 9.1 L (9.4-12.4) fL Immature Gran % (Auto) 0.8 % Neut % (Auto) 83.3 % Lymph % (Auto) 9.2 % [place] % (Auto) 3.1 % Eos % (Auto) 3.4 % Baso % (Auto) 0.2 % Neut # (Auto) 8.29 H (1.40-6.50) K/uL Lymph # (Auto) 0.92 L (1.20-3.40) K/uL [place] # (Auto) 0.31 (0.11-0.59) K/uL Eos # (Auto) 0.34 (0.00-0.50) K/uL Baso # (Auto) 0.02 (0.00-0.20) K/uL Immature Gran # (Auto) 0.08 (0.01-0.20) K/uL Sodium 138 (136-145) mmol/L Potassium 3.1 L (3.5-5.1) mmol/L Chloride 105 (98-107) mmol/L Carbon Dioxide 29 (21-32) mmol/L Anion Gap 4 (3-11) BUN 10 (6-23) mg/dl Creatinine 0.55 L (0.6-1.2) mg/dl Est Cr Clr Drug Dosing 79.5 ml/min eGFR 94.94 BUN/Creatinine Ratio 18.2 (10-20) Glucose 109 H (70-99(Fasting)) mg/dl Calcium 7.8 L (8.6-10.3) mg/dl Phosphorus 2.5 (2.5-4.9) mg/dl Magnesium 1.8 (1.7-2.4) mg/dl Total Bilirubin 0.4 D (0.2-1.0) mg/dl Direct Bilirubin 0.1 (0-0.2) mg/dl AST 11 L (13-39) U/L ALT 7 (7-52) U/L Alkaline Phosphatase 40 (34-104) U/L Troponin I High Sens 11.9 (0-14) pg/ml Total Protein 4.8 L D (6.0-8.3) gm/dl Albumin 2.7 L (3.4-5.0) gm/dl Urine Color Yellow Urine Appearance Cloudy A (Clear) Urine pH 7.0 (4.5-7.5) Ur Specific [place] > 1.045 H (1.000-1.030) Urine Protein 2+ H (Negative) Urine Glucose (UA) Negative (Negative) Urine Ketones Negative (Negative) Urine Blood 3+ H (Negative) Urine Nitrite Negative (Negative) Urine Bilirubin Negative (Negative) Urine Urobilinogen Negative (Negative) Ur Leukocyte Esterase 2+ H (Negative) Urine WBC (Auto) >50 H (0-5) /hpf Urine RBC (Auto) >20 H (0-2) /hpf U Hyaline Cast (Auto) 11-20 H (0-2) /lpf U Epithel Cells (Auto) 3-5 H (0-2) /hpf Urine Bacteria (Auto) None Seen (None Seen) Blood Type A Positive Antibody Screen NEGATIVE 08/21/24 Range/Units 09:31 WBC (4.8-10.8) K/ul RBC (4.20-5.40) M/uL Hgb (12.0-16.0) g/dl Hct (37.0-47.0) % MCV (80.0-100.0) fL MCH (25.0-34.0) pg MCHC (32.0-36.0) g/dL RDW Std Deviation (36.4-46.3) fL RDW Coeff of Ranjeet (11.5-14.5) % Plt Count (130-400) K/uL MPV (9.4-12.4) fL Immature Gran % (Auto) % Neut % (Auto) % Lymph % (Auto) % [place] % (Auto) % Eos % (Auto) % Baso % (Auto) % Neut # (Auto) (1.40-6.50) K/uL Lymph # (Auto) (1.20-3.40) K/uL [place] # (Auto) (0.11-0.59) K/uL Eos # (Auto) (0.00-0.50) K/uL Baso # (Auto) (0.00-0.20) K/uL Immature Gran # (Auto) (0.01-0.20) K/uL Sodium (136-145) mmol/L Potassium (3.5-5.1) mmol/L Chloride (98-107) mmol/L Carbon Dioxide (21-32) mmol/L Anion Gap (3-11) BUN (6-23) mg/dl Creatinine (0.6-1.2) mg/dl Est Cr Clr Drug Dosing ml/min eGFR BUN/Creatinine Ratio (10-20) Glucose (70-99(Fasting)) mg/dl Calcium (8.6-10.3) mg/dl Phosphorus (2.5-4.9) mg/dl Magnesium (1.7-2.4) mg/dl Total Bilirubin (0.2-1.0) mg/dl Direct Bilirubin (0-0.2) mg/dl AST (13-39) U/L ALT (7-52) U/L Alkaline Phosphatase (34-104) U/L Troponin I High Sens 10.0 (0-14) pg/ml Total Protein (6.0-8.3) gm/dl Albumin (3.4-5.0) gm/dl Urine Color Urine Appearance (Clear) Urine pH (4.5-7.5) Ur Specific [place] (1.000-1.030) Urine Protein (Negative) Urine Glucose (UA) (Negative) Urine Ketones (Negative) Urine Blood (Negative) Urine Nitrite (Negative) Urine Bilirubin (Negative) Urine Urobilinogen (Negative) Ur Leukocyte Esterase (Negative) Urine WBC (Auto) (0-5) /hpf Urine RBC (Auto) (0-2) /hpf U Hyaline Cast (Auto) (0-2) /lpf U Epithel Cells (Auto) (0-2) /hpf Urine Bacteria (Auto) (None Seen) Blood Type Antibody Screen Medications Administered Current Inpatient Medications Acetaminophen (Acetaminophen 325 Mg Tab) 650 mg PO Q4H PRN PRN Reason: Pain or Fever Stop: 09/20/24 08:18 Last Admin: 08/22/24 00:10 Dose: 650 mg Aspirin (Aspirin 81 Mg Ectab) 81 mg PO DAILY ON LICENSE OF [facility] Stop: 09/20/24 08:59 Last Admin: 08/21/24 09:35 Dose: 81 mg Clonidine HCl (Clonidine Hcl 0.2 Mg/24 Hr Transderm Sys) 1 patch TD Tu@0900 ON LICENSE OF [facility] Stop: 09/21/24 08:59 Diphenhydramine HCl (Diphenhydramine 50 Mg/Ml Vial) 25 mg IV Q8H ON LICENSE OF [facility] Stop: 09/20/24 16:29 Last Admin: 08/22/24 00:06 Dose: 25 mg Enoxaparin Sodium (Enoxaparin Inj 40 Mg/0.4 Ml Syr) 40 mg SQ Q24H ON LICENSE OF [facility] Stop: 09/20/24 08:59 Last Admin: 08/21/24 09:35 Dose: 40 mg Hydromorphone HCl (Hydromorphone Inj 0.5 Mg/0.5 Ml Syr) 0.5 mg IV Q4H PRN PRN Reason: Severe Pain (Scale 7, 8, 9,10) Stop: 09/05/24 02:06 Last Admin: 08/22/24 02:14 Dose: 0.5 mg Sodium Chloride (Nss) 1,000 mls @ 125 mls/hr IV .Q8H ON LICENSE OF [facility] Stop: 08/22/24 08:18 Last Admin: 08/22/24 02:33 Dose: 125 mls/hr Cefepime HCl (Maxipime 2000mg) 2,000 mg in 20 mls @ 5 mls/min IV Q8H ON LICENSE OF [facility]; Protocol Stop: 08/23/24 15:59 Last Admin: 08/22/24 00:20 Dose: 5 mls/min Metronidazole (Flagyl) 500 mg in 100 mls @ 100 mls/hr IV Q8H ON LICENSE OF [facility]; Protocol Stop: 08/23/24 16:59 Last Infusion: 08/22/24 01:28 Dose: Infused Miscellaneous (Check Clonidine Patch Placement) 1 each N/A QS ON LICENSE OF [facility] Stop: 09/20/24 08:18 Last Admin: 08/22/24 00:08 Dose: 1 each Miscellaneous (Remove Clonidine Patch) 1 each N/A Tu@0859 ON LICENSE OF [facility] Stop: 09/21/24 08:58 Nitroglycerin (Nitroglycerin Sl 0.4 Mg/Tab Tab) 0.4 mg SL Q5M PRN PRN Reason: Chest Pain Stop: 09/20/24 08:18
--- NOTE | 2024-08-22 08:04 | Anesthesiology Consultation ---
Date of Service August 22, 2024 Assessment & Plan (1) Encounter for pre-operative examination: Chart Review Chart Review: Acceptable Risk for Surgery and Patient NOT seen in Pre Admission Testing Will recheck BMP to check her potassium since it was 3.1 and she is now s/p replacement. Also will ensure surgeon is aware and OK with proceeding as she received her 40mg dose of SQ lovenox this AM at 0839. Consults Requested none History Surgery Operation Date: 08/22/24 12:30 Proposed Procedures p Right Fibula Fracture Open Reduction Internal Fixation - Ronak Pruitt MD Height/Weight Height: 5 ft 3 in Weight: 66 kg Allergies Allergy/AdvReac Type Severity Reaction Status Date / Time fluoxetine Allergy Severe chest pain Verified 08/22/24 11:24 oxycodone Allergy Severe HALLUCINATI Verified 08/22/24 11:24 ONS codeine Allergy Mild urticaria Verified 08/22/24 11:25 and hallucinations amlodipine AdvReac Intermediate hypertension,foot Verified 08/22/24 11:24 and leg cramps atorvastatin AdvReac Intermediate Muscle Pain Verified 08/22/24 11:24 doxycycline AdvReac Intermediate HTN and Verified 08/22/24 11:24 burning of hands indapamide AdvReac Intermediate leg and Verified 08/22/24 11:24 foot cramps lisinopril AdvReac Intermediate Hypertensio Verified 08/22/24 11:24 n losartan AdvReac Intermediate Hypertensio Verified 08/22/24 11:24 n morphine AdvReac Intermediate Hallucinati Verified 08/22/24 11:25 ng Medications Home Medications Medication Instructions Recorded Confirmed Last Taken aspirin 81 mg tablet,delayed 81 mg PO DAILY 08/21/24 08/21/24 Unknown release chlorthalidone 25 mg tablet 12.5 mg PO DAILY 08/21/24 08/21/24 Unknown clonidine 0.2 mg/24 hr weekly 0.2 mg topical WK 08/21/24 08/21/24 Unknown transdermal patch clonidine HCl 0.1 mg tablet 0.1 mg PO UD PRN htn 08/21/24 08/21/24 Unknown conjugated estrogens 0.625 mg/gram 0.625 mg vaginal UD PRN Vaginal 08/21/24 08/21/24 Unknown vaginal cream (Premarin) Dryness Active Medications Generic Name Dose Route Start Last Admin Trade Name Freq PRN Reason Stop Dose Admin Acetaminophen 650 mg 08/21/24 08:19 08/22/24 00:10 Acetaminophen 325 Mg Tab PO 09/20/24 08:18 650 mg Q4H PRN Administration Pain or Fever Aspirin 81 mg 08/21/24 09:00 08/22/24 08:39 Aspirin 81 Mg Ectab PO 09/20/24 08:59 81 mg DAILY RAEANN Administration Cetirizine HCl 10 mg 08/22/24 09:00 08/22/24 09:21 Cetirizine Hcl 10 Mg Tablet PO 09/21/24 08:59 10 mg QAM RAEANN Administration Clonidine HCl 1 patch 08/22/24 09:00 08/22/24 08:40 Clonidine Hcl 0.2 Mg/24 Hr Transderm Sys TD 09/21/24 08:59 1 patch Tu@0900 RAEANN Administration Diphenhydramine HCl 25 mg 08/21/24 16:30 08/22/24 08:40 Diphenhydramine 50 Mg/Ml Vial IV 09/20/24 16:29 25 mg Q8H RAEANN Administration Enoxaparin Sodium 40 mg 08/21/24 09:00 08/22/24 08:39 Enoxaparin Inj 40 Mg/0.4 Ml Syr SQ 09/20/24 08:59 40 mg Q24H RAEANN Administration Hydromorphone HCl 0.5 mg 08/22/24 02:07 08/22/24 02:14 Hydromorphone Inj 0.5 Mg/0.5 Ml Syr IV 09/05/24 02:06 0.5 mg Q4H PRN Administration Severe Pain (Scale 7, 8, 9,10) Cefepime HCl 2,000 mg in 20 mls @ 5 mls/min 08/21/24 16:00 08/22/24 09:01 Maxipime 2000mg IV 08/23/24 15:59 5 mls/min Q8H RAEANN Administration Protocol Metronidazole 500 mg in 100 mls @ 100 mls/hr 08/21/24 17:00 08/22/24 09:01 Flagyl IV 08/23/24 16:59 100 mls/hr Q8H RAEANN Administration Protocol Miscellaneous 1 each 08/21/24 08:19 08/22/24 08:40 Check Clonidine Patch Placement N/A 09/20/24 08:18 1 each QS RAEANN Administration Miscellaneous 1 each 08/22/24 08:59 08/22/24 08:40 Remove Clonidine Patch N/A 09/21/24 08:58 1 each Tu@0859 RAEANN Administration Past Medical History Medical History (Updated 08/22/24 @ 11:58 by Refugio Morgan MD) Encounter for pre-operative examination Hypokalemia TIA (transient ischemic attack) Primary stress urinary incontinence Hyperlipemia Hypertension Sepsis Past Surgical History Surgical History History of colon surgery History of hysterectomy Past Anesthesia History No Hx of Anesthesia Complications and No Family Hx of Anesthesia Complications History of PONV No Hx of Motion Sickness and History of PONV Social History Smoking Status: Former smoker Hx Alcohol Use: No Hx Substance Use: No Physical Exam Vital Signs Last Vital Signs Temp 37.1 C 08/22/24 11:28 Pulse 88 08/22/24 11:28 Resp 18 08/22/24 11:28 BP 150/80 H 08/22/24 11:28 Pulse Ox 96 08/22/24 11:28 O2 Del Method Room Air 08/22/24 11:28 Testing Laboratory Results 08/22/24 05:42 08/22/24 05:42 PT 12.0 Seconds (9.0-12.0) 08/21/24 00:08 INR 1.1 (0.9-1.1) 08/21/24 00:08 Urine Color Yellow 08/21/24 Unknown Urine Appearance Cloudy (Clear) A 08/21/24 Unknown Urine pH 7.0 (4.5-7.5) 08/21/24 Unknown Ur Specific [place] > 1.045 (1.000-1.030) H 08/21/24 Unknown Urine Protein 2+ (Negative) H 08/21/24 Unknown Urine Glucose (UA) Negative (Negative) 08/21/24 Unknown Urine Ketones Negative (Negative) 08/21/24 Unknown Urine Nitrite Negative (Negative) 08/21/24 Unknown Ur Leukocyte Esterase 2+ (Negative) H 08/21/24 Unknown Urine WBC (Auto) >50 /hpf (0-5) H 08/21/24 Unknown Urine RBC (Auto) >20 /hpf (0-2) H 08/21/24 Unknown U Hyaline Cast (Auto) 11-20 /lpf (0-2) H 08/21/24 Unknown U Epithel Cells (Auto) 3-5 /hpf (0-2) H 08/21/24 Unknown Urine Bacteria (Auto) None Seen (None Seen) 08/21/24 Unknown Blood Type A Positive 08/22/24 05:42 Antibody Screen NEGATIVE 08/22/24 05:42 08/21/24 11:15 Gram Stain - Final Vaginal Genital Culture - Preliminary Staphylococcus aureus 08/21/24 03:03 Aerobic Blood Culture - Preliminary Blood No growth in Aerobic bottle after 24 hours. Anaerobic Blood Culture - Preliminary No growth in Anaerobic bottle after 24 hours. Electrocardiogram Date: 08/21/24 Findings: + ST @ (109) poor r wave progression Chest X-Ray Date: 08/21/24 Findings: + NAD Echocardiogram Date: 08/21/24 EF: 70% LV Function: normal small loculated right pericardial effusion, organization suggestive of some degree of chronicity. no tamponade is present Other Testing abd ct: diverticulosis, nonacute diverticulitis.no bowel obstruction. no free air head ct: no acute hemorrhage.no mass effect. no midline shift
[2024-08-22] MEDS: POTASSIUM CHLORIDE CRTAB 20 MEQ TABCR PO STA (08:39)
[2024-08-22] MEDS: CETIRIZINE HCL 10 MG TABLET PO SCH (09:21)
[2024-08-22] MEDS: FAMOTIDINE 20MG IV PUSH 20 MG/5 ML SYR IV STA (09:21)
[2024-08-22] MEDS ORDERED: ONDANSETRON INJ 2 MG/ML 2 ML VIAL IV PRN ×2 (11:41→14:53)
[2024-08-22] MEDS ORDERED: ePHEDrine sulfate 50 MG/ML AMP IV PRN (11:41)
[2024-08-22] MEDS ORDERED: fentaNYL citrate PF 100 MCG/2 ML VIAL IV PRN (11:41)
[2024-08-22] MEDS ORDERED: ATROPINE SULFATE 0.1 MG/ML 10ML SYR IV PRN (11:41)
[2024-08-22] MEDS ORDERED: fentaNYL citrate PF 100 MCG/2 ML VIAL ONE ×2 (12:07→14:16)
[2024-08-22] MEDS ORDERED: DEXAMETHASONE SOD INJ 4 MG/ML VIAL ONE (12:07)
[2024-08-22] MEDS ORDERED: MIDAZOLAM HCL 1 MG/ML 2ML VIAL ONE (12:07)
[2024-08-22] MEDS ORDERED: PHENYLEPHRINE 100MCG/ML 5ML SYR ONE (12:07)
[2024-08-22] MEDS ORDERED: ONDANSETRON INJ 2 MG/ML 2 ML VIAL ONE (12:07)
[2024-08-22] MEDS ORDERED: PROPOFOL IV EMULSION 10 MG/ML 20 ML VIAL IV ONE (12:07)
[2024-08-22] MEDS ORDERED: diphenhydrAMINE 50 MG/ML VIAL ONE (12:08)
[2024-08-22] MEDS: LACTATED RINGER'S 1,000 ML IV SCH (12:10)
[2024-08-22] MEDS ORDERED: ACETAMINOPHEN 1000 MG/100 ML IV IV ONE (12:11)
--- NOTE | 2024-08-22 12:41 | History & Physical Bridge Note ---
Date of Service August 22, 2024 History & Physical Bridge Note I have examined the patient, reviewed the History & Physical and in the interval since the performance of the History & Physical I have noted the following changes of clinical significance: no changes noted. I reviewed the x-rays, reviewed the chart, and discussed the case with Dr. Sarmiento who did the original consultation. I agree with this consultation note and the plan. Today, met the patient in the preop holding area and evaluate her once again. I do good discussion with her with regard to her ankle fracture diagnosis, the treatment alternatives, and my recommendation to proceed with a right ankle fracture open reduction and internal fixation. I reviewed the risks of this surgery include, but are not limited to, infection, nerve or vessel injury, arthrofibrosis of the ankle, need for repeat or revision surgery, nonunion, malunion, implant failure, progressive degenerative arthritis with or without the surgery, pain syndromes, blood clots, and complication related anesthesia. She asked appropriate questions, demonstrated a good understanding, and informed consent was documented in the preoperative holding area as she desired to proceed with surgery.
[2024-08-22 12:42] LABS: BUN Creatinine Ratio 18.4 (10-20); Calcium 8.1 mg/dl (8.6-10.3); Creatinine Clr Calc Pharmacy 89.2 ml/min; Potassium 3.3 mmol/L (3.5-5.1)
[2024-08-22] MEDS: ceFAZolin 2000MG 2,000 MG/15 ML SYR IV ONE (12:50)
[2024-08-22] MEDS: TRANEXAMIC ACID / 0.7% NACL 1,000 MG/100 ML BAG IV ONE (12:52)
--- NOTE | 2024-08-22 14:37 | Fluoroscopy Report ---
FL ankle RT min 3V RTN CLINICAL HISTORY: RIGHT FIBULA ORIFORIF of the right ankle COMPARISON STUDY: Right ankle radiographs 08/21/2024 FLUOROSCOPY TIME: 22.8 seconds FLUOROSCOPY IMAGES: 3 EXPOSURE DOSE: 0.5702 mGy FINDINGS: Status post plate and screw fusion of the acute distal fibular fracture along with distal s yndesmotic repair. There is now satisfactory alignment. No unexpected opaque foreign bodies. IMPRESSION: Fluoroscopic assistance as above. ACT 112: Negative or not required by law. Electronically signed by: Caden Masterson M.D. 08/22/2024 2:36 PM
[2024-08-22] MEDS ORDERED: MAGNESIUM HYDROXIDE SUSP 30 ML UDC PO PRN (14:53)
[2024-08-22] MEDS ORDERED: bisacodyL 10 MG SUPP PR PRN (14:53)
[2024-08-22] MEDS ORDERED: NALOXONE HCL 0.4 MG/1 ML VIAL/CARP IV PRN (14:53)
[2024-08-22] MEDS ORDERED: METOCLOPRAMIDE HCL INJ 5 MG/ML 2 ML VIAL IV PRN (14:53)
[2024-08-22] MEDS ORDERED: cloNIDine HCL 0.1 MG TAB PO PRN (14:58)
[2024-08-22] MEDS ORDERED: PREMARIN VAG CRM 14 APPLN/30 GM TUBE PV PRN (14:58)
--- NOTE | 2024-08-22 15:05 | Anesthesiology Progress Note ---
Date of Service August 22, 2024 Anesthesia Post Procedure Vital Signs Vital Signs: Temp Pulse Pulse Pulse Resp BP Pulse Ox 08/22/24 11:28 37.1 C 88 18 150/80 H 96 08/22/24 07:22 36.6 C 75 18 118/72 95 08/22/24 02:12 37.0 C 89 20 117/69 95 08/22/24 00:40 90 08/21/24 22:30 37.1 C 90 18 113/65 96 08/21/24 19:13 37.1 C 96 H 18 100/56 L 93 08/21/24 16:00 38.4 C H 111 H 20 95/57 L 93 O2 Del Method 08/22/24 11:28 Room Air 08/22/24 07:22 Room Air 08/22/24 02:12 Room Air 08/22/24 00:40 08/21/24 22:30 Room Air 08/21/24 19:13 Room Air 08/21/24 16:00 Room Air Pain Intensity Right Ankle: Pain Intensity: 4 Transfer of Care Handoff Completed per policy Notes Mental Status: alert / awake / arousable and participated in evaluation Patient Amnestic to Procedure: Yes Nausea / Vomiting: adequately controlled Pain: adequately controlled Airway Patency, RR, SpO2: stable & adequate BP & HR: stable & adequate Hydration State: stable & adequate Anesthetic Complications: no major complications apparent and Pt Satisfied with anesthetic care
--- NOTE | 2024-08-22 15:21 | Operative Report ---
PG Post Operative Report Pre & Post Diagnosis Operation Date: 08/22/24 12:30 Pre-Op Diagnosis: Right bimalleolar equivalent ankle fracture Post-Op Diagnosis: Right bimalleolar equivalent ankle fracture I identified the patient and participated in the time-out.: Yes Procedure Operation Date: 08/22/24 12:30 Actual Procedures p Right distal fibula Fracture Open Reduction Internal Fixation with Syndesmosis fixation (Right) - Ronak Pruitt MD Surgeon Ronak Pruitt MD Asphalt Heater Operator Lo Sargent PA-C Estimated Blood Loss 25 Findings See Below Minimally, limited long spiral oblique fibular fracture with medial malleolus avulsion and syndesmotic widening on stress maneuver. [employer] implants: 10 hole 3.5 mm locking one third tubular plate 3.5 mm cortical screws 14 mm, 16 mm 3.5 mm locking screws 14 mm X4, 16, 18 Arthrex syndesmotic tight rope Specimens none Disposition Accompanied Patient To Recovery: No Disposition: Recovery Room Indications 74-year-old female sustained twisting ankle injury at home resulting in inab ility to bear weight. She is admitted to the hospital with presumed urosepsis and an ankle fracture. Orthopedics was consulted. My partner had seen her and indicated for surgery. I reviewed her diagnosis, prognosis and recommended treatment with surgery this morning in the preoperative holding area. Informed consent was reviewed and confirmed she desired to proceed with internal fixation of her ankle. Description of Procedure On the day of surgery, the patient was greeted in the preoperative holding area. The informed consent was reviewed and confirmed by myself and the patient. The patient identified the surgical site and was marked by me. The patient was then turned over to anesthesia. Anesthesia performed a regional anesthetic block with excellent effect. Patient was then taken to the operating room and placed upon the OR table. Anesthesia was induced. The airway was secured. A 3 blanket bump was placed under the ipsilateral hip. The bone foam was placed onto the operative extremity and fixed to the table. All bony prominences well- padded. A nonsterile tourniquet placed on the operative thigh. The extremity then prepped and draped in usual sterile fashion for ankle fracture surgery. Surgical timeout was called by the circulating nurse and verified all present. Antibiotics had been infused and equipment was available and functional. Adequate fluoroscopic views were available. Surgery was initiated by exsanguinating the extremity with the Esmarch bandage and inflating the tourniquet to 250 mmHg. Total tourniquet time was 70. Longitudinal skin incision along the fibular shaft was made. Subcutaneous dissection was carried out using Bovie electrocautery for hemostasis. Subcutaneous dissection was conducted using Metzenbaum scissors with caution for the nearby superficial peroneal nerve. The nerve was identified in the anterior skin flap and mobilized. Fascia was incision was made posterior to the nerve with a muscle sleeve to protect it. The fibula was easily palpable through the fascia and opened up through the retinacula to reveal the periosteum and hematoma. The hematoma was evacuated using sharp dissection and thorough irrigation. The bone ends were exposed. The cortical keys were exposed using 2 mm dissection along the margins using a knife. Fracture reduction clamps were then used to manipulate the fibula. Direct with reduction was able to be achieved. Interfragmentary screw fixation was performed with 3.5mm cortical screw. This achieved good purchase. This allowed us remove all the clamps. Fluoroscopy was used to determine plate length, and followed by plate position. Once the plate was adequately positioned it was fastened to bone using cortical screws on either side of the fracture, ensuring appropriate plate alignment. Distal fixation was achieved with locking screws. Attention was then directed to proximal screws to complete fixation of the plate to bone. The fracture reduction and plate position was then evaluated thoroughly on fluoroscopy in multiple views. A dorsiflexion external rotation force was then placed to evaluate the syndesmosis, which easily widened. The Arthrex syndesmotic tight rope was then opened. Using fluoroscopic guidance, the 4 mm drill was used to traverse all 4 cortices parallel to the joint line. The syndesmotic tight rope introduction device was then used for the button on the medial cortex, confirmed by fluoroscopy. The button was then tightened down sequentially using the tension handles. Repeat syndesmotic stress was performed and instability was demonstrated. We then began closure after thorough irrigation. Hemostasis was adequate. 0 Vicryl suture was used to approximate periosteum and muscle fascia around the plate to cover its entirety and protect the superficial peroneal nerve. Deep fascial tissue was approximated underneath the dermis to close down the wound using 0 and 2-0 Vicryl suture. 3-0 Vicryl sutures were used in the dermis, and the final skin closure was with yordan. Wound was dressed with sterile Xeroform, gauze, ABD and contained by web roll. The limb was placed in a standard posterior slab ankle splint that was adequately padded. Patient was turned over to anesthesia, extubated in the operating room without complication, and transported to the PACU in stable condition. Disposition: The patient will be nonweightbearing for the first 2 weeks until splint removal. Will advance to flatfoot weightbearing until 6 weeks in a controlled active motion boot. Ankle range of motion can begin once the wound is healed and the staple removed at the 2-week postop. Routine postoperative pain management was prescribed. I recommended daily aspirin for DVT pr ophylaxis. Physician television production assistant attestation: Lo Sargent PA-C was present and scrubbed for the duration of the case, which was essential to prepping/draping, patient positioning, retraction, and a ssistance with wound closure. The skilled assistance of the PA was necessary for retraction, fracture reduction and assistance with drilling and placement of hardware. I attest to the content of the Intraoperative Record and any orders documented therein. Any exceptions are noted below. I attest to the content of the Intraoperative Record and any orders documented therein. Any exceptions are noted below.
[2024-08-22] MEDS: FAMOTIDINE/PF 20 MG/2 ML VIAL IV ONE (15:57)
[2024-08-22] MEDS: TRANEXAMIC ACID / 0.7% NACL 1000MG/100ML BAG IV ONE (15:57)
[2024-08-22] MEDS: ceFAZolin 2,000 MG/15 ML IV PUSH IV ONE (15:57)
[2024-08-22] MEDS: SENNA 8.6 MG TAB PO SCH (20:12)
[2024-08-22] MEDS: DOCUSATE SODIUM 100 MG CAP PO SCH (20:12)
[2024-08-22] MEDS ORDERED: ceFAZolin 2000MG 2,000 MG/15 ML SYR IV SCH (21:00)
[2024-08-23 07:22] LABS: Hematocrit (blood only) 33.3 % (37.0-47.0); Hemoglobin 11.5 g/dl (12.0-16.0); Mean Corpuscular Hemoglobin 30.3 pg (25.0-34.0); Mean Corpuscular Hgb Conc 34.5 g/dL (32.0-36.0); Mean Corpuscular Volume 87.9 fL (80.0-100.0); Mean Platelet Volume 9.2 fL (9.4-12.4); Platelet Count 200 K/uL (130-400); RDW Coefficient of Variation 12.5 % (11.5-14.5); RDW Standard Deviation 40.1 fL (36.4-46.3); Red Blood Count 3.79 M/uL (4.20-5.40); White Blood Count 7.72 K/ul (4.8-10.8)
[2024-08-23 07:38] LABS: BUN Creatinine Ratio 20.4 (10-20); Calcium 7.9 mg/dl (8.6-10.3); Creatinine Clr Calc Pharmacy 89.2 ml/min; Phosphorus 2.4 mg/dl (2.5-4.9); Potassium 3.5 mmol/L (3.5-5.1)
[2024-08-23] MEDS: MULTIVITAMIN TAB PO SCH (09:01)
[2024-08-23] MEDS: CHLORTHALIDONE 25 MG TAB PO SCH (09:01)
--- NOTE | 2024-08-23 09:02 | Orthopedic Progress Note ---
Date of Service August 23, 2024 Assessment & Plan (1) Fracture of distal end of right fibula: - She is postop day 1 from a right distal fibula ORIF with syndesmotic fixation. She can work with physical therapy/Occupational Therapy for gait training. She will be nonweightbearing the right lower extremity. She will see me at 2 weeks postop as an outpatient. We recommend 81 mg aspirin twice a day for DVT prophylaxis. Her splint will remain in place until she sees me at her 2-week postop appointment. Please contact orthopedics with any questions or concerns. Subjective Operation Date: 08/22/24 12:30 Actual Procedures p Right distal fibula Fracture Open Reduction Internal Fixation with Syndesmosis fixation (Right) - Ronak Pruitt MD Diya is a 74-year-old female who is postop day 1 from a right distal fibula ORIF with syndesmotic fixation. She states she is doing okay. Other than some diarrhea, she is doing fine. States that her block is still in effect but she does have some numbness in her toes. Did have some questions about what to expect over the next few weeks, other than that no questions or concerns today. Review of Systems All systems reviewed & are unremarkable except as noted in HPI & below. Physical Exam General: Alert and oriented. No acute distress. Right lower extremity: Her splint is intact without saturation of the dressing or Anthony wrap. She does not have motion of her toes yet as her block is still in effect but she is starting to develop sensation back, specifically in the second toe. Capillary fill is less than 3 seconds on all toes. Results & Data Results & Data Laboratory Results . Diagnostic Findings . PG Care Time/CCT Total # of Minutes Spent Total Time Spent with Patient: Total time spent is greater than 50% in coordination of care (as documented) at patient's floor/unit and/or counseling patient: Coding Diagnoses Fracture of distal end of right fibula S82.831A Encounter type: initial encounter Fracture morphology: unspecified fracture morphology Fracture type: closed (1) Fracture of distal end of right fibula Encounter type: initial encounter Fracture morphology: unspecified fracture morphology Fracture type: closed Qualified Code(s): S82.831A - Other fracture of upper and lower end of right fibula, initial encounter for closed fracture
[2024-08-23] MEDS: POT PHOSPHATE MONOBASIC W/ SOD TAB PO SCH (09:47)
[2024-08-23] MEDS: SACCHAROMYCES BOULARDII 250 MG CAP PO SCH (11:23)
[2024-08-23] MEDS: LOPERAMIDE HCL 2 MG CAP PO PRN (11:23)
[2024-08-23 14:45] LABS: Adenovirus F 40/41 PCR Not Detected (NotDetected); Astrovirus PCR Not Detected (NotDetected); Campylobacter PCR Not Detected (NotDetected); Cryptosporidium PCR Not Detected (NotDetected); Cyclospora cayetanensis PCR Not Detected (NotDetected); Entamoeba histolytica PCR Not Detected (NotDetected); Enteroaggregative E.coli(EAEC) Not Detected (NotDetected); Enteropathogenic E.coli (EPEC) Not Detected (NotDetected); Enterotoxigenic E.coli (ETEC) Not Detected (NotDetected); Giardia lamblia PCR Not Detected (NotDetected); Norovirus GI/GII PCR Not Detected (NotDetected); Plesiomonas shigelloides PCR Not Detected (NotDetected); Rotavirus A PCR Not Detected (NotDetected); Salmonella PCR Not Detected (NotDetected); Sapovirus PCR Not Detected (NotDetected); Shiga-like Toxin E.coli (STEC) Not Detected (NotDetected); Shigella/Enteroinvasive E.coli Not Detected (NotDetected); Vibrio cholerae PCR Not Detected (NotDetected); Vibrio species PCR Not Detected (NotDetected); Yersinia enterocolitica PCR Not Detected (NotDetected)
--- NOTE | 2024-08-23 15:29 | Hospitalist Progress Note ---
Date of Service August 23, 2024 Assessment & Plan (1) Sepsis: Plan: 74-year-old female with past medical history significant for hypertension, hyperlipidemia, vitamin D deficiency, vaginal dryness, stress urine incontinence, osteopenia, history of colon surgery, history of TIA comes because of sepsis and syncope. Patient was having cystocele with prolapse and stress urinary incontinence saw urogynecology last Wednesday. There is a plan for surgery in first week of September and meanwhile pessary was placed on last Wednesday by urogynecology. Since Wednesday she was having temperatures. She is also having soreness, itchiness and discharge in the vulval region. As it was not getting better she called [facility] and got appointment today on Wednesday at 3:30 PM with urogynecology. But yesterday she was very sick. She was having nausea. Dizzy. She was laying in the bed all day. Poor appetite. And when she went to bathroom around 4 PM she saw dots and she passed out for short period of time. Does not think she hit her head. Her heard noise and when he came to check her she was awake but confused for some time. She could not get up as her right leg was hurting. Her daughter and her lives close by and they came and helped her cleaned up and get to the the bed and called EMS and brought in here. Sepsis Meets criteria for sepsis with temp spike, tachycardia and elevated WBC Lactic acid normal, at 1.8 Blood pressure is okay Urinalysis and urine culture with no sig growth cxr ok. resp biofire negative ER gave Rocephin Will continue with Zosyn, IV fluids Recently pessary was placed for cystocele and since then having itchiness, soreness and vaginal discharge. Will consult gynecology for evaluation and further recommendations - pessary was removed, cultx sent to lab, discussed w/ office secretary (Dr. Ruiz - no real concern for vaginal infection) ct abd/pelvis no acute findings Monitor hemodynamics Follow the cultures Close monitor UA obtained - and posit for blood, + WBC, negative bacteria - however pt already received ceftriaxone and zosyn prior to obtaining urine sample. Cont. treatment of sepsis likely 2/2 UTI Pt also developed mild rash adriana. noted on UEs b/l - and so zosyn was switched to cefepime and flagyl (flagyl also recommended by office secretary) Currently pt afebrile, overall feeling better. 08/23- pt switched to po flagyl and cefdinir with ID consult for further recs in setting of rash and uncertain dx Syncope and fall Mostly from sepsis Nauseous and dizzy and poor appetite yesterday EKG no acute findings and troponin negative Ct head ok. checked serial cardiac enzymes and echo Monitoring on telemetry Right tibia/fibula fracture From the fall from syncope S/p splint in the ER Orthopedics consulted and s/p surgery on (08/22/24) Hypertension On clonidine patch (because of allergies )which will be continued for now and close monitor Will hold chlorthalidone Patient is also on clonidine p.o. as needed which will be held Close monitor History of TIA On aspirin Elevated total bilirubin at 1.6 AST ALT okay Will follow repeat labs Mild hypophosphatemia Will replace Follow repeat labs DVT prophylaxis - per ortho recommend ASA BID Disposition Telemetry Full code. Admission and Anticipated Discharge Date Admission Date: August 21, 2024 Subjective Pt with noted diarrhea, states copious for the past 2 days, Denies fevers, chills or night sweats Review of Systems Review of Systems: All systems reviewed & are unremarkable except as noted in Subjective Physical Exam Physical Exam: General: Alert, oriented. No acute distress Skin: persistent rash Psych: Appropriate mood and affect HEENT: NC/AT CV: RRR Resp: Breath sounds clear bilaterally, no increased effort of breathing Abdomen: Soft, nontender Extremities: No edema in lower extremities bilaterally. Results & Data Results & Data Vital Signs (Past 12 Hours) Vital Signs Temp Pulse Pulse Resp BP Pulse Ox O2 Del Method 08/23/24 14:35 88 08/23/24 11:27 Room Air 08/23/24 11:27 75 08/23/24 10:46 36.7 C 86 20 139/62 91 Room Air 08/23/24 07:40 36.7 C 72 18 137/73 92 Room Air
[2024-08-23] MEDS: ASPIRIN 81 MG ECTAB PO SCH (20:01)
[2024-08-24] MEDS: metroNIDAZOLE 500 MG TAB PO SCH ×2 (01:26→21:14)
[2024-08-24] MEDS: traMADol HCL 50 MG TABLET PO PRN (01:55)
[2024-08-24 07:06] LABS: Hematocrit (blood only) 34.1 % (37.0-47.0); Hemoglobin 11.9 g/dl (12.0-16.0); Mean Corpuscular Hgb Conc 34.9 g/dL (32.0-36.0); Mean Corpuscular Volume 85.9 fL (80.0-100.0); Mean Platelet Volume 8.8 fL (9.4-12.4); Platelet Count 233 K/uL (130-400); RDW Coefficient of Variation 12.3 % (11.5-14.5); RDW Standard Deviation 39.1 fL (36.4-46.3); Red Blood Count 3.97 M/uL (4.20-5.40)
[2024-08-24 07:22] LABS: BUN Creatinine Ratio 27.3 (10-20); Creatinine Clr Calc Pharmacy 99.1 ml/min; Magnesium 1.9 mg/dl (1.7-2.4); Phosphorus 2.7 mg/dl (2.5-4.9); Potassium 2.9 mmol/L (3.5-5.1)
[2024-08-24] MEDS: CEFDINIR 300 MG CAP PO SCH (07:29)
[2024-08-24] MEDS: POTASSIUM CHLORIDE CRTAB 20 MEQ TABCR PO STA (09:14)
[2024-08-24] MEDS: POT PHOSPHATE MONOBASIC W/ SOD TAB PO SCH (09:15)
--- NOTE | 2024-08-24 09:19 | Orthopedic Progress Note ---
Date of Service August 24, 2024 Assessment & Plan (1) Fracture of distal end of right fibula: - She is postop day 2 from a right distal fibula ORIF with syndesmotic fixation. She can work with physical therapy/Occupational Therapy for gait training. She will be nonweightbearing the right lower extremity. She will see me at 2 weeks postop as an outpatient. We recommend 81 mg aspirin twice a day for DVT prophylaxis. Her splint will remain in place until she sees me at her 2-week postop appointment. Please contact orthopedics with any questions or concerns. Subjective Operation Date: 08/22/24 12:30 Actual Procedures p Right distal fibula Fracture Open Reduction Internal Fixation with Syndesmosis fixation (Right) - Ronak Pruitt MD Diya is a 74-year-old female who is postop day 2 from a right distal fibula ORIF with syndesmotic fixation. She states she is doing okay at today's visit. She states that the block has worn off and that she has gained sensation in her right lower extremity. She is able to wiggle her toes and does state that she had a little bit of a rough night with pain last night but is doing well today. No other questions or concerns today. Review of Systems All systems reviewed & are unremarkable except as noted in HPI & below. Physical Exam General: Alert and oriented. No acute distress. Right lower extremity: Her splint is intact without saturation of the dressing or Anthony wrap. She has sensation in her right lower extremity as well as range of motion of all of her toes. Cap refill less than 3 seconds. Sensation intact. Results & Data Results & Data Laboratory Results . Diagnostic Findings . PG Care Time/CCT Total # of Minutes Spent Total Time Spent with Patient: Total time spent is greater than 50% in coordination of care (as documented) at patient's floor/unit and/or counseling patient: Coding Diagnoses Fracture of distal end of right fibula S82.831A Encounter type: initial encounter Fracture morphology: unspecified fracture morphology Fracture type: closed (1) Fracture of distal end of right fibula Encounter type: initial encounter Fracture morphology: unspecified fracture morphology Fracture type: closed Qualified Code(s): S82.831A - Other fracture of upper and lower end of right fibula, initial encounter for closed fracture
[2024-08-24] MEDS: FLUCONAZOLE 50 MG TAB PO ONE (10:38)
--- NOTE | 2024-08-24 14:34 | Hospitalist Progress Note ---
Date of Service August 24, 2024 Assessment & Plan (1) Sepsis: Plan: 74-year-old female with past medical history significant for hypertension, hyperlipidemia, vitamin D deficiency, vaginal dryness, stress urine incontinence, osteopenia, history of colon surgery, history of TIA comes because of sepsis and syncope. Recent pessary placement. Sepsis Meets criteria for sepsis with temp spike, tachycardia and elevated WBC Lactic acid normal, at 1.8 Blood pressure stable Urinalysis and urine culture with no sig growth cxr ok. resp biofire negative ct abd/pelvis no acute findings ER gave Rocephin Originally treated with Zosyn, IV fluids Recently pessary was placed for cystocele and since then having itchiness, soreness and vaginal discharge. NUT CRACKER consulted, appreciate recs -pessary was removed, cultx sent to lab, discussed w/ shank sander (Dr. Ruiz - no real concern for vaginal infection) Infectious Disease was consulted, recommended/stated the following: "Pelvic inflammatory disease (PID)...Since she has been afebrile for over 48 hrs, please change cefdinir to oral Keflex 500 mg PO QID (for MSSA from vaginal discharge), start oral Levaquin 750 mg daily (for gram neg endometritis) and change flagyl to 500 mg BID (for trichomonas and gardnerella). Aim for 7 day course of flagyl 500 mg PO BID and 2 week course of oral keflex and Levaquin. Before discharge, please obtain a vaginosis panel (ismael/gardnerella/trichomonas PCR probe) and chlamydia/gonorrhea from vaginal/cervical swab." Vaginosis panel and vaginal/cervical swab discussed with NUT CRACKER who advised to obtain urine g/c and that vaginosis panel will be negative since pt already received flagyl. GC to be obtained after pt consents Continue with po Keflex, Flagyl and Levaquin at this time. Syncope and fall Likely from sepsis Nauseous and dizzy and poor appetite yesterday EKG no acute findings and troponin negative Ct head unremarkable checked serial cardiac enzymes and echo Monitoring on telemetry Right tibia/fibula fracture From the fall from syncope S/p splint in the ER Orthopedics consulted and s/p surgery on (08/22/24). Ortho recommended/stated the following: " She is postop day 2 from a right distal fibula ORIF with syndesmotic fixation. She can work with physical therapy/Occupational Therapy for gait training. She will be nonweightbearing the right lower extremity. She will see me at 2 weeks postop as an outpatient. We recommend 81 mg aspirin twice a day for DVT prophylaxis. Her splint will remain in place until she sees me at her 2-week postop appointment. Please contact orthopedics with any questions or concerns." Hypokalemia Hypophosphatemia Replete as needed Hypertension On clonidine patch (because of allergies )which will be continued for now and close monitor Will hold chlorthalidone Patient is also on clonidine p.o. as needed which will be held Closely monitor History of TIA On aspirin Diet: HH DVT prophylaxis - per ortho recommend ASA BID Dispo: PT/OT recommending acute rehab Admission and Anticipated Discharge Date Admission Date: August 21, 2024 Subjective Patient was seen in the a.m. laying in bed. Notes she is still having copious amounts of diarrhea though it is currently relieved with the Imodium Discussion that her stool did not show any acute infection. States she is having some vaginal itching and burning. Denies thick white vaginal discharge. Review of Systems Review of Systems: All systems reviewed & are unremarkable except as noted in Subjective Physical Exam Physical Exam: General: Alert, oriented. No acute distress Skin: persistent rash, vaginal Psych: Appropriate mood and affect HEENT: NC/AT CV: RRR Resp: Breath sounds clear bilaterally, no increased effort of breathing Abdomen: Soft, nontender exam: labia covered with barrier cream, areas of erythema noted Extremities: No edema in lower extremities bilaterally. Results & Data Results & Data Vital Signs (Past 12 Hours) Vital Signs Temp Pulse Pulse Resp BP BP Pulse Ox 08/24/24 11:18 37.0 C 73 18 152/81 H 94 08/24/24 07:33 36.6 C 75 18 167/89 H 92 08/24/24 07:05 76 08/24/24 03:54 36.7 C 85 18 138/64 94 O2 Del Method 08/24/24 11:18 Room Air 08/24/24 07:33 Room Air 08/24/24 07:05 08/24/24 03:54 Room Air Diagnostic Findings Chest X-Ray 08/21/24 00:20 XR chest 1V portable HISTORY: 74 years-old Female Chest pain, nonspecific COMPARISON: 10/08/2023 TECHNIQUE: AP view of the chest FINDINGS: Cardiac silhouette is normal in size. No pneumothorax, pleural effusion or airspace consolidation. Sigmoidal thoracolumbar scoliosis. IMPRESSION: No acute process. ACT 112: Negative or not required by law. The above report was generated using voice recognition software. It may contain grammatical, syntax or spelling errors. Electronically signed by: Caden Masterson M.D. 08/21/2024 6:48 AM Ankle X-Ray 08/21/24 00:40 XR ankle RT min 3V routine CLINICAL HISTORY: Right ankle pain following fall. COMPARISON: None FINDINGS: There is an acute oblique minimally displaced fracture of the distal diaphysis of the right fibula. Fracture is displaced 3 mm. There is also an acute minimally displaced fracture of the medial malleolus. Mild medial ankle mortise widening is present. There is a possible acute nondisplaced posterior distal right tibial fracture. There is right ankle soft tissue swelling. IMPRESSION: 1. Acute oblique minimally displaced distal diaphyseal right fibular fracture. 2. Acute mildly displaced fracture of the medial malleolus and a possible acute nondisplaced fracture of the posterior distal right tibia. 3. Mild medial ankle mortise widening. 4. Ankle soft tissue swelling. ACT 112: Negative or not required by law. Electronically signed by: Hugo Curtis M.D. 08/21/2024 6:58 AM Abdomen/Pelvis CT 08/21/24 01:39 Exam(s): CT ABDOMEN + PELVIS With Contrast IV Amt: 93 ML OPTIRAY 320 EXAM: CT Abdomen and Pelvis With Intravenous Contrast CLINICAL HISTORY: Reason for exam: fever, syncope, vaginal discharge, pessary. TECHNIQUE: Axial computed tomography images of the abdomen and pelvis with intravenous contrast. CTDI is 48 mGy and DLP is 799 mGy-cm. Automated exposure control was utilized for the study. A dose lowering technique was utilized adhering to the principles of ALARA. CONTRAST: Patient received 93 ML OPTIRAY 320 of IV contrast COMPARISON: CT abdomen and pelvis October 08, 2023. FINDINGS: Lung bases: Unremarkable. No mass. No consolidation. ABDOMEN: Liver: Unremarkable. No mass. Gallbladder and bile ducts: Unremarkable. No calcified stones. No ductal dilation. Pancreas: Unremarkable. No mass. No ductal dilation. Spleen: Unremarkable. No splenomegaly. Adrenals: Unremarkable. No mass. Kidneys and ureters: Unremarkable. No solid mass. No hydronephrosis. Stomach and bowel: Diverticulosis, without acute diverticulitis. No small bowel obstruction. No free intraperitoneal air. PELVIS: Appendix: No findings to suggest acute appendicitis. Bladder: Unremarkable. No mass. Reproductive: Pessary in the pelvis. ABDOMEN and PELVIS: Intraperitoneal space: Unremarkable. No free air. No significant fluid collection. Bones/joints: Degenerative changes of the spine. Scoliosis. No acute fracture. No dislocation. Soft tissues: Unremarkable. Vasculature: Atherosclerotic changes of the aorta. No abdominal aortic aneurysm. Lymph nodes: Unremarkable. No enlarged lymph nodes. IMPRESSION: Diverticulosis, without acute diverticulitis. No small bowel obstruction. No free intraperitoneal air. Electronically signed by: Amanuel Ruiz MD 08/21/24 02:[address] 08/21/24 01:39 Exam(s): CT HEAD Without Contrast EXAM: CT Head Without Intravenous Contrast CLINICAL HISTORY: Reason for exam: syncope, fever. TECHNIQUE: Axial computed tomography images of the head/brain without intravenous contrast. CTDI is 48 mGy and DLP is 799 mGy-cm. Automated exposure control was utilized for the study. A dose lowering technique was utilized adhering to the principles of ALARA. COMPARISON: No relevant prior studies available. FINDINGS: No acute intracranial hemorrhage. No midline shift or mass effect. The territorial ayala-white matter differentiation is maintained throughout. The ventricles and sulci are commensurate with age. The visualized orbits appear grossly unremarkable. The calvarium is intact. The visualized paranasal sinuses and mastoid air cells are grossly clear. IMPRESSION: No acute intracranial hemorrhage, midline shift, or mass effect. Electronically signed by: Amanuel Ruiz MD 08/21/24 02:26 AM Ankle X-Ray 08/22/24 07:00 FL ankle RT min 3V RTN CLINICAL HISTORY: RIGHT FIBULA ORIFORIF of the right ankle COMPARISON STUDY: Right ankle radiographs 08/21/2024 FLUOROSCOPY TIME: 22.8 seconds FLUOROSCOPY IMAGES: 3 EXPOSURE DOSE: 0.5702 mGy FINDINGS: Status post plate and screw fusion of the acute distal fibular fracture along with distal syndesmotic repair. There is now satisfactory alignment. No unexpected opaque foreign bodies. IMPRESSION: Fluoroscopic assistance as above. ACT 112: Negative or not required by law. Electronically signed by: Caden Masterson M.D. 08/22/2024 2:36 PM
--- NOTE | 2024-08-24 15:35 | Infectious Disease Consult ---
Date of Service August 24, 2024 Telehealth Information I performed this visit using a real-time telehealth connection between my location and the patients location ([facility]). After connecting through interactive tele-video, patient was identified by name and date of and/or wristband check.Patient (or authorized healthcare nutrition representative) was informed that this was a telemedicine visit and it was being conducted confidentially over secure lines. My office door was closed and no one else was present in the room with me.Patient (or authorized healthcare nutrition representative) provided consent to proceed with the visit, expressed an understanding of privacy and security of the telemedicine visit, and gave permission to have a hospital nutrition representative in the room in order to assist with the visit and to conduct portions of the visit, as needed. I informed the patient (or authorized healthcare nutrition representative) that I reviewed their record and presented the opportunity for them to ask any questions regarding the visit today. The patient agreed to participate. Assessment & Plan (1) Pelvic inflammatory disease (PID): (2) Problem with vaginal pessary: (3) Fracture of distal end of right fibula: Plan Since she has been afebrile for over 48 hrs, please change cefdinir to oral Keflex 500 mg PO QID (for MSSA from vaginal discharge), start oral Levaquin 750 mg daily (for gram neg endometritis) and change flagyl to 500 mg BID (for trichomonas and gardnerella). Aim for 7 day course of flagyl 500 mg PO BID and 2 week course of oral keflex and Levaquin. Before discharge, please obtain a vaginosis panel (ismael/gardnerella/trichomonas PCR probe) and chlamydia/gonorrhea from vaginal/cervical swab. Thank you for consulting Infectious Disease. History of Present Illness History of Present Illness Ms. Hawkins is a 74-year-old woman with medical history significant for HTN, HLD, vitamin D deficiency, uterine prolapse/stress urine incontinence and TIA who was admitted to [facility] on 08/21/2024 because of generalized weakness and syncope. She mainly reported feeling extremely weak, dizzy with poor appetite and when she tried to walk to the bathroom in the evening of the day of presentation, she fell down on her right leg. She also mentioned that the condition was associated with diarrhea and she reported that she had a pessary placed around 1 week ago, few days before the symptoms stareted. On presentation, she was found to be febrile at 39.3, tachycardic at 107; otherwise, the rest of the vitals were within normal limits. Initial workup showed leukocytosis of 14.6 (ANC 13.6), hypokalemia of 3.1, UA with more than 50 WBC but no bacteria, negative stool studies including PCR panel and C diff toxin gene, negative respiratory viral panel. Different imaging including chest x-ray and abdomen/pelvis CT were not impressive. X-ray of the ankle (right) showed acute oblique minimally displaced distal diaphyseal right fibula fracture as well as acute mildly displaced fracture of the medial malleolus with possible acute nondisplaced fracture of the posterior distal right tibia. She was eventually taken by orthopedic on 08/22 and underwent a right distal fibula fracture open reduction and internal fixation. Because of the picture of sepsis on presentation, the ID team was consulted for further recommendations and to help guide antibiotic treatment. Allergies Allergy/AdvReac Type Severity Reaction Status Date / Time fluoxetine Allergy Severe chest pain Verified 08/22/24 11:24 oxycodone Allergy Severe HALLUCINATI Verified 08/22/24 11:24 ONS codeine Allergy Mild urticaria Verified 08/22/24 11:25 and hallucinations amlodipine AdvReac Intermediate hypertension,foot Verified 08/22/24 11:24 and leg cramps atorvastatin AdvReac Intermediate Muscle Pain Verified 08/22/24 11:24 diphenhydramine AdvReac Intermediate hot Verified 08/23/24 20:22 [From Benadryl] flashes as per px doxycycline AdvReac Intermediate HTN and Verified 08/22/24 11:24 burning of hands indapamide AdvReac Intermediate leg and Verified 08/22/24 11:24 foot cramps lisinopril AdvReac Intermediate Hypertensio Verified 08/22/24 11:24 n losartan AdvReac Intermediate Hypertensio Verified 08/22/24 11:24 n morphine AdvReac Intermediate Hallucinati Verified 08/22/24 11:25 ng Home Medications Medication Instructions Recorded Confirmed Type aspirin 81 mg tablet,delayed 81 mg PO DAILY 08/21/24 08/21/24 History release chlorthalidone 25 mg tablet 12.5 mg PO DAILY 08/21/24 08/21/24 History clonidine 0.2 mg/24 hr weekly 0.2 mg topical WK 08/21/24 08/21/24 History transdermal patch clonidine HCl 0.1 mg tablet 0.1 mg PO UD PRN htn 08/21/24 08/21/24 History conjugated estrogens 0.625 mg/gram 0.625 mg vaginal UD PRN Vaginal 08/21/24 08/21/24 History vaginal cream (Premarin) Dryness Patient History Medical History (Updated 08/24/24 @ 15:32 by Earl Bishop MD) Encounter for pre-operative examination Hypokalemia TIA (transient ischemic attack) Primary stress urinary incontinence Hyperlipemia Hypertension Sepsis Surgical History History of colon surgery History of hysterectomy Social History Smoking Status: Former smoker Hx Alcohol Use: No Hx Substance Use: No Preferred Language: Portuguese Communication Ability: Effective [place] Required: No Beliefs That Will Affect Care: None Current Living Situation: Spouse Other Information That Helps Us Care for You: No Feels Safe at Home: Yes Safety Concerns: Feels Safe At This Time Assistive Devices: Raised Toilet Seat, Walker and Other Review of Systems Neg except for what was mentioned in H&P. Physical Exam Couldn't be performed as the encounter was conducted via telemed. Results & Data Vital Signs (Past 12 Hours) Vital Signs Temp Pulse Pulse Resp BP BP Pulse Ox 08/24/24 14:57 86 08/24/24 11:18 37.0 C 73 18 152/81 H 94 08/24/24 07:33 36.6 C 75 18 167/89 H 92 08/24/24 07:05 76 08/24/24 03:54 36.7 C 85 18 138/64 94 O2 Del Method 08/24/24 14:57 08/24/24 11:18 Room Air 08/24/24 07:33 Room Air 08/24/24 07:05 08/24/24 03:54 Room Air Laboratory Results Microbiology: 08/21: 1 set of blood culture negative to date 08/21: Vaginal culture growing MSSA 08/21: Urine culture with no growth Diagnostic Findings Imaging: Chest x-ray on 08/21: No acute pathologic changes CT scan of the abdomen pelvis on 08/21:Diverticulosis, without acute diverticulitis. No small bowel obstruction. No free intraperitoneal air. (3) Fracture of distal end of right fibula Encounter type: initial encounter Fracture morphology: unspecified fracture morphology Fracture type: closed Qualified Code(s): S82.831A - Other fracture of upper and lower end of right fibula, initial encounter for closed fracture
[2024-08-24] MEDS ORDERED: Nursing to Pharmacy Communication SCH (19:00)
[2024-08-24] MEDS: cephALEXin 500 MG CAP PO SCH (21:13)
[2024-08-24] MEDS: levoFLOXacin 750 MG TAB PO SCH (21:14)
[2024-08-25] MEDS: POTASSIUM CHLORIDE CRTAB 20 MEQ TABCR PO STA (08:30)
[2024-08-25] MEDS ORDERED: levoFLOXacin 750 MG TAB PO SCH (11:00)
[2024-08-25] MEDS: LOPERAMIDE HCL 2 MG CAP PO SCH (11:54)
--- NOTE | 2024-08-25 12:42 | Hospitalist Progress Note ---
Date of Service August 25, 2024 Assessment & Plan (1) Sepsis: Plan: 74-year-old female with past medical history significant for hypertension, hyperlipidemia, vitamin D deficiency, vaginal dryness, stress urine incontinence, osteopenia, history of colon surgery, history of TIA comes because of sepsis and syncope. Recent pessary placement. Sepsis Meets criteria for sepsis with temp spike, tachycardia and elevated WBC Lactic acid normal, at 1.8 Blood pressure stable Urinalysis and urine culture with no sig growth cxr ok. resp biofire negative ct abd/pelvis no acute findings ER gave Rocephin Originally treated with Zosyn, IV fluids Recently pessary was placed for cystocele and since then having itchiness, soreness and vaginal discharge. BINDERY MACHINE TENDER consulted, appreciate recs -pessary was removed, cultx sent to lab, discussed w/ mud car worker (Dr. Ruiz - no real concern for vaginal infection) Infectious Disease was consulted, recommended/stated the following: "Pelvic inflammatory disease (PID)...Since she has been afebrile for over 48 hrs, please change cefdinir to oral Keflex 500 mg PO QID (for MSSA from vaginal discharge), start oral Levaquin 750 mg daily (for gram neg endometritis) and change flagyl to 500 mg BID (for trichomonas and gardnerella). Aim for 7 day course of flagyl 500 mg PO BID and 2 week course of oral keflex and Levaquin. Before discharge, please obtain a vaginosis panel (ismael/gardnerella/trichomonas PCR probe) and chlamydia/gonorrhea from vaginal/cervical swab." Vaginosis panel and vaginal/cervical swab discussed with BINDERY MACHINE TENDER who advised to obtain urine g/c and that vaginosis panel will be negative since pt already received flagyl. GC to be obtained after pt consents Continue with po Keflex, Flagyl and Levaquin at this time. Syncope and fall Likely from sepsis Nauseous and dizzy and poor appetite yesterday EKG no acute findings and troponin negative Ct head unremarkable checked serial cardiac enzymes and echo Monitoring on telemetry Right tibia/fibula fracture From the fall from syncope S/p splint in the ER Orthopedics consulted and s/p surgery on (08/22/24). Ortho recommended/stated the following: " She is postop day 2 from a right distal fibula ORIF with syndesmotic fixation. She can work with physical therapy/Occupational Therapy for gait training. She will be nonweightbearing the right lower extremity. She will see me at 2 weeks postop as an outpatient. We recommend 81 mg aspirin twice a day for DVT prophylaxis. Her splint will remain in place until she sees me at her 2-week postop appointment. Please contact orthopedics with any questions or concerns." Hypokalemia Hypophosphatemia Replete as needed Diarrhea Stool testing negative C diff negative PRN loperamide Continue probiotic Improving Hypertension On clonidine patch (because of allergies )which will be continued for now and close monitor Will hold chlorthalidone Patient is also on clonidine p.o. as needed which will be held Closely monitor History of TIA On aspirin Diet: HH DVT prophylaxis - per ortho recommend ASA BID Dispo: PT/OT recommending acute rehab Admission and Anticipated Discharge Date Admission Date: August 21, 2024 Subjective patient was seen in the AM. Sitting in chair at bedside with right leg on pillow Right leg elevated Notes that her symptoms of vaginal itching had improved. Also notes that the diarrhea seems to be slowing down especially with use of as needed loperamide. Her daughter was called and updated. Review of Systems Review of Systems: All systems reviewed & are unremarkable except as noted in Subjective Physical Exam Physical Exam: General: Alert, oriented. No acute distress Psych: Appropriate mood and affect HEENT: NC/AT CV: RRR Resp: Breath sounds clear bilaterally, no increased effort of breathing Abdomen: Soft, nontender exam: labia covered with barrier cream, areas of erythema noted Extremities: No edema in lower extremities bilaterally. Results & Data Results & Data Vital Signs (Past 12 Hours) Vital Signs Temp Pulse Pulse Resp BP Pulse Ox O2 Del Method 08/25/24 11:05 36.6 C 93 H 18 154/84 H 95 Room Air 08/25/24 07:34 82 08/25/24 07:31 36.6 C 86 18 163/103 H 94 Room Air 08/25/24 03:20 36.7 C 78 16 161/83 H 92 Room Air 08/25/24 00:41 84 Diagnostic Findings Chest X-Ray 08/21/24 00:20 XR chest 1V portable HISTORY: 74 years-old Female Chest pain, nonspecific COMPARISON: 10/08/2023 TECHNIQUE: AP view of the chest FINDINGS: Cardiac silhouette is normal in size. No pneumothorax, pleural effusion or airspace consolidation. Sigmoidal thoracolumbar scoliosis. IMPRESSION: No acute process. ACT 112: Negative or not required by law. The above report was generated using voice recognition software. It may contain grammatical, syntax or spelling errors. Electronically signed by: Caden Masterson M.D. 08/21/2024 6:48 AM Ankle X-Ray 08/21/24 00:40 XR ankle RT min 3V routine CLINICAL HISTORY: Right ankle pain following fall. COMPARISON: None FINDINGS: There is an acute oblique minimally displaced fracture of the distal diaphysis of the right fibula. Fracture is displaced 3 mm. There is also an acute minimally displaced fracture of the medial malleolus. Mild medial ankle mortise widening is present. There is a possible acute nondisplaced posterior distal right tibial fracture. There is right ankle soft tissue swelling. IMPRESSION: 1. Acute oblique minimally displaced distal diaphyseal right fibular fracture. 2. Acute mildly displaced fracture of the medial malleolus and a possible acute nondisplaced fracture of the posterior distal right tibia. 3. Mild medial ankle mortise widening. 4. Ankle soft tissue swelling. ACT 112: Negative or not required by law. Electronically signed by: Hugo Curtis M.D. 08/21/2024 6:58 AM Abdomen/Pelvis CT 08/21/24 01:39 Exam(s): CT ABDOMEN + PELVIS With Contrast IV Amt: 93 ML OPTIRAY 320 EXAM: CT Abdomen and Pelvis With Intravenous Contrast CLINICAL HISTORY: Reason for exam: fever, syncope, vaginal discharge, pessary. TECHNIQUE: Axial computed tomography images of the abdomen and pelvis with intravenous contrast. CTDI is 48 mGy and DLP is 799 mGy-cm. Automated exposure control was utilized for the study. A dose lowering technique was utilized adhering to the principles of ALARA. CONTRAST: Patient received 93 ML OPTIRAY 320 of IV contrast COMPARISON: CT abdomen and pelvis October 08, 2023. FINDINGS: Lung bases: Unremarkable. No mass. No consolidation. ABDOMEN: Liver: Unremarkable. No mass. Gallbladder and bile ducts: Unremarkable. No calcified stones. No ductal dilation. Pancreas: Unremarkable. No mass. No ductal dilation. Spleen: Unremarkable. No splenomegaly. Adrenals: Unremarkable. No mass. Kidneys and ureters: Unremarkable. No solid mass. No hydronephrosis. Stomach and bowel: Diverticulosis, without acute diverticulitis. No small bowel obstruction. No free intraperitoneal air. PELVIS: Appendix: No findings to suggest acute appendicitis. Bladder: Unremarkable. No mass. Reproductive: Pessary in the pelvis. ABDOMEN and PELVIS: Intraperitoneal space: Unremarkable. No free air. No significant fluid collection. Bones/joints: Degenerative changes of the spine. Scoliosis. No acute fracture. No dislocation. Soft tissues: Unremarkable. Vasculature: Atherosclerotic changes of the aorta. No abdominal aortic aneurysm. Lymph nodes: Unremarkable. No enlarged lymph nodes. IMPRESSION: Diverticulosis, without acute diverticulitis. No small bowel obstruction. No free intraperitoneal air. Electronically signed by: Amanuel Ruiz MD 08/21/24 02:[address] 08/21/24 01:39 Exam(s): CT HEAD Without Contrast EXAM: CT Head Without Intravenous Contrast CLINICAL HISTORY: Reason for exam: syncope, fever. TECHNIQUE: Axial computed tomography images of the head/brain without intravenous contrast. CTDI is 48 mGy and DLP is 799 mGy-cm. Automated exposure control was utilized for the study. A dose lowering technique was utilized adhering to the principles of ALARA. COMPARISON: No relevant prior studies available. FINDINGS: No acute intracranial hemorrhage. No midline shift or mass effect. The territorial ayala-white matter differentiation is maintained throughout. The ventricles and sulci are commensurate with age. The visualized orbits appear grossly unremarkable. The calvarium is intact. The visualized paranasal sinuses and mastoid air cells are grossly clear. IMPRESSION: No acute intracranial hemorrhage, midline shift, or mass effect. Electronically signed by: Amanuel Ruiz MD 08/21/24 02:26 AM Ankle X-Ray 08/22/24 07:00 FL ankle RT min 3V RTN CLINICAL HISTORY: RIGHT FIBULA ORIFORIF of the right ankle COMPARISON STUDY: Right ankle radiographs 08/21/2024 FLUOROSCOPY TIME: 22.8 seconds FLUOROSCOPY IMAGES: 3 EXPOSURE DOSE: 0.5702 mGy FINDINGS: Status post plate and screw fusion of the acute distal fibular fracture along with distal syndesmotic repair. There is now satisfactory alignment. No unexpected opaque foreign bodies. IMPRESSION: Fluoroscopic assistance as above. ACT 112: Negative or not required by law. Electronically signed by: Caden Masterson M.D. 08/22/2024 2:36 PM
[2024-08-25] MEDS: POTASSIUM CHLORIDE CRTAB 20 MEQ TABCR PO SCH (20:35)
[2024-08-26 07:53] LABS: Basophils # (auto) 0.06 K/uL (0.00-0.20); Basophils % (auto) 0.8 %; Eosinophils # (auto) 0.35 K/uL (0.00-0.50); Eosinophils % (auto) 4.8 %; Hematocrit (blood only) 40.1 % (37.0-47.0); Hemoglobin 13.2 g/dl (12.0-16.0); Immature Granulocytes # (auto) 0.28 K/uL (0.01-0.20); Immature Granulocytes % (auto) 3.9 %; Lymphocytes # (auto) 2.08 K/uL (1.20-3.40); Lymphocytes % (auto) 28.8 %; Mean Corpuscular Hemoglobin 29.2 pg (25.0-34.0); Mean Corpuscular Hgb Conc 32.9 g/dL (32.0-36.0); Mean Corpuscular Volume 88.7 fL (80.0-100.0); Mean Platelet Volume 8.4 fL (9.4-12.4); Monocytes # (auto) 0.65 K/uL (0.11-0.59); Neutrophils # (auto) 3.81 K/uL (1.40-6.50); Neutrophils % (auto) 52.7 %; Platelet Count 331 K/uL (130-400); RDW Coefficient of Variation 12.8 % (11.5-14.5); RDW Standard Deviation 41.1 fL (36.4-46.3); Red Blood Count 4.52 M/uL (4.20-5.40); White Blood Count 7.23 K/ul (4.8-10.8)
[2024-08-26 08:29] LABS: Albumin Globulin Ratio 1.3 (0.9-2); Albumin Level 3.4 gm/dl (3.4-5.0); BUN Creatinine Ratio 20.5 (10-20); Bilirubin,Total 0.5 mg/dl (0.2-1.0); Calcium 8.8 mg/dl (8.6-10.3); Creatinine Clr Calc Pharmacy 102.8 ml/min; Globulin 2.6 gm/dl (2.5-4.0); Magnesium 2.1 mg/dl (1.7-2.4); Potassium 3.6 mmol/L (3.5-5.1)
--- NOTE | 2024-08-26 10:05 | Hospitalist Progress Note ---
Date of Service August 26, 2024 Assessment & Plan (1) Sepsis: Plan: 74-year-old female with past medical history significant for hypertension, hyperlipidemia, vitamin D deficiency, vaginal dryness, stress urine incontinence, osteopenia, history of colon surgery, history of TIA comes because of sepsis and syncope. Recent pessary placement. Sepsis Meets criteria for sepsis with temp spike, tachycardia and elevated WBC Lactic acid normal, at 1.8 Blood pressure stable Urinalysis and urine culture with no sig growth cxr ok. resp biofire negative ct abd/pelvis no acute findings ER gave Rocephin Originally treated with Zosyn, IV fluids Recently pessary was placed for cystocele and since then having itchiness, soreness and vaginal discharge. SOUND TESTER consulted, appreciate recs -pessary was removed, cultx sent to lab, discussed w/ reliability technologist (Dr. Ruiz - no real concern for vaginal infection) Infectious Disease was consulted, recommended/stated the following: "Pelvic inflammatory disease (PID)...Since she has been afebrile for over 48 hrs, please change cefdinir to oral Keflex 500 mg PO QID (for MSSA from vaginal discharge), start oral Levaquin 750 mg daily (for gram neg endometritis) and change flagyl to 500 mg BID (for trichomonas and gardnerella). Aim for 7 day course of flagyl 500 mg PO BID and 2 week course of oral keflex and Levaquin. Before discharge, please obtain a vaginosis panel (ismael/gardnerella/trichomonas PCR probe) and chlamydia/gonorrhea from vaginal/cervical swab." Vaginosis panel and vaginal/cervical swab discussed with SOUND TESTER who advised to obtain urine g/c and that vaginosis panel will be negative since pt already received flagyl. GC to be obtained after pt consents Continue with po Keflex, Flagyl and Levaquin at this time. Syncope and fall Likely from sepsis Nauseous and dizzy and poor appetite yesterday EKG no acute findings and troponin negative Ct head unremarkable checked serial cardiac enzymes and echo Monitoring on telemetry Right tibia/fibula fracture From the fall from syncope S/p splint in the ER Orthopedics consulted and s/p surgery on (08/22/24). Ortho recommended/stated the following: " She is postop day 2 from a right distal fibula ORIF with syndesmotic fixation. She can work with physical therapy/Occupational Therapy for gait training. She will be nonweightbearing the right lower extremity. She will see me at 2 weeks postop as an outpatient. We recommend 81 mg aspirin twice a day for DVT prophylaxis. Her splint will remain in place until she sees me at her 2-week postop appointment. Please contact orthopedics with any questions or concerns." Hypokalemia Hypophosphatemia Replete as needed Diarrhea Stool testing negative C diff negative Schedule loperamide at this time Continue probiotic Improving Hypertension On clonidine patch (because of allergies )which will be continued for now and close monitor Will hold chlorthalidone Patient is also on clonidine p.o. as needed which will be held Closely monitor History of TIA On aspirin Diet: HH DVT prophylaxis - per ortho recommend ASA BID Dispo: PT/OT recommending acute rehab Admission and Anticipated Discharge Date Admission Date: August 21, 2024 Sheryl Keane was seen initially with nursing at bedside. States that her vaginitis symptoms seem to be improving, has been using the barrier cream. Notes that her bowel movements have been decreasing though they are still present. Does note that the diarrhea was present before admission after she gave herself on some milk of magnesia at home. States overall symptoms are improving. Review of Systems Review of Systems: All systems reviewed & are unremarkable except as noted in Subjective Physical Exam Physical Exam: General: Alert, oriented. No acute distress Psych: Appropriate mood and affect HEENT: NC/AT CV: RRR Resp: Breath sounds clear bilaterally, no increased effort of breathing Abdomen: Soft, nontender exam: labia with areas of erythema noted Extremities: No edema in lower extremities bilaterally. Results & Data Results & Data Vital Signs (Past 12 Hours) Vital Signs Temp Pulse Pulse Resp BP Pulse Ox O2 Del Method 08/26/24 08:10 89 08/26/24 07:07 37.0 C 75 18 155/79 H 95 Room Air 08/26/24 02:41 37.2 C 86 16 112/67 95 Room Air 08/25/24 23:46 90 08/25/24 22:29 36.6 C 85 16 151/83 H 95 Room Air
[2024-08-26] MEDS ORDERED: Nursing to Pharmacy Communication SCH (16:30)
[2024-08-27 06:19] LABS: Basophils # (auto) 0.06 K/uL (0.00-0.20); Basophils % (auto) 0.9 %; Eosinophils # (auto) 0.36 K/uL (0.00-0.50); Eosinophils % (auto) 5.4 %; Hematocrit (blood only) 36.9 % (37.0-47.0); Hemoglobin 12.4 g/dl (12.0-16.0); Immature Granulocytes # (auto) 0.32 K/uL (0.01-0.20); Immature Granulocytes % (auto) 4.8 %; Lymphocytes # (auto) 1.99 K/uL (1.20-3.40); Mean Corpuscular Hgb Conc 33.6 g/dL (32.0-36.0); Mean Corpuscular Volume 89.1 fL (80.0-100.0); Mean Platelet Volume 8.5 fL (9.4-12.4); Monocytes # (auto) 0.66 K/uL (0.11-0.59); Monocytes % (auto) 9.9 %; Neutrophils # (auto) 3.25 K/uL (1.40-6.50); Platelet Count 323 K/uL (130-400); RDW Standard Deviation 41.7 fL (36.4-46.3); Red Blood Count 4.14 M/uL (4.20-5.40); White Blood Count 6.64 K/ul (4.8-10.8)
[2024-08-27 06:36] LABS: BUN Creatinine Ratio 23.3 (10-20); Calcium 8.6 mg/dl (8.6-10.3); Creatinine Clr Calc Pharmacy 104.1 ml/min; Magnesium 2.1 mg/dl (1.7-2.4); Phosphorus 3.3 mg/dl (2.5-4.9)
[2024-08-27] MEDS: LOPERAMIDE HCL 2 MG CAP PO SCH (09:07)
--- NOTE | 2024-08-27 11:58 | Hospitalist Progress Note ---
Date of Service August 27, 2024 Assessment & Plan (1) Sepsis: Plan: 74-year-old female with past medical history significant for hypertension, hyperlipidemia, vitamin D deficiency, vaginal dryness, stress urine incontinence, osteopenia, history of colon surgery, history of TIA comes because of sepsis and syncope. Recent pessary placement. Sepsis Possible Pelvic Inflammatory Disease Meets criteria for sepsis with temp spike, tachycardia and elevated WBC Lactic acid normal, at 1.8 Blood pressure stable Urinalysis and urine culture with no sig growth cxr ok. resp biofire negative ct abd/pelvis no acute findings ER gave Rocephin Originally treated with Zosyn, IV fluids Recently pessary was placed for cystocele and since then having itchiness, soreness and vaginal discharge. PROFESSIONAL ORGANIZER consulted, appreciate recs -pessary was removed, cultx sent to lab, discussed w/ director of digital platforms (Dr. Ruiz - no real concern for vaginal infection) Infectious Disease was consulted, recommended/stated the following: "Pelvic inflammatory disease (PID)...Since she has been afebrile for over 48 hrs, please change cefdinir to oral Keflex 500 mg PO QID (for MSSA from vaginal discharge), start oral Levaquin 750 mg daily (for gram neg endometritis) and change flagyl to 500 mg BID (for trichomonas and gardnerella). Aim for 7 day course of flagyl 500 mg PO BID and 2 week course of oral keflex and Levaquin. Before discharge, please obtain a vaginosis panel (ismael/gardnerella/trichomonas PCR probe) and chlamydia/gonorrhea from vaginal/cervical swab." Vaginosis panel and vaginal/cervical swab discussed with PROFESSIONAL ORGANIZER who advised to obtain urine g/c and that vaginosis panel will be negative since pt already received flagyl. GC to be obtained after pt consents Continue with po Keflex (3/14 days), Flagyl (3/7 days) and Levaquin (3/14 days) at this time. Syncope and fall Likely from sepsis Nauseous and dizzy and poor appetite yesterday EKG no acute findings and troponin negative Ct head unremarkable checked serial cardiac enzymes and echo Monitoring on telemetry Right tibia/fibula fracture From the fall from syncope S/p splint in the ER Orthopedics consulted and s/p surgery on (08/22/24). Ortho recommended/stated the following: " She is postop day 2 from a right distal fibula ORIF with syndesmotic fixation. She can work with physical therapy/Occupational Therapy for gait training. She will be nonweightbearing the right lower extremity. She will see me at 2 weeks postop as an outpatient. We recommend 81 mg aspirin twice a day for DVT prophylaxis. Her splint will remain in place until she sees me at her 2-week postop appointment. Please contact orthopedics with any questions or concerns." Hypokalemia Hypophosphatemia Replete as needed Diarrhea Stool testing negative C diff negative Schedule loperamide at this time Continue probiotic Improving Hypertension On clonidine patch (because of allergies )which will be continued for now and close monitor Will hold chlorthalidone Patient is also on clonidine p.o. as needed which will be held Closely monitor History of TIA On aspirin Diet: HH DVT prophylaxis - per ortho recommend ASA BID Dispo: PT/OT recommending acute rehab Admission and Anticipated Discharge Date Admission Date: August 21, 2024 Subjective patient was seen sitting in a chair at bedside Overnight did not need loperamide to help with her diarrhea however requesting at this morning as she said her stools are now more loose once more No worse vaginitis symptoms States overall much improved and looking forward to possible discharge tomorrow Review of Systems Review of Systems: All systems reviewed & are unremarkable except as noted in Subjective Physical Exam Physical Exam: General: Alert, oriented. No acute distress Psych: Appropriate mood and affect HEENT: NC/AT CV: RRR Resp: Breath sounds clear bilaterally, no increased effort of breathing Abdomen: Soft, nontender exam: labia with areas of erythema noted Extremities: R lower extremity in cast/ssplint Results & Data Results & Data Vital Signs (Past 12 Hours) Vital Signs Temp Pulse Pulse Resp BP Pulse Ox O2 Del Method 08/27/24 11:51 36.8 C 77 18 161/65 H 98 Room Air 08/27/24 07:55 80 08/27/24 07:21 36.9 C 77 18 136/79 95 Room Air 08/27/24 03:07 36.8 C 79 16 116/74 96 Room Air
[2024-08-28 06:46] LABS: Basophils # (auto) 0.06 K/uL (0.00-0.20); Basophils % (auto) 0.9 %; Eosinophils # (auto) 0.27 K/uL (0.00-0.50); Hematocrit (blood only) 39.6 % (37.0-47.0); Hemoglobin 13.3 g/dl (12.0-16.0); Immature Granulocytes # (auto) 0.28 K/uL (0.01-0.20); Immature Granulocytes % (auto) 4.2 %; Lymphocytes # (auto) 2.02 K/uL (1.20-3.40); Lymphocytes % (auto) 30.1 %; Mean Corpuscular Hemoglobin 30.2 pg (25.0-34.0); Mean Corpuscular Hgb Conc 33.6 g/dL (32.0-36.0); Mean Platelet Volume 8.5 fL (9.4-12.4); Monocytes # (auto) 0.71 K/uL (0.11-0.59); Monocytes % (auto) 10.6 %; Neutrophils # (auto) 3.38 K/uL (1.40-6.50); Neutrophils % (auto) 50.2 %; Platelet Count 404 K/uL (130-400); RDW Coefficient of Variation 13.2 % (11.5-14.5); RDW Standard Deviation 42.5 fL (36.4-46.3); White Blood Count 6.72 K/ul (4.8-10.8)
[2024-08-28 07:12] LABS: BUN Creatinine Ratio 19.6 (10-20); Calcium 8.8 mg/dl (8.6-10.3); Creatinine Clr Calc Pharmacy 87.5 ml/min; Magnesium 2.1 mg/dl (1.7-2.4); Phosphorus 3.5 mg/dl (2.5-4.9); Potassium 3.7 mmol/L (3.5-5.1)
--- NOTE | 2024-08-28 11:37 | Hospitalist Progress Note ---
Date of Service August 28, 2024 Assessment & Plan (1) Sepsis: Plan: 74-year-old female with past medical history significant for hypertension, hyperlipidemia, vitamin D deficiency, vaginal dryness, stress urine incontinence, osteopenia, history of colon surgery, history of TIA comes because of sepsis and syncope. Recent pessary placement. Sepsis Possible Pelvic Inflammatory Disease Meets criteria for sepsis with temp spike, tachycardia and elevated WBC Lactic acid normal, at 1.8 Blood pressure stable Urinalysis and urine culture with no sig growth cxr ok. resp biofire negative ct abd/pelvis no acute findings ER gave Rocephin Originally treated with Zosyn, IV fluids Recently pessary was placed for cystocele and since then having itchiness, soreness and vaginal discharge. CHILD SUPPORT INVESTIGATOR consulted, appreciate recs -pessary was removed, cultx sent to lab, discussed w/ broadcast technician (Dr. Ruiz - no real concern for vaginal infection) Infectious Disease was consulted, recommended/stated the following: "Pelvic inflammatory disease (PID)...Since she has been afebrile for over 48 hrs, please change cefdinir to oral Keflex 500 mg PO QID (for MSSA from vaginal discharge), start oral Levaquin 750 mg daily (for gram neg endometritis) and change flagyl to 500 mg BID (for trichomonas and gardnerella). Aim for 7 day course of flagyl 500 mg PO BID and 2 week course of oral keflex and Levaquin. Before discharge, please obtain a vaginosis panel (ismael/gardnerella/trichomonas PCR probe) and chlamydia/gonorrhea from vaginal/cervical swab." Vaginosis panel and vaginal/cervical swab discussed with CHILD SUPPORT INVESTIGATOR who advised to obtain urine g/c and that vaginosis panel will be negative since pt already received flagyl. GC to be obtained after pt consents Continue with po Keflex (4/14 days), Flagyl (4/7 days) and Levaquin (4/14 days) at this time. Syncope and fall Likely from sepsis Nauseous and dizzy and poor appetite yesterday EKG no acute findings and troponin negative Ct head unremarkable checked serial cardiac enzymes and echo Monitoring on telemetry Right tibia/fibula fracture From the fall from syncope S/p splint in the ER Orthopedics consulted and s/p surgery on (08/22/24). Ortho recommended/stated the following: " She is postop day 2 from a right distal fibula ORIF with syndesmotic fixation. She can work with physical therapy/Occupational Therapy for gait training. She will be nonweightbearing the right lower extremity. She will see me at 2 weeks postop as an outpatient. We recommend 81 mg aspirin twice a day for DVT prophylaxis. Her splint will remain in place until she sees me at her 2-week postop appointment. Please contact orthopedics with any questions or concerns." Hypokalemia Hypophosphatemia Replete as needed Diarrhea Stool testing negative C diff negative Schedule loperamide at this time Continue probiotic Improving Hypertension On clonidine patch (because of allergies )which will be continued for now and close monitor Will hold chlorthalidone Patient is also on clonidine p.o. as needed which will be held Closely monitor History of TIA On aspirin Diet: HH DVT prophylaxis - per ortho recommend ASA BID Dispo: PT/OT recommending acute rehab Admission and Anticipated Discharge Date Admission Date: August 21, 2024 Subjective Patient was seen sitting up in bed States continues to have improvement in symptoms Notes still having diarrhea, however much better has been trying to sit up after she takes the pills Review of Systems Review of Systems: All systems reviewed & are unremarkable except as noted in Subjective Physical Exam Physical Exam: General: Alert, oriented. No acute distress Psych: Appropriate mood and affect HEENT: NC/AT CV: RRR Resp: Breath sounds clear bilaterally, no increased effort of breathing Abdomen: Soft, nontender Extremities: R lower extremity in cast/ssplint Results & Data Results & Data Vital Signs (Past 12 Hours) Vital Signs Temp Pulse Pulse Resp BP BP Pulse Ox 08/28/24 11:00 36.8 C 77 17 129/77 98 08/28/24 07:13 36.9 C 69 18 134/76 94 08/28/24 07:00 80 08/28/24 02:45 36.6 C 80 16 119/73 96 08/28/24 00:22 74 O2 Del Method 08/28/24 11:00 Room Air 08/28/24 07:13 Room Air 08/28/24 07:00 08/28/24 02:45 Room Air 08/28/24 00:22
--- NOTE | 2024-08-28 15:17 | Orthopedic Progress Note ---
Date of Service August 28, 2024 Assessment & Plan (1) Fracture of distal end of right fibula: - She is postop day 6 from a right distal fibula ORIF with syndesmotic fixation. She can work with physical therapy/Occupational Therapy for gait training. She will be nonweightbearing the right lower extremity. She will see me at 2 weeks postop as an outpatient. We recommend 81 mg aspirin twice a day for DVT prophylaxis. Her splint will remain in place until she sees me at her 2-week postop appointment. Please contact orthopedics with any questions or concerns. Subjective Operation Date: 08/22/24 12:30 Actual Procedures p Right distal fibula Fracture Open Reduction Internal Fixation with Syndesmosis fixation (Right) - Ronak Pruitt MD Diya is a 74-year-old female who is postop day 6 from a right distal fibula ORIF with syndesmotic fixation. She states in regards to her right ankle, she is doing quite well. States that her pain is a 3 out of 10 at this point. She has a working physical therapy to the bedside commode as well as doing ambul ation trials. She is nonweightbearing the right lower extremity but using a walker for ambulation. She is doing exercises in her right lower extremity as well. She is still in the hospital for nonorthopedic reasons. Review of Systems All systems reviewed & are unremarkable except as noted in HPI & below. Physical Exam General: Alert and oriented. In no acute distress at my visit. Right lower extremity: Inspection unremarkable. Her splint is intact. There is no saturation of the splint. She has full range of motion of the toes. Sensation intact. Distal pulses palpated. Cap refill is 3 seconds. Results & Data Results & Data Laboratory Results . Diagnostic Findings . PG Care Time/CCT Total # of Minutes Spent Total Time Spent with Patient: Total time spent is greater than 50% in coordination of care (as documented) at patient's floor/unit and/or counseling patient: Coding Diagnoses Fracture of distal end of right fibula S82.831A Encounter type: initial encounter Fracture morphology: unspecified fracture morphology Fracture type: closed (1) Fracture of distal end of right fibula Encounter type: initial encounter Fracture morphology: unspecified fracture morphology Fracture type: closed Qualified Code(s): S82.831A - Other fracture of upper and lower end of right fibula, initial encounter for closed fracture
[2024-08-28 15:42] VITALS: RESP 18
[2024-08-28] MEDS: FAMOTIDINE 20 MG TAB PO SCH (21:48)
[2024-08-28 23:17] VITALS: O2SAT 95
[2024-08-29 06:36] LABS: Basophils # (auto) 0.06 K/uL (0.00-0.20); Basophils % (auto) 1.1 %; Eosinophils # (auto) 0.26 K/uL (0.00-0.50); Eosinophils % (auto) 4.8 %; Hematocrit (blood only) 39.7 % (37.0-47.0); Hemoglobin 13.3 g/dl (12.0-16.0); Immature Granulocytes # (auto) 0.21 K/uL (0.01-0.20); Immature Granulocytes % (auto) 3.9 %; Lymphocytes # (auto) 1.74 K/uL (1.20-3.40); Lymphocytes % (auto) 32.3 %; Mean Corpuscular Hemoglobin 30.1 pg (25.0-34.0); Mean Corpuscular Hgb Conc 33.5 g/dL (32.0-36.0); Mean Corpuscular Volume 89.8 fL (80.0-100.0); Mean Platelet Volume 8.3 fL (9.4-12.4); Monocytes # (auto) 0.68 K/uL (0.11-0.59); Monocytes % (auto) 12.6 %; Neutrophils # (auto) 2.43 K/uL (1.40-6.50); Neutrophils % (auto) 45.3 %; Platelet Count 391 K/uL (130-400); RDW Coefficient of Variation 13.3 % (11.5-14.5); RDW Standard Deviation 42.9 fL (36.4-46.3); Red Blood Count 4.42 M/uL (4.20-5.40); White Blood Count 5.38 K/ul (4.8-10.8)
[2024-08-29 07:03] LABS: BUN Creatinine Ratio 16.7 (10-20); Calcium 8.7 mg/dl (8.6-10.3); Creatinine Clr Calc Pharmacy 75.6 ml/min; Magnesium 2.1 mg/dl (1.7-2.4); Phosphorus 3.5 mg/dl (2.5-4.9)
--- NOTE | 2024-08-29 11:24 | Discharge Summary ---
Discharge Summary Date of Service August 29, 2024 Principal Dx & Hospital Course #1 = Principal Diagnosis (1) Sepsis: 74-year-old female with past medical history significant for hypertension, hyperlipidemia, vitamin D deficiency, vaginal dryness, stress urine incontinence, osteopenia, history of colon surgery, history of TIA comes because of sepsis and syncope. Recent pessary placement. Sepsis Possible Pelvic Inflammatory Disease Meets criteria for sepsis with temp spike, tachycardia and elevated WBC on admission Lactic acid normal, at 1.8 Blood pressure stable Urinalysis and urine culture with no sig growth Chest xray unremarkable Respiratory biofire negative ct abd/pelvis no acute findings ER gave Rocephin Originally treated with Zosyn, IV fluids Recently pessary was placed for cystocele and since then having itchiness, soreness and vaginal discharge. Removed by NURSE WOUND CARE on 08/21 NURSE WOUND CARE consulted, appreciate recs -pessary was removed, culture sent to lab, discussed w/ gi technician (Dr. Ruiz - no real concern for vaginal infection) Infectious Disease was consulted, recommended/stated the following: "Pelvic inflammatory disease (PID)...Since she has been afebrile for over 48 hrs, please change cefdinir to oral Keflex 500 mg PO QID (for MSSA from vaginal discharge), start oral Levaquin 750 mg daily (for gram neg endometritis) and change flagyl to 500 mg BID (for trichomonas and gardnerella). Aim for 7 day course of flagyl 500 mg PO BID and 2 week course of oral keflex and Levaquin. Before discharge, please obtain a vaginosis panel (ismael/gardnerella/trichomonas PCR probe) and chlamydia/gonorrhea from vaginal/cervical swab." Vaginosis panel and vaginal/cervical swab discussed with NURSE WOUND CARE who advised to obtain urine g/c and that vaginosis panel.GC testing will be negative since pt already received flagyl/antibiotics. patient was discharged with 2 days patient was discharged with 2 more days of p.o. Flagyl 500 mg twice daily, 9 more days of Levaquin 750 mg daily and 9 more days of Keflex 500 mg 4 times daily. Also discharged with a probiotic. On day of discharge, patient's symptoms had resolved and was tolerating antibiotics with help of probiotic. Also using as needed loperamide which has been helping her diarrhea. Close PCP and NURSE WOUND CARE follow-up after discharge. Syncope and fall Likely from sepsis Nauseous and dizzy and poor appetite yesterday EKG no acute findings and troponin negative Ct head unremarkable checked serial cardiac enzymes and echo Monitoring on telemetry No further episodes Right tibia/fibula fracture From the fall from syncope S/p splint in the ER Orthopedics consulted and s/p surgery on (08/22/24). Ortho recommended/stated the following: " She is postop day 2 from a right distal fibula ORIF with syndesmotic fixation. She can work with physical therapy/Occupational Therapy for gait training. She will be nonweightbearing the right lower extremity. She will see me at 2 weeks postop as an outpatient. We recommend 81 mg aspirin twice a day for DVT prophylaxis. Her splint will remain in place until she sees me at her 2-week postop appointment. Please contact orthopedics with any questions or concerns." patient discharged with aspirin 81 mg twice daily. Hypokalemia Hypophosphatemia Repleted as needed Diarrhea Stool testing negative C diff negative As needed loperamide Hypertension On clonidine patch (because of allergies )which will be continued for now and close monitor Will hold chlorthalidone, resumed on discharge Patient is also on clonidine p.o. as needed which will be held PCP follow-up History of TIA On aspirin, increase to twice daily dosing for DVT prophylaxis as noted above per recommendations of orthopedic surgery Notes For Next Care Provider please ensure close follow-up with orthopedic surgery in 2 weeks Please ensure follow-up with gynecology Medication Changes From Visit Per infectious Disease: Flagyl 500 mg p.o. twice daily for 2 more days Levaquin 750 mg daily for 9 more days Keflex 500 mg 4 times daily for 9 more days probiotic Per Orthopedic Surgery: aspirin 81 mg twice daily Admission HPI Per Admitting Provider 74-year-old female with past medical history significant for hypertension, hyperlipidemia, vitamin D deficiency, vaginal dryness, stress urine incontinence, osteopenia, history of colon surgery, history of TIA comes because of sepsis and syncope. Patient was having cystocele with prolapse and stress urinary incontinence saw urogynecology last Wednesday. There is a plan for surgery in first week of September and meanwhile pessary was placed on last Wednesday by urogynecology. Since Wednesday she was having temperatures. She is also having soreness, itchiness and discharge in the vulval region. As it was not getting better she called [facility] and got appointment today on Wednesday at 3:30 PM with urogynecology. But yesterday she was very sick. She was having nausea. Dizzy. She was laying in the bed all day. Poor appetite. And when she went to bathroom around 4 PM she saw dots and she passed out for short period of time. Does not think she hit her head. Her heard noise and when he came to check her she was awake but confused for some time. She could not get up as her right leg was hurting. Her daughter and her lives close by and they came and helped her cleaned up and get to the the bed and called EMS and brought in here. Currently alert and awake. Denies any headache. No blurred vision. No runny nose. No sore throat or cough. Denies any chest pain or shortness of breath. No abdominal pain. Normal bowel movements. Could not able to give urine sample so far. Refused straight cath because of soreness in vulval region. Denies any hematuria. Currently hemodynamics are okay. Past medical history. As mentioned above Past surgical history. Cystoscopy with ureteral stent. Clavicle fracture repair. Laparoscopic hysterectomy. Partial removal of colon. Appendectomy. Tonsillectomy and adenoidectomy. Inguinal hernia repair. Social history. . Quit smoking 33 years ago. No alcohol use. No drug use. Family history. Aunt had breast cancer. Uncle had cancer. Brother has diabetes. Father had heart disease. Stroke. Mother had hypertension. Lymphoma. Sister has hypertension. Scoliosis. Admission Exam Per Admitting Provider General- adult Head- atraumatic Eyes- PERRL. ENT- oropharynx clear Neck- supple, no JVD. Lungs- clear to auscultation no wheezing or crackles Heart- regular rhythm; tachycardia no murmur, no gallop. Abdomen- normal bowel sounds, soft, nontender, no distension Extremities- right leg in splint, no edema or erythema in left leg. Neuro- alert, oriented PERRL, no facial palsy; no dysarthria; moves extremities except right leg which is in splint Discharge Exam General: Alert, oriented. No acute distress Psych: Appropriate mood and affect HEENT: NC/AT CV: RRR Resp: Breath sounds clear bilaterally, no increased effort of breathing Abdomen: Soft, nontender Extremities: R lower extremity in cast/splint Updated Medication List Medication Instructions Recorded Confirmed Type aspirin 81 mg tablet,delayed 81 mg PO DAILY 08/21/24 08/21/24 History release chlorthalidone 25 mg tablet 12.5 mg PO DAILY 08/21/24 08/21/24 History clonidine 0.2 mg/24 hr weekly 0.2 mg topical WK 08/21/24 08/21/24 History transdermal patch clonidine HCl 0.1 mg tablet 0.1 mg PO UD PRN htn 08/21/24 08/21/24 History conjugated estrogens 0.625 mg/gram 0.625 mg vaginal UD PRN Vaginal 08/21/24 08/21/24 History vaginal cream (Premarin) Dryness Saccharomyces boulardii 250 mg 250 mg PO DAILY #30 caps 08/29/24 Rx capsule cephalexin 500 mg capsule 500 mg PO QID #36 caps 08/29/24 Rx levofloxacin 750 mg tablet 750 mg PO Q24H #9 tabs 08/29/24 Rx metronidazole 500 mg tablet 500 mg PO BID #4 tabs 08/29/24 Rx Hospital Stay Data Consultations 08/21/24 03:07 ED Decision to Admit Stat 08/21/24 08:19 Consult Gynecology Routine Consult Orthopedic Surgery Routine 08/24/24 07:18 Consult Infectious Diseases Routine Procedures Performed Operation Date: 08/22/24 12:30 Actual Procedures p Right Fibula Fracture Open Reduction Internal Fixation with Syndesmosis(Right) - Ronak Pruitt MD Diagnostic Imagining Performed 08/21/24 01:39 CT abd pelvis IV con only Stat CT head/brain wo con Stat 08/22/24 07:00 FL ankle RT min 3V RTN Routine 08/22/24 11:41 US - OR guided needle placemen Routine Chest X-Ray 08/21/24 00:20 XR chest 1V portable HISTORY: 74 years-old Female Chest pain, nonspecific COMPARISON: 10/08/2023 TECHNIQUE: AP view of the chest FINDINGS: Cardiac silhouette is normal in size. No pneumothorax, pleural effusion or airspace consolidation. Sigmoidal thoracolumbar scoliosis. IMPRESSION: No acute process. ACT 112: Negative or not required by law. The above report was generated using voice recognition software. It may contain grammatical, syntax or spelling errors. Electronically signed by: Caden Masterson M.D. 08/21/2024 6:48 AM Ankle X-Ray 08/21/24 00:40 XR ankle RT min 3V routine CLINICAL HISTORY: Right ankle pain following fall. COMPARISON: None FINDINGS: There is an acute oblique minimally displaced fracture of the distal diaphysis of the right fibula. Fracture is displaced 3 mm. There is also an acute minimally displaced fracture of the medial malleolus. Mild medial ankle mortise widening is present. There is a possible acute nondisplaced posterior distal right tibial fracture. There is right ankle soft tissue swelling. IMPRESSION: 1. Acute oblique minimally displaced distal diaphyseal right fibular fracture. 2. Acute mildly displaced fracture of the medial malleolus and a possible acute nondisplaced fracture of the posterior distal right tibia. 3. Mild medial ankle mortise widening. 4. Ankle soft tissue swelling. ACT 112: Negative or not required by law. Electronically signed by: Hugo Curtis M.D. 08/21/2024 6:58 AM Abdomen/Pelvis CT 08/21/24 01:39 Exam(s): CT ABDOMEN + PELVIS With Contrast IV Amt: 93 ML OPTIRAY 320 EXAM: CT Abdomen and Pelvis With Intravenous Contrast CLINICAL HISTORY: Reason for exam: fever, syncope, vaginal discharge, pessary. TECHNIQUE: Axial computed tomography images of the abdomen and pelvis with intravenous contrast. CTDI is 48 mGy and DLP is 799 mGy-cm. Automated exposure control was utilized for the study. A dose lowering technique was utilized adhering to the principles of ALARA. CONTRAST: Patient received 93 ML OPTIRAY 320 of IV contrast COMPARISON: CT abdomen and pelvis October 08, 2023. FINDINGS: Lung bases: Unremarkable. No mass. No consolidation. ABDOMEN: Liver: Unremarkable. No mass. Gallbladder and bile ducts: Unremarkable. No calcified stones. No ductal dilation. Pancreas: Unremarkable. No mass. No ductal dilation. Spleen: Unremarkable. No splenomegaly. Adrenals: Unremarkable. No mass. Kidneys and ureters: Unremarkable. No solid mass. No hydronephrosis. Stomach and bowel: Diverticulosis, without acute diverticulitis. No small bowel obstruction. No free intraperitoneal air. PELVIS: Appendix: No findings to suggest acute appendicitis. Bladder: Unremarkable. No mass. Reproductive: Pessary in the pelvis. ABDOMEN and PELVIS: Intraperitoneal space: Unremarkable. No free air. No significant fluid collection. Bones/joints: Degenerative changes of the spine. Scoliosis. No acute fracture. No dislocation. Soft tissues: Unremarkable. Vasculature: Atherosclerotic changes of the aorta. No abdominal aortic aneurysm. Lymph nodes: Unremarkable. No enlarged lymph nodes. IMPRESSION: Diverticulosis, without acute diverticulitis. No small bowel obstruction. No free intraperitoneal air. Electronically signed by: Amanuel Ruiz MD 08/21/24 02:[address] 08/21/24 01:39 Exam(s): CT HEAD Without Contrast EXAM: CT Head Without Intravenous Contrast CLINICAL HISTORY: Reason for exam: syncope, fever. TECHNIQUE: Axial computed tomography images of the head/brain without intravenous contrast. CTDI is 48 mGy and DLP is 799 mGy-cm. Automated exposure control was utilized for the study. A dose lowering technique was utilized adhering to the principles of ALARA. COMPARISON: No relevant prior studies available. FINDINGS: No acute intracranial hemorrhage. No midline shift or mass effect. The territorial ayala-white matter differentiation is maintained throughout. The ventricles and sulci are commensurate with age. The visualized orbits appear grossly unremarkable. The calvarium is intact. The visualized paranasal sinuses and mastoid air cells are grossly clear. IMPRESSION: No acute intracranial hemorrhage, midline shift, or mass effect. Electronically signed by: Amanuel Ruiz MD 08/21/24 02:26 AM Ankle X-Ray 08/22/24 07:00 FL ankle RT min 3V RTN CLINICAL HISTORY: RIGHT FIBULA ORIFORIF of the right ankle COMPARISON STUDY: Right ankle radiographs 08/21/2024 FLUOROSCOPY TIME: 22.8 seconds FLUOROSCOPY IMAGES: 3 EXPOSURE DOSE: 0.5702 mGy FINDINGS: Status post plate and screw fusion of the acute distal fibular fracture along with distal syndesmotic repair. There is now satisfactory alignment. No unexpected opaque foreign bodies. IMPRESSION: Fluoroscopic assistance as above. ACT 112: Negative or not required by law. Electronically signed by: Caden Masterson M.D. 08/22/2024 2:36 PM Discharge Instructions Given to Patient (Per Discharging Provider) Diya Kvng were admitted and treated for a severe infection that we believe was related to a vaginal infection. You were seen by the outsole compressor and infectious disease specialist who recommended treatment with 3 different antibiotics. Please continue with the Keflex 4 times a day for an additional 9 days. Please continue with the Levaquin once daily for another 9 days as well. Please continue with the prescribed Flagyl twice a day for an additional 2 days. Also discharging you home with a probiotic for daily use while on the antibiotics. Please continue with your as needed Imodium at home to help with your diarrhea. Please keep close follow-up with your primary care provider And outsole compressor after discharge. You were also treated for a right distal fibular fracture with surgery. Your orthopedic surgeon recommends that you continue with physical therapy and Occupational Therapy for gait training. They advised that you should not bear weight on the right lower extremity. They would like you to follow-up in 2 weeks after your surgery. They want you to keep the splint in place until your 2-week postop appointment. Please continue with the aspirin twice a day for DVT prophylaxis after your surgery. Please keep close follow up with your primary care provider after discharge. Again please keep close follow-up with your orthopedic surgeon after discharge. Please do not hesitate to come back to the emergency room if your symptoms worsen or return. It was a pleasure taking care of you while you were here. Your orthopedic surgeon has left additional instructions for you below: Total Time Total Time Spent Total Time Spent (In Minutes): 65
[2024-08-29 12:34] VITALS: BP 139/87; PULSE 99; TEMP 97.9
== END 2024-08-29 13:36 | disposition home health service (06) | DRG 854 ==
LOC: ED 00:10 → SUATTDRO 05:07 → 2S 05:07